=== PATIENT | male | born 1960 | race Caucasian/White ===

== ENCOUNTER 2017-04-09 21:58 | Inpatient (IN) ==
[2017-04-09] MEDS ORDERED: cefTRIAXone 1,000 MG in SODIUM CHLORIDE 0.9% 100 ML IV STA (23:11)
[2017-04-09] MEDS ORDERED: ACETAMINOPHEN 500 MG TABLET PO STA (23:11)
--- NOTE | 2017-04-09 23:20 | Emergency Department Note ---
IDelores Emily, am scribing for, and in the presence of, Florentino Merrill MD 23: 07. Desirae Iglesias Charles R, MD, personally performed the services described in this documentation, ascribed by Gloria Estrella in my presence, and it is both accurate and complete [id number] . Arrival - Arrival Chief Complaint: Fever Stated Complaint: Fever, chills, Body ache, SOB ED Nursing Triage Note: C/O FEVER, CHILLS, ACHES WITH ONSET YESTERDAY Mode of Arrival: Ambulatory Limitations: No Limitations Source: Patient Time Seen by Provider: 04/09/17 22:22 - History of Present Illness HPI Narrative: Pt is a 57 y/o male who came to ED with c/o fever that started yesterday. Pt has associated sxs of body aches, chills, generalized weakness, nausea, intermittent RAMON, and SOB, but denies coughing. Ablation surgery 4 days ago to take care of Afib and has been left feeling weak. Pt stopped Lapressor medication Friday. Pt has been around spouse with RAMON, body aches, flu like sxs recently. Pt is a smoker. PMHx of Afib, HTN, HLD, sleep apnea. Onset (ago): day(s) Consistency: constant Severity: mild, moderate Severity scale (1-10): 4 Quality: aching Allergies/Adverse Reactions: Allergies Allergy/AdvReac Type Severity Reaction Status Date / Time No Known Allergies Allergy Verified 02/24/17 06:13 Home Medications: Home Medications Medication Instructions Recorded Confirmed Type Ezetimibe [Zetia] 10 mg PO QAM 01/13/17 02/24/17 History Acetaminophen [Acetaminophen ER 1,300 mg PO QAM 01/29/17 02/24/17 History Tab] Multivit-Min/FA/Lycopen/Lutein 1 each PO QAM 01/29/17 02/24/17 History [Centrum Silver Tablet] Nabumetone [Relafen] 500 mg PO BID W/MEALS 01/29/17 02/24/17 History Ezetimibe [Zetia] 10 mg PO BEDTIME tablet 02/08/17 02/24/17 Rx Apixaban [Eliquis] 5 mg PO BID #60 02/25/17 Rx Aspirin EC Tab 81 mg PO DAILY #30 tablet 02/25/17 Rx Ibuprofen 400 mg PO Q6H PRN #30 tablet 02/25/17 Rx Metoprolol Succinate Xl [Toprol Xl] 50 mg PO DAILY #90 tablet 02/25/17 Rx Omeprazole Magnesium [Prilosec Otc] 20 mg PO QAM #60 02/25/17 02/24/17 Rx Review of System - Review of System 12 point system: reviewed and no additional remarkable complaints except as stated - Review of System Constitutional: Present: chills, fever, weakness (body aches) Head/Ears/Nose/Throat: Absent: nasal drainage, sore throat (dry mouth) Respiratory: Present: respiratory distress (SOB). Absent: cough, wheezing Cardiovascular: Absent: chest pain Gastrointestinal: Present: nausea. Absent: abdominal pain, vomiting Musculoskeletal: Absent: arm pain, back pain, leg pain, neck pain Skin: Absent: rash Neurological: Present: headache (in waves) Medical,Surgical,& Family Hx - Medical History Cardio: History of: Cardiac Dysrhythmia (A-fib), Hypertension No history of: CAD, [place] Neurology: No history of: Seizures HEENT: History of: Ear Problem ([place] bilateral hearing aides), Eye Problem ( contacts/reading glasses) Endocrine: History of: Dyslipidemia Respiratory: History of: Obstructive Sleep Apnea (Bipap) Musculoskeletal: History of: Degenerative Disk Disease - Surgical History Cardiac Surgeries: Patient Denies: Cardiac Catheterization HEENT Surgeries: Patient denies: Tonsilectomy & Adenoidectomy - Family History Family History: Reports;: Family Cancer (Mother: ovarian CA), Family Heart Disease (Father: ablation, bypass, pacemaker) - Social History Smoking Status: Current every day smoker Frequency of Alcohol Use: None Type of Drug Use: None Exam Vital Signs: Vital Signs Temperature 100.4 F H 04/09/17 23:46 Pulse Rate 96 H 04/09/17 23:46 Respiratory Rate 16 04/09/17 23:46 Blood Pressure 113/70 04/09/17 23:46 O2 Sat by Pulse Oximetry 97 04/09/17 22:08 - General General appearance: alert, in no apparent distress - Head Head exam: Present: atraumatic, normocephalic - Eye Eye exam: Present: PERRL, EOMI - ENT ENT exam: Present: mucous membranes moist. Absent: mucous membranes dry - Neck Neck exam: Present: full ROM. Absent: tenderness - Chest Chest inspection: Present: symmetric chest wall rise, tenderness (left chest wall tenderness) - Respiratory Respiratory exam: Present: normal lung sounds bilaterally. Absent: respiratory distress - Cardiovascular Cardiovascular exam: Present: tachycardia, normal heart sounds - Abdominal Exam Abdominal exam: Present: soft. Absent: distention, tenderness, guarding - Extremities Exam Extremities exam: Present: full ROM. Absent: tenderness, pedal edema - Neurological Exam Neurological exam: Present: alert, oriented X3, CN II-XII intact. Absent: motor sensory deficit - Psychiatric Psychiatric exam: Present: normal affect, normal mood - Skin Skin exam: Present: warm (feels warm to touch), dry, other (erythematous in face ) Course - Consultations Consultation #1: Dr. Giron will admit for Dr. Morris Time: 00:59 Results - Labs CBC & BMP: 04/09/17 23:07 04/09/17 23:07 Lab Results: I have reviewed the patients labs Disposition Clinical Impression: Fever, Pneumonia, Status post heart ablation Case discussed with: patient, patient's family Disposition: Still a Patient Condition: Stable Time of Disposition: 01:00
[2017-04-09] MEDS ORDERED: SODIUM CHLORIDE 0.9% 100 ML IV ONE (23:23)
[2017-04-09] MEDS ORDERED: cefTRIAXone 1,000 MG VIAL ONE (23:23)
[2017-04-09] MEDS ORDERED: ACETAMINOPHEN 500 MG TABLET ONE (23:23)
[2017-04-09 23:36] LABS: Basophils % 0.1 % (0.0-0.8); Eosinophils # 0.1 10*3/uL (0.0-0.87); Eosinophils % 1.3 % (0.00-10.9); Hematocrit 39.5 VOL% (42.0-52.0); Hemoglobin 13.3 GM/DL (14.0-18.0); Immature Granulocytes % 0.3 %; Immature Granulocytes Absolute 0.02 #; Lymphocytes # 1.2 10*3/uL (1.4-4.0); Lymphocytes % 16.4 % (21.2-54.2); Mean Corpuscular HGB Conc 33.7 GM/DL (32-36); Mean Corpuscular Hemoglobin 31 PG (27-34); Mean Corpuscular Volume 90.8 FL (87-102); Mean Platelet Volume 10.3 FL (9.6-12.0); Monocytes # 0.4 10*3/uL (0.11-0.8); Monocytes % 5.8 % (1.7-12.7); Neutrophils # 5.4 10*3/uL (1.4-7.4); Neutrophils % 76.1 % (38.7-73.9); Platelet Count 277 T/CUMM (130-400); Red Blood Count 4.35 MC/CUMM (3.8-5.5); Red Cell Distribution Width 12.7 % (9.3-17.3); White Blood Count 7.1 T/CUMM (4-12)
[2017-04-09 23:45] LABS: Apearance,Urine CLEAR (Clear); Bacteria,Urine Occasional /HPF (Few); Bilirubin,Urine Negative (Negative); Blood, Urine Negative (Negative); Glucose,Urine (UA) Negative (Negative); Ketones,Urine 5 mg/dL (Negative); Mucus,Urine Few /LPF (Occasional); Nitrite,Urine Negative (Negative); Protein,Urine Negative; RBC,Urine 4 /HPF (0-4); Urine Color Yellow (Yellow); Urine Specific Gravity 1.014 (1.001-1.035); Urine Urobilinogen < 2.0 EU/DL (0.2-1.0)
[2017-04-09 23:46] LABS: Albumin 3.9 G/DL (3.4-5.0); Bilirubin,Total 0.5 MG/DL (0.2-1.0); Calcium 8.6 MG/DL (8.5-10.1); Osmolality,Calculated 271.8 MOS/KG (273-304); Total Protein 7.2 G/DL (6.4-8.3)
[2017-04-10 01:09] LABS: Sedimentation Rate-Westergren 19 MM/HR (0-20)
[2017-04-10] MEDS ORDERED: ONDANSETRON 4 MG/2 ML VIAL IV PRN (01:48)
[2017-04-10 02:45] LABS: Albumin 3.7 G/DL (3.4-5.0); Bilirubin,Total 0.5 MG/DL (0.2-1.0); Calcium 8.7 MG/DL (8.5-10.1); Magnesium 1.9 MG/DL (1.8-2.4); Osmolality,Calculated 271.8 MOS/KG (273-304); Potassium 3.9 MMOL/L (3.5-5.1); Total Protein 6.8 G/DL (6.4-8.3)
[2017-04-10] MEDS: SODIUM CHLORIDE 0.9% 1,000 ML IV SCH ×2 (03:15→15:43)
--- NOTE | 2017-04-10 07:51 | Family Practice History&Phys ---
Assessment and Plan (1) Fever Status: Acute Assessment and plan: Patient is developed fever weakness of unknown etiology. Will do further studies to evaluate Current Visit: Yes (2) History of atrial fibrillation Status: Chronic Assessment and plan: Stable post ablation Current Visit: Yes (3) Dyslipidemia Status: Chronic Assessment and plan: Stable at present Current Visit: No (4) Hypertension Status: Chronic Assessment and plan: Stable to present Current Visit: No Qualifiers: Hypertension type: essential hypertension Qualified Code(s): I10 - Essential (primary) hypertension (5) Sleep apnea Status: Chronic Assessment and plan: Stable at present Current Visit: No History of Present Illness Chief complaint: Fever, weakness, chest wall pain History of present illness: Mr. Madison is a 57 year old male - History of Present Illness HPI Narrative: Pt is a 57 y/o male who came to ED with c/o fever that started yesterday. Pt has associated sxs of body aches, chills, generalized weakness, nausea, intermittent RAMON, and SOB, but denies coughing. Ablation surgery 1 month ago to take care of Afib and has been left feeling weak. Pt stopped Lapressor medication Friday. Pt has been around spouse with RAMON, body aches, flu like sxs recently. Pt is a smoker. PMHx of Afib, HTN, HLD, sleep apnea. Patient states that he is actually been weak and dyspneic almost since the ablation procedure. States she has not been able to his normal work activities because of dyspnea. He is having some sharp type pain in the left chest which appears to be chest wall in nature. Seen in emergency room view of history admitted for further evaluation therapy Home Medications Medication Instructions Recorded Confirmed Type Ezetimibe [Zetia] 10 mg PO QAM 01/13/17 04/10/17 History Acetaminophen [Acetaminophen ER 1,300 mg PO QAM 01/29/17 04/10/17 History Tab] Multivit-Min/FA/Lycopen/Lutein 1 each PO QAM 01/29/17 04/10/17 History [Centrum Silver Tablet] Nabumetone [Relafen] 500 mg PO BID W/MEALS 01/29/17 04/10/17 History Apixaban [Eliquis] 5 mg PO BID #60 02/25/17 04/10/17 Rx Ibuprofen 400 mg PO Q6H PRN #30 tablet 02/25/17 04/10/17 Rx Omeprazole Magnesium [Prilosec Otc] 20 mg PO QAM #60 02/25/17 04/10/17 Rx Allergies Allergy/AdvReac Type Severity Reaction Status Date / Time No Known Allergies Allergy Verified 02/24/17 06:13 Medical,Surgical,& Family Hx - Medical History Cardio: History of: Cardiac Dysrhythmia (A-fib), Hypertension No history of: CAD, [place] Psychological: No history of: Anxiety Disorders, ADHD, Behavior Problems, Bipolar Disorder, Depression, Previous Suicide Attempt, Psychiatric/Substance Abuse Tx, Schizophrenia, Violent Behavior, Psychiatric Problems Neurology: No history of: Seizures HEENT: History of: Ear Problem ([place] bilateral hearing aides), Eye Problem ( contacts/reading glasses), HEENT Problems No history of: Glaucoma, Oral Cancer Endocrine: History of: Dyslipidemia No history of: Adrenal Disease, Diabetes Mellitus (IDDM), Diabetes Mellitus ( NIDDM), Thyroid Disorder, Endocrine Cancer, Endocrine Problems Respiratory: History of: Obstructive Sleep Apnea (Bipap), Pneumonia Musculoskeletal: History of: Degenerative Disk Disease No history of: Amputation Hematology: No history of: Anemia, Bleeding Problems, Clotting Problems, Sickle Cell Disease, Hematologic Cancer, Blood Disorders - Surgical History Cardiac Surgeries: Patient Denies: Cardiac Catheterization Thoracic Surgeries: Patient denies;: Organ Transplant, Lobectomy Neurologic Surgeries: Patient denies: Neurologic Surgery HEENT Surgeries: Surgical HX of: Tonsilectomy & Adenoidectomy Patient denies: Eye Surgery, Thyroid Surgery Abdominal Surgeries: Patient denies: Abdominal Surgery Reproductive Surgeries: Patient denies;: Breast Surgery, Genitourinary Surgery, Vasectomy Orthopedic Surgeries: Patient denies;: Implanted Devices, Orthopedic Surgery, Spinal Surgery, Total Hip Replacement, Total Knee Replacement - Family History Family History: Reports;: Family Cancer (Mother: ovarian CA), Family Heart Disease (Father: ablation, bypass, pacemaker) Denies;: Family Anesthesia Reaction, Family Hematology, Family Hypertension, Family Psychiatric Problems, Family Stroke - Social History Smoking Status: Current every day smoker Frequency of Alcohol Use: None Type of Drug Use: None Marital Status: Lives With:: Spouse Functional capacity: independent ambulation Exam - Constitutional Vitals: Period Temp Pulse Resp BP Sys/Parker Pulse Ox Last 24 Hr 97.8 F-99.8 F 71-78 20-20 118-135/69-76 92-94 General appearance: mild distress - Head Head exam: Present: normal inspection - Eye Pupils: Present: AUNDREA - ENT ENT exam: Present: normal exam - Neck Neck exam: Present: normal inspection - Respiratory Respiratory exam: Present: clear to auscultation bilaterally, chest wall tenderness - Cardiovascular Cardiovascular exam: Present: regular rate and rhythm - GI/Abdominal GI/Abdominal exam: Present: normal bowel sounds, soft - Extremities Exam Extremities exam: Present: normal inspection - Back Exam Back exam: Present: normal inspection - Neurological Exam Neurological exam: Present: alert, oriented X3 - Psychiatric Psychiatric exam: Present: normal affect - Skin Skin exam: Present: normal color Results - Labs CBC & BMP: 04/09/17 23:07 04/10/17 02:05
--- NOTE | 2017-04-10 07:55 | Family Practice History&Phys ---
History of Present Illness Chief complaint: Fever and weakness History of present illness: Mr. Madison is a 57 year old male Home Medications Medication Instructions Recorded Confirmed Type Ezetimibe [Zetia] 10 mg PO QAM 01/13/17 04/10/17 History Acetaminophen [Acetaminophen ER 1,300 mg PO QAM 01/29/17 04/10/17 History Tab] Multivit-Min/FA/Lycopen/Lutein 1 each PO QAM 01/29/17 04/10/17 History [Centrum Silver Tablet] Nabumetone [Relafen] 500 mg PO BID W/MEALS 01/29/17 04/10/17 History Apixaban [Eliquis] 5 mg PO BID #60 02/25/17 04/10/17 Rx Ibuprofen 400 mg PO Q6H PRN #30 tablet 02/25/17 04/10/17 Rx Omeprazole Magnesium [Prilosec Otc] 20 mg PO QAM #60 02/25/17 04/10/17 Rx Allergies Allergy/AdvReac Type Severity Reaction Status Date / Time No Known Allergies Allergy Verified 02/24/17 06:13 Medical,Surgical,& Family Hx - Medical History Cardio: History of: Cardiac Dysrhythmia (A-fib), Hypertension No history of: CAD, [place] Psychological: No history of: Anxiety Disorders, ADHD, Behavior Problems, Bipolar Disorder, Depression, Previous Suicide Attempt, Psychiatric/Substance Abuse Tx, Schizophrenia, Violent Behavior, Psychiatric Problems Neurology: No history of: Seizures HEENT: History of: Ear Problem ([place] bilateral hearing aides), Eye Problem ( contacts/reading glasses), HEENT Problems No history of: Glaucoma, Oral Cancer Endocrine: History of: Dyslipidemia No history of: Adrenal Disease, Diabetes Mellitus (IDDM), Diabetes Mellitus ( NIDDM), Thyroid Disorder, Endocrine Cancer, Endocrine Problems Respiratory: History of: Obstructive Sleep Apnea (Bipap), Pneumonia Musculoskeletal: History of: Degenerative Disk Disease No history of: Amputation Hematology: No history of: Anemia, Bleeding Problems, Clotting Problems, Sickle Cell Disease, Hematologic Cancer, Blood Disorders - Surgical History Cardiac Surgeries: Patient Denies: Cardiac Catheterization Thoracic Surgeries: Patient denies;: Organ Transplant, Lobectomy Neurologic Surgeries: Patient denies: Neurologic Surgery HEENT Surgeries: Surgical HX of: Tonsilectomy & Adenoidectomy Patient denies: Eye Surgery, Thyroid Surgery Abdominal Surgeries: Patient denies: Abdominal Surgery Reproductive Surgeries: Patient denies;: Breast Surgery, Genitourinary Surgery, Vasectomy Orthopedic Surgeries: Patient denies;: Implanted Devices, Orthopedic Surgery, Spinal Surgery, Total Hip Replacement, Total Knee Replacement - Family History Family History: Reports;: Family Cancer (Mother: ovarian CA), Family Heart Disease (Father: ablation, bypass, pacemaker) Denies;: Family Anesthesia Reaction, Family Hematology, Family Hypertension, Family Psychiatric Problems, Family Stroke - Social History Smoking Status: Current every day smoker Frequency of Alcohol Use: None Type of Drug Use: None Exam - Constitutional Vitals: Period Temp Pulse Resp BP Sys/Parker Pulse Ox Last 24 Hr 97.8 F-99.8 F 71-78 20-20 118-135/69-76 92-94 Results - Labs CBC & BMP: 04/09/17 23:07 04/10/17 02:05
--- NOTE | 2017-04-10 08:24 | XRay Report ---
XR chest 2V Indication: SOB/fever Comparison: Chest x-ray dated February 11, 2017 Technique: Frontal and lateral views of the chest Findings: Cardiomediastinal silhouette is stable in configuration. No focal consolidation, pleural effusion, or pneumothorax. Bilateral peribronchial cuffing is noted which can be seen with reactive change of viral or environmental origin. Osseous and surrounding soft tissue structures appear grossly unchanged. IMPRESSION: As above. PROCEDURE INTERPRETED AT [facility] DEPARTMENT OF RADIOLOGY Final Report Signed by: Dr Alvaro Conrad
--- NOTE | 2017-04-10 08:50 | Event Note ---
I spoke with Dr. Bhatia this morning regarding patient's admission. Patient is status post RFA January 2017. Because of the weakness, fever the following is being ordered: CT Chest with contrast (R/O atrial-esophageal fistula), echo, ESR and CRP.
[2017-04-10] MEDS: DOCUSATE SODIUM 100 MG CAPSULE PO SCH ×3 (09:22→21:46)
[2017-04-10] MEDS: APIXABAN 5 MG TABLET PO SCH ×3 (09:22→21:43)
[2017-04-10] MEDS: MULTIVITAMIN (CENTRUM) TABLET PO SCH (09:22)
[2017-04-10] MEDS: EZETIMIBE 10 MG TABLET PO SCH (09:22)
[2017-04-10] MEDS: PANTOPRAZOLE 40 MG TABLET PO SCH (09:23)
--- NOTE | 2017-04-10 10:49 | CT Report ---
CT chest w con Indication: Rule out atrial esophageal fistula post RFA Comparison: None Technique: Multiple axial tomographic images of the chest were obtained after the administration of 80 cc Omnipaque 350 intravenous contrast. Findings: No evidence of aortic dissection. [id number] prominence of right hilar lymph node measuring up to 1.2 cm in short axis dimension. There is mild bilateral lymph node prominence which do not meet CT size criteria. Coronary artery calcifications present. Heart size appears within normal limits. Mild dependent change of the lungs present. Too small to characterize right renal cyst. Bilobular left renal cyst measuring up to 3.4 cm. Hypodense oval structure within proximal stomach measuring approximately 2 cm likely reflects an ingested pill. The esophagus and left atrium appear grossly unremarkable. Osseous and surrounding soft tissue structures demonstrate no acute abnormality. IMPRESSION: The left atrium and thoracic esophagus appear within normal limits without convincing CT evidence of fistula. There is mild nonspecific prominence of hilar lymph nodes. Detailed findings as above. The CT exam was performed using one or more of the following dose reduction techniques: Automated exposure control, adjustment of the mA and/or kV according to patient size, or use of iterative reconstruction technique. PROCEDURE INTERPRETED AT [facility] DEPARTMENT OF RADIOLOGY Final Report Signed by: Dr Alvaro Conrad
--- NOTE | 2017-04-10 16:05 | Cardiology Consult Note ---
Harris, Christi Parks RN, am scribing for, and in the presence of, Isak Taylor MD 16:01. Assessment and Plan - Time spent with patient Time spent with patient: Greater than 30 minutes (1) S/P ablation of atrial fibrillation Status: Acute Assessment and plan: INITIAL CONSULT APRIL 10, 2017: ASSESSMENT/PLAN: 1. 57-year-old with hypertension, dyslipidemia, VANESSA, paroxysmal fibrillation status post ablation January 2017 had some intermittent fatigue and chest discomfort since his ablation, and modest dyspnea on exertion for over 6 months which is unchanged, who presented with some degree of prostration nausea and fever which she developed less than 48 hours after his had similar symptoms. 2. CT shows no suggestion of atrial esophageal fistula 3. Suspect this is an illness he caught from his 4. Recurrent atypical chest pain, may be pericardial etiology? It occasionally is exertional but this is not consistent he has a rest as well. I agree with NSAIDs. 5. Normal ejection fraction October 2016, with reportedly unremarkable stress test last fall with Dr. Martinez office. 6. Supportive care Current Visit: Yes (2) Fever Status: Acute Current Visit: Yes (3) History of atrial fibrillation Status: Chronic Current Visit: Yes (4) Dyslipidemia Status: Chronic Current Visit: No (5) Hypertension Status: Chronic Current Visit: No Qualifiers: Hypertension type: essential hypertension Qualified Code(s): I10 - Essential (primary) hypertension (6) Sleep apnea Status: Chronic Current Visit: No (7) Statin intolerance Status: Chronic Current Visit: No (8) Tobacco abuse Status: Chronic Current Visit: No (9) Weakness Status: Acute Current Visit: Yes History of Present Illness - Data of Consult Patient: known to practice within the last 3 years Consult date: 04/10/17 Requesting Physician: Florentino Merrill - Consult Narrative Reason for consult: fever, weakness, flu like s/s, recent AF ablation w/ PVI History of present illness: PRIMARY [employer] DECORATOR: DR. KERI MARTINEZ PCP: DR. MORRIS TOMOGRAPHIC TECH: DR. PATRICA BHATIA CARDIOLOGY CONSULT NOTE: FEVER, WEAKNESS, STATUS POST A-FIB ABLATION JANUARY 2017 Mr. Madison is a 57 year old white male routinely followed by Dr. Martinez for cardiology. Risk factors include: hypertension, hyperlipidemia, tobaccosim. Past medical history significant for paroxysmal atrial fibrillation, VAENSSA with BiPap use, statin intolerance (currently takes Zetia). Mr. Madison was recently diagnosed with atrial fibrillation in October 2016, and this was discovered incidentally by Dr. Ben Christine during examination prior to nerve ablation. Upon diagnosis, patient had no previous knowledge of having atrial fibrillation. Since October, patient had multiple admissions for atrial fibrillation with RVR and has become symptomatic. He was referred to Dr. Bhatia for ablation, and on 02/24/17 underwent ablation of atrial fibrillation with pulmonary vein isolation. Post ablation, Multitak and Cardizem were discontinued. Patient followed up with Dr. Bhatia in clinic on 03/11 and felt generally well. During visit, metoprolol was continued 1 month and discontinue. Eliquis was continued. Patient presented to the emergency room on the night of 04/09 with complaints of fever, generalized weakness, shortness of breath, chills, and nausea with onset the day before. He did deny cough or sputum production. Patient noted to have temperature 100.4F. He did admit to being exposed to spouse who has also recently had flulike symptoms. [facility]. Since admission, he has complained of some left- sided chest pain, has admitted to dyspnea, and this has prevented him from returning to work. Dr. Bhatia was consulted for further evaluation, and as he is out of town at this time, cardiology will follow. Previous echocardiogram October 2016 with normal systolic/diastolic function and LV ejection fraction 60%, mild dilation of right cardiac chambers, normal pulmonary pressure, and mild left atrial dilation. We have spoken with Dr. Bhatia, and care has been coordinated. Patient will have CT chest with contrast, echo, CRP and ESR. Rule out atrial esophageal fistula. CC: Mitesh Morris, DO - Home Medications and Allergies Home Medications: Home Medications Medication Instructions Recorded Confirmed Type Ezetimibe [Zetia] 10 mg PO QAM 01/13/17 04/10/17 History Acetaminophen [Acetaminophen ER 1,300 mg PO QAM 01/29/17 04/10/17 History Tab] Multivit-Min/FA/Lycopen/Lutein 1 each PO QAM 01/29/17 04/10/17 History [Centrum Silver Tablet] Nabumetone [Relafen] 500 mg PO BID W/MEALS 01/29/17 04/10/17 History Apixaban [Eliquis] 5 mg PO BID #60 02/25/17 04/10/17 Rx Ibuprofen 400 mg PO Q6H PRN #30 tablet 02/25/17 04/10/17 Rx Omeprazole Magnesium [Prilosec Otc] 20 mg PO QAM #60 02/25/17 04/10/17 Rx Allergies/Adverse Reactions: Allergies Allergy/AdvReac Type Severity Reaction Status Date / Time No Known Allergies Allergy Verified 02/24/17 06:13 Medical,Surgical,& Family Hx - Medical History Cardio: History of: Cardiac Dysrhythmia (A-fib), Hypertension No history of: CHF, CAD, ID, Pacemaker, PVD, Valvular Heart Disease Psychological: No history of: Anxiety Disorders, ADHD, Behavior Problems, Bipolar Disorder, Depression, Previous Suicide Attempt, Psychiatric/Substance Abuse Tx, Schizophrenia, Violent Behavior, Psychiatric Problems Neurology: No history of: Seizures HEENT: History of: Ear Problem (MIAMI bilateral hearing aides), Eye Problem ( contacts/reading glasses), HEENT Problems No history of: Glaucoma, Oral Cancer Endocrine: History of: Dyslipidemia No history of: Adrenal Disease, Diabetes Mellitus (IDDM), Diabetes Mellitus ( NIDDM), Thyroid Disorder, Endocrine Cancer, Endocrine Problems Respiratory: History of: Obstructive Sleep Apnea (Bipap), Pneumonia No history of: Pulmonary Hypertension Gastrointestinal: History of: GERD Musculoskeletal: History of: Degenerative Disk Disease No history of: Amputation Hematology: No history of: Anemia, Bleeding Problems, Clotting Problems, Sickle Cell Disease, Hematologic Cancer, Blood Disorders - Surgical History Cardiac Surgeries: Patient Denies: Cardiac Catheterization Thoracic Surgeries: Patient denies;: Organ Transplant, Lobectomy Neurologic Surgeries: Patient denies: Neurologic Surgery HEENT Surgeries: Surgical HX of: Tonsilectomy & Adenoidectomy Patient denies: Eye Surgery, Thyroid Surgery Abdominal Surgeries: Patient denies: Abdominal Surgery Reproductive Surgeries: Patient denies;: Breast Surgery, Genitourinary Surgery, Vasectomy Orthopedic Surgeries: Patient denies;: Implanted Devices, Orthopedic Surgery, Spinal Surgery, Total Hip Replacement, Total Knee Replacement - Family History Family History: Reports;: Family Cancer (Mother: ovarian CA), Family Heart Disease (Father: ablation, bypass, pacemaker) Denies;: Family Anesthesia Reaction, Family Hematology, Family Hypertension, Family Psychiatric Problems, Family Stroke - Social History Smoking Status: Current every day smoker Frequency of Alcohol Use: None Type of Drug Use: None Physical Examination Vital Signs Temp Pulse Resp BP Pulse Ox 100.4 F H 96 H 20 113/70 97 04/09/17 22:08 04/09/17 22:08 04/09/17 22:08 04/09/17 22:08 04/09/17 22:08 Result/EKG - Labs CBC & BMP: 04/09/17 23:07 04/10/17 02:05 Lab Results: I have reviewed the past 24 hour labs Labs: Laboratory Results - last 24 hr 04/10/17 04/10/17 02:05 02:05 Sodium 137 Potassium 3.9 Chloride 106 Carbon Dioxide 23 Anion Gap 11.9 BUN 9 Creatinine 0.90 GFR Calculation 123 BUN/Creatinine Ratio 10.00 Glucose 97 Calculated Osmolality 271.8 L Calcium 8.7 Magnesium 1.9 Total Bilirubin 0.50 AST 13 ALT 22 Alkaline Phosphatase 81 B-Natriuretic Peptide 14 Total Protein 6.8 Albumin 3.7 Globulin 3.1 Albumin/Globulin Ratio 1.1 - Diagnostic Findings Procedure: Chest x-ray: image reviewed by me, report reviewed by me (04/09/17: No consolidation, pleural effusion, or pneumothorax. Bilateral peribronchial cuffing noted, and can be seen with viral change.) - EKG EKG results: interpreted by me, no acute changes EKG shows: sinus rhythm Brandon Iglesias Randall Scott, MD, personally performed the services described in this documentation, ascribed by Christi Parks RN in my presence, and it is both accurate and complete 605 .
[2017-04-10] MEDS: IBUPROFEN 400 MG TABLET PO PRN (16:51)
[2017-04-10] MEDS: NABUMETONE 500 MG TABLET PO SCH (17:09)
--- NOTE | 2017-04-10 17:52 | ECHO Report ---
Brooks Madison Exam Date: 04/10/2017 11:02 Referring Physician: Technologist: Nidhi Nick Age: 57 Ht (in): 73 Wt (lb): 228 Gender: M Exam Location: [facility] Echo Indications: a FIB, dyspnea, chest pain, fever, pneumonia BP: 122 / 59 HR: 66 Rhythm: Sinus Technical Quality: IMPRESSIONS 2+ left atrial enlargement 2+ concentric LVH Normal LV systolic function with ejection fraction estimated 55% without segmental wall motion abnormality 1+ tricuspid regurgitation with RVSP 17 mmHg plus RAP Monitor strip suggests sinus mechanism MEASUREMENTS (Male / Female) Normal Values 2D ECHO LV Diastolic Diameter PLAX 4.6 cm 4.2 - 5.9 / 3.9 - 5.3 cm LV Systolic Diameter PLAX 3.6 cm LV Fractional Shortening PLAX 21.2 % IVS Diastolic Thickness 1.7 cm 0.6 - 1.0 / 0.6 - 0.9 cm LVPW Diastolic Thickness 1.6 cm 0.6 - 1.0 / 0.6 - 0.9 cm RV Internal Dim ED PLAX 3.0 cm Aortic Root Diameter 2.9 cm LA Systolic Diameter LX 4.5 cm 3.0 - 4.0 / 2.7 - 3.8 cm DOPPLER TR Peak Velocity 205.0 cm/s TR Peak Gradient 16.8 mmHg FINDINGS Left Ventricle Severely increased septal wall thickness. Moderate concentric left ventricular hypertrophy with diastolic dysfunction. Left ventricular ejection fraction is estimated at Right Ventricle Normal right ventricular size. Right Atrium Normal right atrial size. Left Atrium Mildly increased left atrial diameter. Mitral Valve Mild mitral valve sclerosis. Mild mitral valve regurgitation. Aortic Valve Mild aortic valve sclerosis. Tricuspid Valve Morphologically normal tricuspid valve. Mild tricuspid valve regurgitation. Tricuspid regurgitation velocities suggest a PAP of 16.8 mmHg + RAP. Pulmonic Valve Morphologically normal pulmonic valve. Pericardium No pericardial effusion. Aorta Normal size aortic root and proximal ascending aorta. Isak Taylor (Electronically Signed) Final Date: 10 Apr 2017 17:51
[2017-04-10] MEDS: ACETAMINOPHEN 325 MG TABLET PO PRN (21:39)
[2017-04-10] MEDS: cefTRIAXone 1,000 MG in SODIUM CHLORIDE 0.9% 100 ML IV SCH (23:13)
[2017-04-10] MEDS: oxyCODONE/ACETAMINOPHEN 5-325 MG TABLET PO PRN (23:52)
[2017-04-11] MEDS: SODIUM CHLORIDE 0.9% 1,000 ML IV SCH ×2 (04:14→17:10)
[2017-04-11 06:16] LABS: Basophils % 0.1 % (0.0-0.8); Eosinophils # 0.2 10*3/uL (0.0-0.87); Eosinophils % 2.6 % (0.00-10.9); Hematocrit 36.2 VOL% (42.0-52.0); Immature Granulocytes % 0.3 %; Immature Granulocytes Absolute 0.02 #; Lymphocytes # 2.6 10*3/uL (1.4-4.0); Lymphocytes % 34.4 % (21.2-54.2); Mean Corpuscular HGB Conc 33.1 GM/DL (32-36); Mean Corpuscular Hemoglobin 31 PG (27-34); Mean Platelet Volume 10.4 FL (9.6-12.0); Monocytes # 0.8 10*3/uL (0.11-0.8); Monocytes % 10.4 % (1.7-12.7); Neutrophils # 3.9 10*3/uL (1.4-7.4); Neutrophils % 52.2 % (38.7-73.9); Platelet Count 240 T/CUMM (130-400); Red Blood Count 3.85 MC/CUMM (3.8-5.5); Red Cell Distribution Width 12.9 % (9.3-17.3); White Blood Count 7.4 T/CUMM (4-12)
[2017-04-11 06:46] LABS: Calcium 8.3 MG/DL (8.5-10.1); Magnesium 2.3 MG/DL (1.8-2.4); Osmolality,Calculated 276.4 MOS/KG (273-304)
[2017-04-11 08:57] LABS: Apearance,Urine CLEAR (Clear); Bilirubin,Urine Negative (Negative); Blood, Urine Negative (Negative); Glucose,Urine (UA) Negative (Negative); Ketones,Urine Negative (Negative); Mucus,Urine Occasional /LPF (Occasional); Nitrite,Urine Negative (Negative); Protein,Urine Negative; RBC,Urine 1 /HPF (0-4); Urine Color Yellow (Yellow); Urine Specific Gravity 1.014 (1.001-1.035); Urine Urobilinogen < 2.0 EU/DL (0.2-1.0); WBC,Urine <1 /HPF (0-6)
[2017-04-11] MEDS: NABUMETONE 500 MG TABLET PO SCH ×2 (09:00→16:44)
[2017-04-11] MEDS: APIXABAN 5 MG TABLET PO SCH ×2 (09:00→21:07)
[2017-04-11] MEDS: EZETIMIBE 10 MG TABLET PO SCH (09:00)
[2017-04-11] MEDS: MULTIVITAMIN (CENTRUM) TABLET PO SCH (09:00)
[2017-04-11] MEDS: PANTOPRAZOLE 40 MG TABLET PO SCH (09:01)
[2017-04-11] MEDS: DOCUSATE SODIUM 100 MG CAPSULE PO SCH ×2 (09:01→21:07)
[2017-04-11] MEDS: IBUPROFEN 400 MG TABLET PO PRN ×2 (09:03→16:44)
--- NOTE | 2017-04-11 10:26 | EKG Report ---
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
--- NOTE | 2017-04-11 11:50 | Family Practice Progress Note ---
Family Practice - PN: Subj Interval history: Patient was initially admitted with fever or weakness and chest pain. Patient has been weak since recent ablation treatment for atrial fibrillation. He thinks some of the weakness was related to Lopressor that he was started on following the ablation. He stopped the Lopressor 2 days ago. I had treated his earlier in the week with similar complaints of cough congestion fever headache etc. Patient's symptoms are very similar to her original symptoms. The patient's chest complaints appear to Be chest wall in nature. I can reproduce the pain by palpation anterior chest wall with pain over the posterior insertion of the same ribs. Chest x-ray, lab studies and cardiac echo were unremarkable. He also had a chest CT which is unremarkable. Cultures have been negative. Patient states she feels some better but still weak. I feel that most of his symptoms are viral in nature. We'll continue present therapy and have patient increase level of activity. Hopefully be ready for discharge in a.m.. His lung mathew are clear to auscultation and the remainder of exam is stable. Exam (Progress Note) - Constitutional Vitals: Period Temp Pulse Resp BP Sys/Parker Pulse Ox Last 24 Hr 98.2 F-99.5 F 54-75 18-20 94-121/51-71 92-97 Results - Labs CBC & BMP: 04/11/17 05:26 04/11/17 05:26 Assessment and Plan (1) Fever Status: Acute Assessment and plan: Patient is developed fever weakness of unknown etiology. Will do further studies to evaluate Current Visit: Yes (2) History of atrial fibrillation Status: Chronic Assessment and plan: Stable post ablation Current Visit: Yes (3) Dyslipidemia Status: Chronic Assessment and plan: Stable at present Current Visit: No (4) Hypertension Status: Chronic Assessment and plan: Stable to present Current Visit: No Qualifiers: Hypertension type: essential hypertension Qualified Code(s): I10 - Essential (primary) hypertension (5) Sleep apnea Status: Chronic Assessment and plan: Stable at present Current Visit: No
--- NOTE | 2017-04-11 11:53 | XRay Report ---
XR chest 2V Indication: Shortness of breath. Chest 2 views: Comparison 04/09/2017. Increasing patchy infiltrate left perihilar lung noted, as well as some increased interstitial prominence of both lung bases. Pulmonary apices remain clear. Heart size is normal. Impression: Worsening left perihilar and bibasilar pneumonia and/or atelectasis. Query aspiration. PROCEDURE INTERPRETED AT [facility] DEPARTMENT OF RADIOLOGY Final Report Signed by: Andrea Badillo M.D.
[2017-04-11] MEDS: ALBUTEROL/IPRATROPIUM 3 ML NEB RESP TX PRN (15:16)
[2017-04-11] MEDS: oxyCODONE/ACETAMINOPHEN 5-325 MG TABLET PO PRN (21:07)
[2017-04-11] MEDS: cefTRIAXone 1,000 MG in SODIUM CHLORIDE 0.9% 100 ML IV SCH (21:10)
[2017-04-12] MEDS: IBUPROFEN 400 MG TABLET PO PRN ×2 (01:25→08:31)
[2017-04-12 06:02] LABS: Basophils % 0.3 % (0.0-0.8); Eosinophils # 0.3 10*3/uL (0.0-0.87); Eosinophils % 5.7 % (0.00-10.9); Hematocrit 35.7 VOL% (42.0-52.0); Immature Granulocytes % 0.3 %; Immature Granulocytes Absolute 0.02 #; Lymphocytes # 2.4 10*3/uL (1.4-4.0); Lymphocytes % 42.5 % (21.2-54.2); Mean Corpuscular HGB Conc 33.6 GM/DL (32-36); Mean Corpuscular Hemoglobin 31 PG (27-34); Mean Corpuscular Volume 91.5 FL (87-102); Monocytes # 0.6 10*3/uL (0.11-0.8); Monocytes % 10.5 % (1.7-12.7); Neutrophils # 2.3 10*3/uL (1.4-7.4); Neutrophils % 40.7 % (38.7-73.9); Platelet Count 252 T/CUMM (130-400); Red Cell Distribution Width 12.7 % (9.3-17.3); White Blood Count 5.7 T/CUMM (4-12)
[2017-04-12 06:35] LABS: Calcium 8.5 MG/DL (8.5-10.1); Magnesium 2.1 MG/DL (1.8-2.4)
[2017-04-12] MEDS: MULTIVITAMIN (CENTRUM) TABLET PO SCH (08:31)
[2017-04-12] MEDS: PANTOPRAZOLE 40 MG TABLET PO SCH (08:32)
[2017-04-12] MEDS: EZETIMIBE 10 MG TABLET PO SCH (08:32)
[2017-04-12] MEDS: DOCUSATE SODIUM 100 MG CAPSULE PO SCH ×2 (08:32→20:49)
[2017-04-12] MEDS: APIXABAN 5 MG TABLET PO SCH ×2 (08:32→20:49)
[2017-04-12] MEDS: NABUMETONE 500 MG TABLET PO SCH ×2 (08:33→20:00)
--- NOTE | 2017-04-12 17:09 | Discharge Summary ---
Discharge Plan - Discharge Medications No Action Multivit-Min/FA/Lycopen/Lutein [Centrum Silver Tablet] 1 each PO QAM Nabumetone [Relafen] 500 mg PO BID W/MEALS Ibuprofen 400 mg PO Q6H PRN #30 tablet PRN Reason: Chest Pain Apixaban [Eliquis] 5 mg PO BID #60 Omeprazole Magnesium [Prilosec Otc] 20 mg PO QAM #60 Ezetimibe [Zetia] 10 mg PO QAM Acetaminophen [Acetaminophen ER Tab] 1,300 mg PO QAM - Follow Up or Referral - Forms/Instructions Exam - Constitutional Vitals: Period Temp Pulse Resp BP Sys/Parker Pulse Ox Last 24 Hr 97.3 F-98.7 F 60-63 16-20 100-129/55-78 93-98 Discharge Results Procedures and tests throughout hospitalization: Pending Orders 04/13/17 04:00 BMP w/ Mg [Basic Metabolic Panel w/Mg] IN AM CBC [Comp Blood Count Auto Diff] IN AM 04/14/17 04:00 BMP w/ Mg [Basic Metabolic Panel w/Mg] IN AM CBC [Comp Blood Count Auto Diff] IN AM Labs on day of discharge: Labs from last 24 hours 04/12/17 04/12/17 05:22 05:22 WBC 5.7 RBC 3.90 Hgb 12.0 L Hct 35.7 L MCV 91.5 MCH 31 MCHC 33.6 RDW 12.7 Plt Count 252 MPV 11.0 Neut % (Auto) 40.7 Lymph % (Auto) 42.5 Harmon % (Auto) 10.5 Eos % (Auto) 5.7 Baso % (Auto) 0.3 Neut # (Auto) 2.3 Lymph # (Auto) 2.4 Harmon # (Auto) 0.6 Eos # (Auto) 0.3 Baso # (Auto) 0.0 Immature Gran % 0.3 Nucleated RBC % 0.0 Immature Gran # 0.02 Nucleated RBCs # 0.00 Sodium 143 Potassium 4.0 Chloride 108 H Carbon Dioxide 25 Anion Gap 14.0 BUN 7 Creatinine 0.70 GFR Calculation 137 BUN/Creatinine Ratio 10.00 Glucose 102 Calculated Osmolality 282.0 Calcium 8.5 Magnesium 2.1 DS: Provider Date of admission: 04/10/17 01:02 Primary care physician: . No PCP Attending physician on admission: Mitesh Morris, Discharging clinician: Kacy Jean DO
--- NOTE | 2017-04-12 17:18 | Internal Med Progress Note ---
Assessment and Plan (1) Elevated C-reactive protein (CRP) Status: Acute Current Visit: Yes (2) Pneumonia Status: Acute Current Visit: Yes (3) S/P ablation of atrial fibrillation Status: Chronic Current Visit: Yes (4) Weakness Status: Chronic Current Visit: Yes (5) History of atrial fibrillation Status: Chronic Current Visit: Yes (6) Hypertension Status: Chronic Current Visit: Yes Qualifiers: Hypertension type: essential hypertension Qualified Code(s): I10 - Essential (primary) hypertension (7) Sleep apnea Status: Chronic Current Visit: Yes Qualifiers: Sleep apnea type: obstructive Qualified Code(s): G47.33 - Obstructive sleep apnea (adult) (pediatric) Internal Medicine - PN: Subj Interval history: This is a 57 year old male patient of Dr. Morris with history of OA, VANESSA with BiPAP, HTN, dyslipidemia, intolerance to statins, chronic atrial fibrillation and status post ablation per Dr. Bhatia, who presented to ER with worsening weakness and exertional shortness of breath since the ablation several weeks ago. He has been treated for pneumonia. Inflammatory markers are elevated. Have added Toradol and Solumedrol for anti-inflammatory effect. Exam (Progress Note) - Constitutional Vitals: Period Temp Pulse Resp BP Sys/Parker Pulse Ox Last 24 Hr 97.3 F-98.7 F 60-63 16-20 100-129/55-78 93-98 General appearance: no acute distress - Head Head exam: Present: normocephalic - Eye Eye exam: Present: EOMI - Respiratory Respiratory exam: Present: clear to auscultation bilaterally. Absent: rhonchi - Cardiovascular Cardiovascular exam: Present: regular rate and rhythm - GI/Abdominal GI/Abdominal exam: Present: soft. Absent: tenderness - Extremities Exam Extremities exam: Absent: edema - Neurological Exam Neurological exam: Present: alert, oriented X3 - Psychiatric Psychiatric exam: Present: normal mood - Skin Skin exam: Present: warm, dry Results - Labs CBC & BMP: 04/12/17 05:22 04/12/17 05:22 - Diagnostic Findings Procedure: Chest x-ray: report reviewed by me
[2017-04-12] MEDS ORDERED: KETOROLAC 15 MG/1 ML VIAL IV PRN (17:30)
[2017-04-12] MEDS: cefTRIAXone 1,000 MG in SODIUM CHLORIDE 0.9% 100 ML IV SCH (20:50)
[2017-04-12] MEDS: ACETAMINOPHEN 325 MG TABLET PO PRN (23:04)
[2017-04-13] MEDS: methylPREDNISolone SOD SUC 40 MG/1 ML VIAL IV SCH ×4 (01:59→17:22)
[2017-04-13 06:37] LABS: Basophils % 0.1 % (0.0-0.8); Hematocrit 37.5 VOL% (42.0-52.0); Hemoglobin 12.6 GM/DL (14.0-18.0); Immature Granulocytes % 0.4 %; Immature Granulocytes Absolute 0.04 #; Lymphocytes # 0.9 10*3/uL (1.4-4.0); Lymphocytes % 9.8 % (21.2-54.2); Mean Corpuscular HGB Conc 33.6 GM/DL (32-36); Mean Corpuscular Hemoglobin 31 PG (27-34); Mean Corpuscular Volume 91.5 FL (87-102); Mean Platelet Volume 10.5 FL (9.6-12.0); Monocytes # 0.1 10*3/uL (0.11-0.8); Monocytes % 1.1 % (1.7-12.7); Neutrophils # 8.5 10*3/uL (1.4-7.4); Neutrophils % 88.6 % (38.7-73.9); Platelet Count 312 T/CUMM (130-400); Red Cell Distribution Width 12.2 % (9.3-17.3); White Blood Count 9.6 T/CUMM (4-12)
[2017-04-13 07:11] LABS: Calcium 9.3 MG/DL (8.5-10.1); Osmolality,Calculated 277.5 MOS/KG (273-304); Potassium 4.5 MMOL/L (3.5-5.1)
[2017-04-13] MEDS: PANTOPRAZOLE 40 MG TABLET PO SCH (08:07)
[2017-04-13] MEDS: EZETIMIBE 10 MG TABLET PO SCH (08:07)
[2017-04-13] MEDS: DOCUSATE SODIUM 100 MG CAPSULE PO SCH ×2 (08:07→22:03)
[2017-04-13] MEDS: MULTIVITAMIN (CENTRUM) TABLET PO SCH (08:07)
[2017-04-13] MEDS: APIXABAN 5 MG TABLET PO SCH ×2 (08:07→22:02)
[2017-04-13] MEDS: ALBUTEROL/IPRATROPIUM 3 ML NEB RESP TX PRN ×2 (11:58→15:29)
--- NOTE | 2017-04-13 15:34 | Internal Med Progress Note ---
Assessment and Plan (1) Elevated C-reactive protein (CRP) Status: Acute Current Visit: Yes (2) Pneumonia Status: Acute Current Visit: Yes (3) S/P ablation of atrial fibrillation Status: Chronic Current Visit: Yes (4) Weakness Status: Chronic Current Visit: Yes (5) History of atrial fibrillation Status: Chronic Current Visit: Yes (6) Hypertension Status: Chronic Current Visit: Yes Qualifiers: Hypertension type: essential hypertension Qualified Code(s): I10 - Essential (primary) hypertension (7) Sleep apnea Status: Chronic Current Visit: Yes Qualifiers: Sleep apnea type: obstructive Qualified Code(s): G47.33 - Obstructive sleep apnea (adult) (pediatric) Internal Medicine - PN: Subj Interval history: This is a 57 year old male patient of Dr. Morris with history of OA, VANESSA with BiPAP, HTN, dyslipidemia, intolerance to statins, chronic atrial fibrillation and status post ablation per Dr. Bhatia, who presented to ER with worsening weakness and exertional shortness of breath since the ablation several weeks ago. He has been treated for pneumonia. Inflammatory markers are elevated. Have added Toradol and Solumedrol for anti-inflammatory effect. Friday, body aches improved overnight, and he is feeling better. Will continue current regimen another day, and he can discuss discharge planning with Dr. Morris tomorrow. Agree with Dr. Morris that inflammation likely coming from recent cardiac ablation site/chest soreness. Discussed with patient. Exam (Progress Note) - Constitutional Vitals: Period Temp Pulse Resp BP Sys/Parker Pulse Ox Last 24 Hr 98 F-98.3 F 58-77 15-20 107-134/60-82 92-100 General appearance: no acute distress - Respiratory Respiratory exam: Present: clear to auscultation bilaterally - Cardiovascular Cardiovascular exam: Present: regular rate and rhythm - GI/Abdominal GI/Abdominal exam: Present: soft. Absent: tenderness - Extremities Exam Extremities exam: Absent: edema - Neurological Exam Neurological exam: Present: alert, oriented X3 - Psychiatric Psychiatric exam: Present: normal mood - Skin Skin exam: Present: warm, dry Results - Labs CBC & BMP: 04/13/17 06:12 04/13/17 06:12
[2017-04-13] MEDS: cefTRIAXone 1,000 MG in SODIUM CHLORIDE 0.9% 100 ML IV SCH (22:02)
[2017-04-13] MEDS: ACETAMINOPHEN 325 MG TABLET PO PRN (22:05)
[2017-04-14] MEDS: methylPREDNISolone SOD SUC 40 MG/1 ML VIAL IV SCH ×2 (01:46→08:22)
[2017-04-14 05:40] LABS: Basophils % 0.1 % (0.0-0.8); Hematocrit 36.8 VOL% (42.0-52.0); Hemoglobin 12.4 GM/DL (14.0-18.0); Immature Granulocytes % 0.9 %; Immature Granulocytes Absolute 0.15 #; Lymphocytes # 1.3 10*3/uL (1.4-4.0); Lymphocytes % 8.3 % (21.2-54.2); Mean Corpuscular HGB Conc 33.7 GM/DL (32-36); Mean Corpuscular Hemoglobin 31 PG (27-34); Mean Corpuscular Volume 92.7 FL (87-102); Mean Platelet Volume 10.4 FL (9.6-12.0); Monocytes # 0.6 10*3/uL (0.11-0.8); Monocytes % 3.5 % (1.7-12.7); Neutrophils % 87.2 % (38.7-73.9); Platelet Count 343 T/CUMM (130-400); Red Blood Count 3.97 MC/CUMM (3.8-5.5); Red Cell Distribution Width 12.6 % (9.3-17.3); White Blood Count 16.1 T/CUMM (4-12)
[2017-04-14 06:25] LABS: Calcium 9.5 MG/DL (8.5-10.1); Magnesium 2.2 MG/DL (1.8-2.4); Osmolality,Calculated 282.3 MOS/KG (273-304); Potassium 4.5 MMOL/L (3.5-5.1)
--- NOTE | 2017-04-14 07:03 | Cardiology Progress Note ---
Cardiology - PN: Subj Interval history: Cardiology note 57-year-old man status post A. fib ablation January 2017. Admitted with weakness and probable pneumonia. Patient is doing much better. No temperature. Good appetite. O2 sat 95% on 2 L Blood pressure 125/70 Decreased breath sounds but clear Regular rhythm no murmur or gallop Impression Recent pneumonia with weakness and shortness of breath Status post A. fib ablation January 2017 Obstructive sleep apnea Recent echo showed ejection fraction of 60% with mildly dilated atrium and normal PA pressure CT the chest showed nonspecific hilar nodes and no evidence for LA to esophageal fistula Home soon per Dr. Morris Exam (Progress Note) - Constitutional Vitals: Period Temp Pulse Resp BP Sys/Parker Pulse Ox Last 24 Hr 98.2 F-99.1 F 60-93 15-21 119-154/62-74 93-100 Result/EKG - Labs CBC & BMP: 04/14/17 05:10 04/14/17 05:10 Labs: Laboratory Results - last 24 hr 04/13/17 04/14/17 04/14/17 06:12 05:10 05:10 WBC 16.1 H D RBC 3.97 Hgb 12.4 L Hct 36.8 L MCV 92.7 MCH 31 MCHC 33.7 RDW 12.6 Plt Count 343 MPV 10.4 Neut % (Auto) 87.2 H Lymph % (Auto) 8.3 L [place] % (Auto) 3.5 Eos % (Auto) 0.0 Baso % (Auto) 0.1 Neut # (Auto) 14.0 H Lymph # (Auto) 1.3 L [place] # (Auto) 0.6 Eos # (Auto) 0.0 Baso # (Auto) 0.0 Immature Gran % 0.9 Nucleated RBC % 0.0 Immature Gran # 0.15 Nucleated RBCs # 0.00 Sodium 139 141 Potassium 4.5 4.5 Chloride 105 106 Carbon Dioxide 25 27 Anion Gap 13.5 12.5 BUN 11 13 Creatinine 1.00 0.90 GFR Calculation 109 124 BUN/Creatinine Ratio 11.00 14.00 Glucose 135 H 136 H Calculated Osmolality 277.5 282.3 Calcium 9.3 9.5 Magnesium 2.0 2.2
--- NOTE | 2017-04-14 08:12 | Discharge Summary ---
Hospital Course - Hospital Course Hospital Course: Pt is a 57 y/o male who came to ED with c/o fever that started yesterday. Pt has associated sxs of body aches, chills, generalized weakness, nausea, intermittent RAMON, and SOB, but denies coughing. Ablation surgery 1 month ago to take care of Afib and has been left feeling weak. Pt stopped Lapressor medication Friday. Pt has been around spouse with RAMON, body aches, flu like sxs recently. Pt is a smoker. PMHx of Afib, HTN, HLD, sleep apnea. Patient states that he is actually been weak and dyspneic almost since the ablation procedure. States she has not been able to his normal work activities because of dyspnea. He is having some sharp type pain in the left chest which appears to be chest wall in nature. Seen in emergency room view of history admitted for further evaluation therapy. Hospital course-patient admitted hospital lab and x-ray studies obtained. Initial chest x-ray was unremarkable. CT scan was nonspecific. Cardiac echo revealed a ejection fracture of 60% with a mildly dilated atrium. He remained in normal sinus rhythm. Repeat chest x-ray revealed a possible left perihilar and basilar pneumonia also patient had no cough and lung mathew are clear to auscultation. Patient has remained weak but is improved at present. His main complaint is pain chest wall pain. This is improved at present. Patient is overall much improved at time of discharge. He has cough congestion fever or other complaints. Still has some slight chest wall pain with certain activity that otherwise is asymptomatic. He denies any cough or shortness of breath. His lung mathew are clear to auscultation. Slight tenderness over the costochondral junction mid thoracic region bilaterally. Will discharge patient to home care and continue present medications. We will plan to recheck in the office in 1 week or sooner as needed. We will follow-up chest x-ray at that time also patient clinically has clear lung mathew and no cough. Patient call or come to the emergency room condition worsens or new problems develop. Diagnosis - Discharge Diagnosis (1) Fever Status: Acute (2) Left perihilar and basilar pneumonia Status: Acute (3) Anterior chest wall pain Status: Acute (4) History of atrial fibrillation Status: Chronic (5) Dyslipidemia Status: Chronic (6) Hypertension Status: Chronic (7) Sleep apnea Status: Chronic Discharge Plan - Discharge Data Disposition: Disch To Home/Self Care Condition at Discharge: Stable Discharge Diet: advance to your usual diet Activity: resume usual activities as tolerated Hygiene: no restrictions Weight Bearing at Discharge: full weight bearing Driving: no restrictions Contact your physician if you experience:: fever over 101, Shortness of breath - Discharge Medications New Azithromycin Tab [Zithromax Tab] 250 mg PO DAILY #10 tablet Diclofenac 1% Gel [Voltaren 1% Gel] 1 applic TOP QID #1 applic methylPREDNISolone TAB [Medrol] 8 mg PO .DOSEPAK ENTER TAPER #1 tablet Continue Multivit-Min/FA/Lycopen/Lutein [Centrum Silver Tablet] 1 each PO QAM Nabumetone [Relafen] 500 mg PO BID W/MEALS Ibuprofen 400 mg PO Q6H PRN #30 tablet PRN Reason: Chest Pain Apixaban [Eliquis] 5 mg PO BID #60 Omeprazole Magnesium [Prilosec Otc] 20 mg PO QAM #60 Ezetimibe [Zetia] 10 mg PO QAM Acetaminophen [Acetaminophen ER Tab] 1,300 mg PO QAM - Follow Up or Referral - Forms/Instructions Exam - Constitutional Vitals: Period Temp Pulse Resp BP Sys/Parker Pulse Ox Last 24 Hr 98.2 F-99.1 F 60-93 15-21 125-154/63-74 93-100 General appearance: mild distress - Head Head exam: Present: normal inspection - Eye Pupils: Present: AUNDREA - ENT ENT exam: Present: normal exam - Neck Neck exam: Present: normal inspection - Cardiovascular Cardiovascular exam: Present: regular rate and rhythm - GI/Abdominal GI/Abdominal exam: Present: normal bowel sounds, soft - Extremities Exam Extremities exam: Present: normal inspection - Back Exam Back exam: Present: normal inspection - Neurological Exam Neurological exam: Present: alert, oriented X3 - Psychiatric Psychiatric exam: Present: normal affect - Skin Skin exam: Present: normal color Discharge Results Labs on day of discharge: Labs from last 24 hours 04/14/17 04/14/17 05:10 05:10 WBC 16.1 H D RBC 3.97 Hgb 12.4 L Hct 36.8 L MCV 92.7 MCH 31 MCHC 33.7 RDW 12.6 Plt Count 343 MPV 10.4 Neut % (Auto) 87.2 H Lymph % (Auto) 8.3 L [place] % (Auto) 3.5 Eos % (Auto) 0.0 Baso % (Auto) 0.1 Neut # (Auto) 14.0 H Lymph # (Auto) 1.3 L [place] # (Auto) 0.6 Eos # (Auto) 0.0 Baso # (Auto) 0.0 Immature Gran % 0.9 Nucleated RBC % 0.0 Immature Gran # 0.15 Nucleated RBCs # 0.00 Sodium 141 Potassium 4.5 Chloride 106 Carbon Dioxide 27 Anion Gap 12.5 BUN 13 Creatinine 0.90 GFR Calculation 124 BUN/Creatinine Ratio 14.00 Glucose 136 H Calculated Osmolality 282.3 Calcium 9.5 Magnesium 2.2 DS: Provider Date of admission: 04/10/17 01:02 Primary care physician: . No PCP Attending physician on admission: Mitesh Morris DO Discharging clinician: Mitesh Morris DO
[2017-04-14] MEDS: MULTIVITAMIN (CENTRUM) TABLET PO SCH (08:22)
[2017-04-14] MEDS: DOCUSATE SODIUM 100 MG CAPSULE PO SCH (08:22)
[2017-04-14] MEDS: EZETIMIBE 10 MG TABLET PO SCH (08:22)
[2017-04-14] MEDS: PANTOPRAZOLE 40 MG TABLET PO SCH (08:23)
[2017-04-14] MEDS: APIXABAN 5 MG TABLET PO SCH (08:23)
[2017-04-14] MEDS ORDERED: methylPREDNISolone 4 MG TABLET PO SCH (08:30)
[2017-04-14 09:00] VITALS: BP 121/70
[2017-04-14] MEDS ORDERED: DICLOFENAC 1% GEL 100 GM TUBE TOP SCH (09:00)
[2017-04-14] MEDS ORDERED: AZITHROMYCIN 250 MG TABLET PO SCH (09:00)
== END 2017-04-14 10:08 | disposition home or self-care (01) | DRG 195 ==
LOC: N.ED 21:58 → N.EDINP 04-10 01:02 → N.2E 04-10 01:47
PROVIDERS: ADMIT Family Medicine; ATTEND Family Medicine

== ENCOUNTER 2017-04-23 14:39 | Observation (INO) ==
[2017-04-23] MEDS ORDERED: ACETAMINOPHEN 325 MG TABLET PO PRN (16:28)
[2017-04-23] MEDS ORDERED: MORPHINE 2 MG/1 ML SYRINGE IV PRN (16:28)
[2017-04-23] MEDS ORDERED: MAGNESIUM SULF RIDER 4 GM in PREMIX 1 EACH IV PRN (16:28)
[2017-04-23] MEDS ORDERED: ONDANSETRON 4 MG/2 ML VIAL IV PRN (16:28)
[2017-04-23] MEDS ORDERED: BISACODYL 5 MG TABLET PO PRN (16:28)
[2017-04-23] MEDS ORDERED: MAGNESIUM SULF RIDER 2 GM in PREMIX 1 EACH IV PRN ×2 (16:28→16:47)
[2017-04-23] MEDS ORDERED: DOCUSATE SODIUM 100 MG CAPSULE PO PRN (16:28)
[2017-04-23] MEDS ORDERED: POTASSIUM CHLORIDE RIDER 10 MEQ in PREMIX 1 EACH IV PRN (16:47)
[2017-04-23] MEDS ORDERED: diphenhydrAMINE CAP 25 MG CAPSULE PO ONE (16:47)
[2017-04-23] MEDS ORDERED: DIAZEPAM 5 MG TABLET PO ONE (16:47)
--- NOTE | 2017-04-23 17:00 | Event Note ---
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 MARTINEZ Was directly admitted from cardiology clinic today by Dr. Shipley for evaluation of chest pain and worsening shortness of breath. He spoke with Dr. Allie Martinez and patient will undergo right and left cardiac catheterization during this hospitalization. His last dose of Eliquis was this morning at 0900. PFTs have been ordered. CT chest last evening revealed no significant abnormality. Dr. Bhatia personally reviewed reviewed the CT and there was no pulmonary vein fistula noted. ESR and CRP will be checked this evening as he may have post-pericardiotomy syndrome and may need additional workup and treatment. Patient is currently planned for n.p.o. after midnight tonight for right and left heart catheterization to be performed Dr. Allie Martinez in the morning at 0900.
[2017-04-23 17:13] LABS: Basophils % 0.1 % (0.0-0.8); Eosinophils # 0.1 10*3/uL (0.0-0.87); Hematocrit 35.9 VOL% (42.0-52.0); Hemoglobin 12.1 GM/DL (14.0-18.0); Immature Granulocytes % 0.3 %; Immature Granulocytes Absolute 0.02 #; Lymphocytes # 2.6 10*3/uL (1.4-4.0); Lymphocytes % 36.5 % (21.2-54.2); Mean Corpuscular HGB Conc 33.7 GM/DL (32-36); Mean Corpuscular Hemoglobin 31 PG (27-34); Mean Platelet Volume 10.1 FL (9.6-12.0); Monocytes # 0.6 10*3/uL (0.11-0.8); Monocytes % 8.2 % (1.7-12.7); Neutrophils # 3.7 10*3/uL (1.4-7.4); Neutrophils % 52.9 % (38.7-73.9); Platelet Count 305 T/CUMM (130-400); Red Blood Count 3.86 MC/CUMM (3.8-5.5); Red Cell Distribution Width 13.1 % (9.3-17.3)
[2017-04-23] MEDS: DICLOFENAC 1% GEL 100 GM TUBE TOP SCH ×2 (17:16→21:08)
--- NOTE | 2017-04-23 17:16 | Electrophysiology Consultation ---
History of Present Illness - Data of Consult Patient: new to practice Consult date: 04/23/17 Requesting Physician: Alayna Miles - Consult Narrative Reason for consult: SOB History of present illness: Mr. Madison is a 57 year old male with history of obesity, highly symptomatic, drug refractory paroxysmal atrial fibrillation, for which she underwent pulmonary vein isolation 2 months ago. There is no symptomatic recurrence of the arrhythmia since. He felt good for a week after the ablation, then developed shortness of breath. Mild, nonproductive cough. Transiently, he has some fever. This is gotten progressively worse. He was hospitalized 2 weeks ago, for shortness of breath, occasional chest pain CT scan did not show PE, significant pericardial effusion, or atrial esophageal fistula. There were some enlarged mediastinal lymph nodes. He was treated for pneumonia and discharged home. His symptoms are not getting better, he did not have fever but not the shortness of breath to the point, when he finds it hard to speak in full sentences. There is no orthopnea lower extremity swelling palpitations. He also had some chest pain. One of his prior CTs, coronary calcification was suspected. On his prior admission, elevated ESR was found. I personally reviewed the CT scan with the radiologist today. There is no atrial esophageal fistula and there is no pulmonary vein stenosis. There is trace pericardial effusion. There is no pulmonary embolus. No significant pulmonary infiltrates or effusion. CC: Allie Martinez, - Home Medications and Allergies Home Medications: Home Medications Medication Instructions Recorded Confirmed Type Ezetimibe [Zetia] 10 mg PO QAM 01/13/17 04/23/17 History Acetaminophen [Acetaminophen ER 1,300 mg PO QAM 01/29/17 04/23/17 History Tab] Multivit-Min/FA/Lycopen/Lutein 1 each PO QAM 01/29/17 04/23/17 History [Centrum Silver Tablet] Nabumetone [Relafen] 500 mg PO BID W/MEALS 01/29/17 04/23/17 History Apixaban [Eliquis] 5 mg PO BID #60 02/25/17 04/23/17 Rx Ibuprofen 400 mg PO Q6H PRN #30 tablet 02/25/17 04/23/17 Rx Omeprazole Magnesium [Prilosec Otc] 20 mg PO QAM #60 02/25/17 04/23/17 Rx Azithromycin Tab [Zithromax Tab] 250 mg PO DAILY #10 tablet 04/14/17 04/23/17 Rx Diclofenac 1% Gel [Voltaren 1% Gel] 1 applic TOP QID #1 applic 04/14/17 Rx Allergies/Adverse Reactions: Allergies Allergy/AdvReac Type Severity Reaction Status Date / Time No Known Allergies Allergy Verified 02/24/17 06:13 Medical,Surgical,& Family Hx - Medical History Cardio: History of: Cardiac Dysrhythmia (A-fib), Hypertension No history of: CHF, CAD, CO, Pacemaker, PVD, Valvular Heart Disease Psychological: No history of: Anxiety Disorders, ADHD, Behavior Problems, Bipolar Disorder, Depression, Previous Suicide Attempt, Psychiatric/Substance Abuse Tx, Schizophrenia, Violent Behavior, Psychiatric Problems Neurology: No history of: Seizures HEENT: History of: Ear Problem ([employer] bilateral hearing aides), Eye Problem ( contacts/reading glasses), HEENT Problems No history of: Glaucoma, Oral Cancer Endocrine: History of: Dyslipidemia No history of: Adrenal Disease, Diabetes Mellitus (IDDM), Diabetes Mellitus ( NIDDM), Thyroid Disorder, Endocrine Cancer, Endocrine Problems Respiratory: History of: Obstructive Sleep Apnea (Bipap), Pneumonia No history of: Pulmonary Hypertension Gastrointestinal: History of: GERD Musculoskeletal: History of: Degenerative Disk Disease No history of: Amputation Hematology: No history of: Anemia, Bleeding Problems, Clotting Problems, Sickle Cell Disease, Hematologic Cancer, Blood Disorders - Surgical History Cardiac Surgeries: Sugical HX of: Cardiac Surgery (ablation) Patient Denies: Cardiac Catheterization Thoracic Surgeries: Patient denies;: Organ Transplant, Lobectomy Neurologic Surgeries: Patient denies: Neurologic Surgery HEENT Surgeries: Surgical HX of: Tonsilectomy & Adenoidectomy Patient denies: Eye Surgery, Thyroid Surgery Abdominal Surgeries: Patient denies: Abdominal Surgery, Appendectomy, Cholecystectomy Reproductive Surgeries: Patient denies;: Breast Surgery, Genitourinary Surgery, Vasectomy Orthopedic Surgeries: Patient denies;: Implanted Devices, Orthopedic Surgery, Spinal Surgery, Total Hip Replacement, Total Knee Replacement - Family History Family History: Reports;: Family Cancer (Mother: ovarian CA), Family Heart Disease (Father: ablation, bypass, pacemaker) Denies;: Family Anesthesia Reaction, Family Hypertension, Family Psychiatric Problems, Family Stroke - Social History Smoking Status: Current every day smoker Frequency of Alcohol Use: None Type of Drug Use: None point system: reviewed and no additional remarkable complaints except as stated Exam - Constitutional Vitals: Period Temp Pulse Resp BP Sys/Parker Pulse Ox Last 24 Hr 97.7 F 69 20 118/69 95 General appearance: normal weight, no acute distress - Head Head exam: Present: normal inspection, normocephalic - Eye Eye exam: Absent: conjunctival injection Pupils: Absent: dilated - ENT ENT exam: Present: normal external ear exam - Neck Neck exam: Present: normal inspection - Respiratory Respiratory exam: Present: clear to auscultation bilaterally - Cardiovascular Cardiovascular exam: Present: regular rate and rhythm - GI/Abdominal GI/Abdominal exam: Present: normal bowel sounds - Extremities Exam Extremities exam: Present: normal inspection, normal capillary refill. Absent: edema - Back Exam Back exam: Present: normal inspection - Neurological Exam Neurological exam: Present: alert, oriented X3 - Psychiatric Psychiatric exam: Present: normal affect, normal mood - Skin Skin exam: Present: normal color, warm. Absent: cyanosis Results - Labs CBC & BMP: 04/23/17 16:49 Lab Results: I have reviewed the past 24 hour labs Assessment and Plan (1) S/P ablation of atrial fibrillation Status: Chronic Assessment and plan: 57-year-old male, status post ablation for atrial fibrillation, with persistent shortness of breath, that started after the ablation. Hypertension hyperlipidemia, past smoker, obstructive sleep apnea. Findings suggestive of postcardiac injury syndrome. -Recheck inflammatory markers. -Okay to hold the Eliquis for the planned cardiac catheterization tomorrow. -Unless other etiology established, I recommend to start colchicine and high- dose ibuprofen for the postcardiac injury syndrome. -Resume Eliquis after the cardiac catheterization. He will be a candidate for ILR guided anticoagulation 3 months after the ablation. -He quit smoking -Cont intensive risk factor modification to prevent further atrial remodeling. BP control, CPAP for VANESSA. Current Visit: No (2) Hypertension Status: Chronic Current Visit: No Qualifiers: Hypertension type: essential hypertension Qualified Code(s): I10 - Essential (primary) hypertension (3) Atrial fibrillation with rapid ventricular response Status: Resolved Current Visit: No (4) Sleep apnea Status: Chronic Current Visit: No Qualifiers: Sleep apnea type: obstructive Qualified Code(s): G47.33 - Obstructive sleep apnea (adult) (pediatric) (5) Hypertension Status: Chronic Current Visit: No Quality Measures - Stroke Symptom Onset Unknown: No
[2017-04-23] MEDS: SODIUM CHLORIDE 0.45% 1,000 ML IV SCH (17:18)
[2017-04-23] MEDS: NABUMETONE 500 MG TABLET PO SCH (17:18)
--- NOTE | 2017-04-23 17:23 | XRay Report ---
XR chest 1V portable Indication: Shortness of breath Comparison: Chest x-ray 04/22/2017 Technique: Portable AP chest was performed. Findings: The heart size appears within normal limits. Pulmonary vasculature demonstrates no specific abnormality. Hilar structures demonstrate fairly symmetric appearance. The lungs appear clear. Bones and soft tissues demonstrate no evidence of acute pathology. Impression: 1. No evidence of acute pathology. 04/23/2017 5:19 PM PROCEDURE INTERPRETED AT [facility] DEPARTMENT OF RADIOLOGY Final Report Signed by: Dr. Kj Moore
[2017-04-23 17:39] LABS: Troponin I Only < 0.015 NG/ML (0.00-0.045)
[2017-04-23 17:45] LABS: Albumin 3.3 G/DL (3.4-5.0); Bilirubin,Total 0.4 MG/DL (0.2-1.0); Calcium 8.4 MG/DL (8.5-10.1); Osmolality,Calculated 275.5 MOS/KG (273-304); Potassium 4.2 MMOL/L (3.5-5.1); Thyroid Stimulating Hormone 1.14 uIU/ml (0.358-3.74); Total Protein 6.2 G/DL (6.4-8.3)
--- NOTE | 2017-04-23 21:33 | History and Physical Update ---
Sedation H&P Update - History and Physical H&P was reviewed, the patient examined and there: are no changes in the patients condition since last H&P was completed. - Dictation Physical: refer to scanned H&P - Physical Exam Mental Status: alert and oriented Heart: regular rate and rhythm Lung: clear to auscultation Abdomen: within normal limits Vitals: within normal limits - Sedation Plan for Sedation: moderate Patient Consent: Procedure disscussed with patient and patinet has consented., Risks and benefits were discussed with patient,including infection,, bleeding, injury to surrounding structures, seizure, temporary nerve, Patient understands and accepts potential risks/benefits and agrees to, proceed. ASA Class: IV Airway Assessment: Class I: Soft palate, uvula, fauces, pillars visible
[2017-04-24 01:46] LABS: Basophils % 0.4 % (0.0-0.8); Eosinophils # 0.2 10*3/uL (0.0-0.87); Eosinophils % 2.4 % (0.00-10.9); Hematocrit 36.5 VOL% (42.0-52.0); Hemoglobin 12.4 GM/DL (14.0-18.0); Immature Granulocytes % 0.4 %; Immature Granulocytes Absolute 0.03 #; Lymphocytes # 3.3 10*3/uL (1.4-4.0); Lymphocytes % 42.5 % (21.2-54.2); Mean Corpuscular Hemoglobin 31 PG (27-34); Mean Corpuscular Volume 92.2 FL (87-102); Mean Platelet Volume 9.5 FL (9.6-12.0); Monocytes # 0.6 10*3/uL (0.11-0.8); Monocytes % 7.5 % (1.7-12.7); Neutrophils # 3.7 10*3/uL (1.4-7.4); Neutrophils % 46.8 % (38.7-73.9); Platelet Count 277 T/CUMM (130-400); Red Blood Count 3.96 MC/CUMM (3.8-5.5); Red Cell Distribution Width 12.8 % (9.3-17.3); White Blood Count 7.8 T/CUMM (4-12)
[2017-04-24] MEDS ORDERED: DIAZEPAM 5 MG TABLET PO ONE (06:00)
[2017-04-24] MEDS ORDERED: diphenhydrAMINE CAP 25 MG CAPSULE PO ONE (06:00)
[2017-04-24 06:34] LABS: Alanine Aminotransferase 37 U/L (16-61); Albumin 3.1 G/DL (3.4-5.0); Alkaline Phosphatase 68 U/L (45-117); Aspartate Amino Transferase 12 U/L (0-37); Bilirubin,Total < 0.39 MG/DL (0.2-1.0); Blood Urea Nitrogen 12 MG/DL (7-18); Calcium 8.3 MG/DL (8.5-10.1); Cholesterol 211 MG/DL (50-200); Glucose 104 MG/DL (74-106); HDL Cholesterol 51 MG/DL (40-60); Osmolality,Calculated 276.5 MOS/KG (273-304); Risk Ratio 4.14; Sodium 139 MMOL/L (136-145); Total Protein 5.9 G/DL (6.4-8.3); Triglycerides 379 MG/DL (2-150); Troponin I Only < 0.015 NG/ML (0.00-0.045); VLDL CHOLESTEROL 75.8 MG/DL
[2017-04-24] MEDS ORDERED: LIDOCAINE 1% 20 ML VIAL ONE (07:23)
[2017-04-24] MEDS ORDERED: SODIUM BICARBONATE 2.4 MEQ/5 ML VIAL ONE (07:23)
[2017-04-24] MEDS ORDERED: HEPARIN/NACL 0.9% 2 UNITS/ML 1,000 ML IV ONE (07:23)
--- NOTE | 2017-04-24 07:24 | EKG Report ---
Stationary ECG Study [facility] Test Date: 04/24/2017 1:49:14 AM Pat Name: MOUNIKA DIAZ Department: Room: 245 Gender: M Director Online Marketing: LEDY : 1960 Requested by: Alayna Lester Order Number: [id number] Reading MD: PATRICA HIGHTOWER Intervals [place] Rate: 57 P: 55 MN: 175 QRS: 76 QRSD: 103 T: 77 QT: 405 QTc: 399 Interpretive Statements SINUS RHYTHM Electronically Signed On 04-25-17 22:37:01 CDT by PATRICA HIGHTOWER [email or web address]
--- NOTE | 2017-04-24 07:31 | EKG Report ---
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
[2017-04-24] MEDS ORDERED: MIDAZOLAM 2 MG/2 ML VIAL ONE ×2 (08:39→11:17)
[2017-04-24] MEDS ORDERED: fentaNYL 100 MCG/2 ML VIAL ONE ×2 (08:41→11:18)
[2017-04-24] MEDS ORDERED: HEPARIN/NACL 0.9% 2 UNITS/ML 500 ML IV ONE ×2 (08:43→11:17)
[2017-04-24] MEDS ORDERED: NON-FORMULARY MEDICATION (Omeprazole Magnesium [Prilosec Otc] 20 MG) PO SCH (09:00)
[2017-04-24] MEDS ORDERED: BIVALIRUDIN 250 MG VIAL IV ONE (11:58)
[2017-04-24] MEDS ORDERED: ADENOSINE 6 MG/2 ML VIAL ONE (11:58)
--- NOTE | 2017-04-24 12:23 | Electrophysiology Progress Not ---
Assessment and Plan (1) S/P ablation of atrial fibrillation Status: Chronic Assessment and plan: 57-year-old male, status post ablation for atrial fibrillation, with persistent shortness of breath, that started after the ablation. Hypertension hyperlipidemia, past smoker, obstructive sleep apnea. Findings suggestive of postcardiac injury syndrome. -If cardiac catheterization is not suggestive of severe CAD, I recommend to start colchicine and high-dose ibuprofen for the postcardiac injury syndrome. -Resume Eliquis after the cardiac catheterization. He will be a candidate for ILR guided anticoagulation 3 months after the ablation. -Cont intensive risk factor modification to prevent further atrial remodeling. BP control, CPAP for VANESSA. Current Visit: No (2) Hypertension Status: Chronic Current Visit: No Qualifiers: Hypertension type: essential hypertension Qualified Code(s): I10 - Essential (primary) hypertension (3) Atrial fibrillation with rapid ventricular response Status: Resolved Current Visit: No (4) Sleep apnea Status: Chronic Current Visit: No Qualifiers: Sleep apnea type: obstructive Qualified Code(s): G47.33 - Obstructive sleep apnea (adult) (pediatric) (5) Hypertension Status: Chronic Current Visit: No Electrophysiology Subjective Interval history: He is feeling fine. For cardiac catheterization today. Sinus rhythm and sinus bradycardia. Exam - Constitutional Vitals: Period Temp Pulse Resp BP Sys/Parker Pulse Ox Last 24 Hr 97.2 F-97.9 F 55-78 18-20 104-125/56-71 91-96 General appearance: normal weight, over weight - Head Head exam: Present: normal inspection, normocephalic - Eye Eye exam: Absent: conjunctival injection Pupils: Absent: dilated - ENT ENT exam: Present: normal external ear exam - Neck Neck exam: Present: normal inspection - Respiratory Respiratory exam: Present: clear to auscultation bilaterally - Cardiovascular Cardiovascular exam: Present: regular rate and rhythm - GI/Abdominal GI/Abdominal exam: Present: normal bowel sounds - Extremities Exam Extremities exam: Present: normal inspection, normal capillary refill. Absent: edema - Back Exam Back exam: Present: normal inspection - Neurological Exam Neurological exam: Present: alert, oriented X3 - Psychiatric Psychiatric exam: Present: normal affect, normal mood - Skin Skin exam: Present: normal color, warm. Absent: cyanosis Results - Labs CBC & BMP: 04/24/17 01:41 04/24/17 01:41 Lab Results: I have reviewed the past 24 hour labs Quality Measures - Stroke Symptom Onset Unknown: No
[2017-04-24] MEDS ORDERED: CLOPIDOGREL 300 MG TABLET ONE (12:24)
--- NOTE | 2017-04-24 13:03 | Cardiology Operative Report ---
Date of Procedure:: 04/24/17 Pre-op diagnosis: Chest pain, shortness of breath Post-op diagnosis: same Procedure: 1. Selective left and right coronary angiography. 2. Left heart catheterization with left ventriculogram. 3. Right iliac angiography to rule out vascular complications. 4. Percutaneous intervention of the proximal first obtuse marginal artery with placement of a rebel 4 x 16 mm bare-metal stent. 5. Fractional flow reserve measurement of first obtuse marginal artery. 6. Right heart catheterization Impression: 1. Severe single-vessel coronary artery disease with 50-70% angiographic stenosis of the first obtuse marginal artery, FFR 0.77. 2. Right dominant coronary arteries. 3. Ejection fraction 60 %. 4. Angiographically normal right iliac artery without evidence of vascular complications. 5. Successful PCI of the first obtuse marginal artery as described above. 6. Normal right heart pressures. Plan: 1. DAPT > 1-2 months. 2. Risk factor modification. 3. Pulmonary evaluation for episodes of shortness of breath and hypoxia. Equipment: Diagnostic 6 [place] JL4, JR4, pigtail catheters, Franklin-Shamika catheter Guiding 6 [place] EBU 3.5 catheter, PitchEngine prime wire, trek 3 x 12 mm balloon, rebel 4 x 16 mm bare-metal stent, Hemodynamics: Aortic pressure 101/98 mmHg, left ventricular pressure 120/3 mmHg, LVEDP 9 mmHg Right atrium pressure 2 mmHg, right ventricle 23/0, pulmonary artery 22/6, pulmonary capillary wedge pressure for millimeters mercury. Thermodilution cardiac output 4.3 L/min, cardiac index 1.9 [place] cardiac output 7.1, cardiac index 3.1 Sedation: Versed 2 mg, fentanyl 75 mcg Procedure: After informed consent was obtained the patient was prepped and draped in sterile fashion. The right groin was infiltrated with 1% lidocaine and the right femoral artery and vein were accessed via modified Seldinger technique using a micropuncture needle and a 6 [place] femoral venous and arterial sheaths placed. The Franklin-Shamika catheter was advanced to the venous sheath into the pulmonary artery where thermodilution measurements were acquired. Pressure measurements were obtained on catheter pullback. Attention was then turned towards left heart catheterization. All catheter exchanges were performed over a guidewire under fluoroscopic guidance. Diagnostic 6 [place] JL4 and JR4 catheters were advanced to the left and right coronary arteries respectively and multiple cineangiograms were performed in varying degrees of obliquity and angulation. Thereafter a pigtail catheter was advanced into the left ventricle where hemodynamics were obtained followed by left ventriculogram. The patient was then anticoagulated with Angiomax, in preparation for fractional flow reserve measurement. A guiding 6 [place] EBU 3.5 catheter was advanced to the left main artery. After adequate anticoagulation was confirmed with an ACT measurement, the pressure wire was advanced through the circumflex artery into the first obtuse marginal artery. The patient was administered 60 mcg of intracoronary adenosine and fractional flow reserve measurements were obtained. One severity of the stenosis was confirmed, percutaneous intevention of the obtuse marginal artery was then performed. A trek 3 x 12 mm balloon was advanced to the site of stenosis and angioplasty was performed at 8 segun. Thereafter a rebel 4 x 16 mm bare-metal stent was advanced to the site of stenosis and successfully deployed at 11 segun. Satisfactory angiographic result was obtained with appropriate stepup proximally distally, no evidence of vascular complications. Preoperatively there was 50-70% angiographic stenosis with ZOE-3 flow. Postoperatively there was 0% residual stenosis with ZOE-3 flow. At conclusion of the procedure right iliac angiography was performed to rule out vascular complications. Findings: 1. The left main artery is angiographically normal. 2. The left anterior descending artery extends to the apex. The mid to distal segment is small and tapered. 3. There is not an intermediate ramus branch. 4. The circumflex artery gives rise to one large branching marginal artery, then continues along the AV groove without significant contribution to the left ventricle. There is a shelf like a discrete lesion with a small aneurysmal segment in the proximal portion of the marginal artery with 50-70% angiographic stenosis. FFR is 0.77. 5. The right coronary artery has mild luminal irregularities without significant stenosis. It is dominant. 6. Ejection fraction is 60 % with normal anterior, inferior and apical wall motion. 7. No significant mitral regurgitation. 8. No significant aortic stenosis. 9. The right iliac artery is angiographically normal without evidence of vascular complications. Contrast use: Omnipaque 166 cc Fluoro time: 6.8 minutes Complications: none Specimens removed: none Devices implanted: stent as described above Anesthesia: moderate conscious sedation Surgeon / Physician: Allie Martinez Electronic Service Technician: none (Kimberly Lomas) Estimated blood loss: minimal Specimens: none sent Condition: stable
[2017-04-24] MEDS: SODIUM CHLORIDE 0.45% 1,000 ML IV SCH ×2 (13:42→20:57)
[2017-04-24] MEDS: DICLOFENAC 1% GEL 100 GM TUBE TOP SCH ×3 (13:42→16:14)
[2017-04-24] MEDS: NABUMETONE 500 MG TABLET PO SCH ×3 (13:43→16:19)
[2017-04-24] MEDS: EZETIMIBE 10 MG TABLET PO SCH (13:43)
[2017-04-24] MEDS: PANTOPRAZOLE 40 MG TABLET PO SCH (13:43)
--- NOTE | 2017-04-24 14:09 | EKG Report ---
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
[2017-04-24 14:49] LABS: Troponin I Only < 0.015 NG/ML (0.00-0.045)
[2017-04-24 18:19] LABS: ABG Base Excess -0.2 MMOL/L (-2.5-2.5); ABG HCO3 24.2 MMOL/L (20-26); ABG Oxygen Saturation 95.5 % (95-100); ABG PCO2 33.3 MM HG (35-48); ABG PH 7.448 (7.35-7.45); ABG PO2 73.9 MM HG (80-95); Allen Test Positive
--- NOTE | 2017-04-24 19:13 | Pulmonology Consult Note ---
History of Present Illness Chief complaint: Hypoxemia. COPD. S OB. SHEPHERD. History of present illness: Mr. Madison is a 57 year old white male whom I been asked to see in pulmonary consultation because of shortness of breath, dyspnea on exertion, hypoxemia. This patient has had symptoms of cardiac angina. He has severe dyspnea on exertion and chest pain induced by exertion which she says takes 1 hour to go away. His ability to work is been severely limited. 2 weeks ago he decided to stop smoking. He said he started smoking at age 7. Patient has had cardiac catheterization today and he ended up with a stent. He said he had cardiac angina when the stent was placed but since then he feels like he is breathing easier. He plans to get up and walk and see if this is real. His and daughter say that he is breathing better. The patient says never cough. I have not heard a wheeze and need to his anyone else. Patient denies solid dysphasia. He has gastroesophageal reflux which she says is aggravated by Relafen but is under good control with Protonix. The remainder review of systems is negative. This patient was seen along with Markie Rodriguez nurse practitioner, his , 2 daughters and several small children. Allergies. None Home medicines. See below Hospital medicines. See below Past history. Obstructive sleep apnea treated with BiPAP and followed by Dr. Janina Naik. COPD. Tobacco abuse. Degenerative joint disease. Hyperlipidemia. Atrial fib that required ablation therapy. Recent hospitalization with pneumonia after cardiac ablation. Suspect this was an aspiration pneumonia. Family history. His mother had ovarian cancer. His father had heart disease and required ablation, bypass and cardiac pacemaker. Social history. Patient started smoking while he was in the third grade. He quit smoking 2 weeks ago because he came to the emergency room with pneumonia.. The pneumonia developed after he had a cardiac ablation patient says he smoked approximately half pack of cigarettes per day. He works in the [employer] near [place]. 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 Chest x-ray. 04/23/2017. Heart size is normal. Pulmonary arteries are top normal. No hilar adenopathy. Mediastinum is normal. Lung mathew reveal some mild residual interstitial scarring versus infiltrate in the right lower lung. 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 No lateral film is available. ABGs. Room air. PH is 7.448. PCO2 is 33.3. PO2 is 73.9 bicarb is 24.2 Lab. Creatinine is 0.9. BUNs 12. Electrolytes are normal. Liver function tests are normal. Protein and albumin are low at 5.93.1 respectively. Globulin is 2.8. White count 7800 with 47 segs 42 lymphs 7 monos. H&H 12.4/ 36.5 with normal indices and normal red blood cell distribution with. Platelets are 277,000 with a mean platelet volume of 9.5. Thyroid function tests are normal. Cholesterol is 211. HDL is 51. LDL is 105. Triglycerides of 379. Labs been reviewed. Medicines been reviewed. Physical exam. Vital signs. See below Psychiatric. Oriented 3 Neurological. Cranial nerves are intact. Long track motor functions intact. Sensory exam was not done. Gait was not tested. Face. Symmetrical. No abnormalities of the lips or tongue. Neck. Symmetrical. No meningismus and no masses. Lymphatics. No submandibular cervical supraclavicular or epitrochlear adenopathy. Chest. Symmetrical. Mild prolongation of expiration. No wheezes. Heart. No gallop Abdomen. Nontender. No organs were palpated. Bowel sounds are present and rectal. Deferred Extremities no clubbing no edema no evidence of deep venous thrombophlebitis. The remainder the physical exam was negative. Impression. 1. Hypoxemia. Most likely related to emphysema 2. COPD. Severity has not been measured. No wheeze. No cough. No sputum production 3. Arteriosclerotic heart disease. Stent placed today 4. Severe dyspnea on exertion with associated chest pain. Probably related to heart disease and complicated by emphysema and COPD. 5. Gastroesophageal reflux disease. 6. Recent ablation therapy 7. Recent hospitalization with pneumonia following ablation therapy. Suspect there is a component of aspiration. 8. Obstructive sleep apnea. Under the care of Dr. Naik. Uses BiPAP. 9. Degenerative joint disease requiring nonsteroidal anti-inflammatories 10. See past history Plan. 1. I agree with your orders. 2. I agree with pulmonary function test pre-and postbronchodilator spirometry. Understanding these will be done tomorrow. 3. Have talked to the patient about the fact that he should avoid cigarettes. 4. Repeat E PA and lateral chest. 5. See orders Home Medications Medication Instructions Recorded Confirmed Type Ezetimibe [Zetia] 10 mg PO QAM 01/13/17 04/23/17 History Acetaminophen [Acetaminophen ER 1,300 mg PO QAM 01/29/17 04/23/17 History Tab] Multivit-Min/FA/Lycopen/Lutein 1 each PO QAM 01/29/17 04/23/17 History [Centrum Silver Tablet] Nabumetone [Relafen] 500 mg PO BID W/MEALS 01/29/17 04/23/17 History Apixaban [Eliquis] 5 mg PO BID #60 02/25/17 04/23/17 Rx Ibuprofen 400 mg PO Q6H PRN #30 tablet 02/25/17 04/23/17 Rx Omeprazole Magnesium [Prilosec Otc] 20 mg PO QAM #60 02/25/17 04/23/17 Rx Azithromycin Tab [Zithromax Tab] 250 mg PO DAILY #10 tablet 04/14/17 04/23/17 Rx Diclofenac 1% Gel [Voltaren 1% Gel] 1 applic TOP QID #1 applic 04/14/17 Rx Allergies Allergy/AdvReac Type Severity Reaction Status Date / Time No Known Allergies Allergy Verified 02/24/17 06:13 Exam (Pulmonay) H&P - Constitutional Vitals: Period Temp Pulse Resp BP Sys/Parker Pulse Ox Last 24 Hr 97 F-97.9 F 55-78 18-18 104-136/56-72 91-98 Medical,Surgical,& Family Hx - Medical History Cardio: History of: Cardiac Dysrhythmia (A-fib), Hypertension No history of: CHF, CAD, IA, Pacemaker, PVD, Valvular Heart Disease Psychological: No history of: Anxiety Disorders, ADHD, Behavior Problems, Bipolar Disorder, Depression, Previous Suicide Attempt, Psychiatric/Substance Abuse Tx, Schizophrenia, Violent Behavior, Psychiatric Problems Neurology: No history of: Seizures HEENT: History of: Ear Problem (AMBLER bilateral hearing aides), Eye Problem ( contacts/reading glasses), HEENT Problems No history of: Glaucoma, Oral Cancer Endocrine: History of: Dyslipidemia No history of: Adrenal Disease, Diabetes Mellitus (IDDM), Diabetes Mellitus ( NIDDM), Thyroid Disorder, Endocrine Cancer, Endocrine Problems Respiratory: History of: Obstructive Sleep Apnea (Bipap), Pneumonia No history of: Pulmonary Hypertension Gastrointestinal: History of: GERD Musculoskeletal: History of: Degenerative Disk Disease No history of: Amputation Hematology: No history of: Anemia, Bleeding Problems, Clotting Problems, Sickle Cell Disease, Hematologic Cancer, Blood Disorders - Surgical History Cardiac Surgeries: Sugical HX of: Cardiac Surgery (ablation) Patient Denies: Cardiac Catheterization Thoracic Surgeries: Patient denies;: Organ Transplant, Lobectomy Neurologic Surgeries: Patient denies: Neurologic Surgery HEENT Surgeries: Surgical HX of: Tonsilectomy & Adenoidectomy Patient denies: Eye Surgery, Thyroid Surgery Abdominal Surgeries: Patient denies: Abdominal Surgery, Appendectomy, Cholecystectomy Reproductive Surgeries: Patient denies;: Breast Surgery, Genitourinary Surgery, Vasectomy Orthopedic Surgeries: Patient denies;: Implanted Devices, Orthopedic Surgery, Spinal Surgery, Total Hip Replacement, Total Knee Replacement - Family History Family History: Reports;: Family Cancer (Mother: ovarian CA), Family Heart Disease (Father: ablation, bypass, pacemaker) Denies;: Family Anesthesia Reaction, Family Hypertension, Family Psychiatric Problems, Family Stroke - Social History Smoking Status: Current every day smoker Frequency of Alcohol Use: None Type of Drug Use: None Results - Labs CBC & BMP: 04/24/17 01:41 04/24/17 01:41 Quality Measures - Stroke Symptom Onset Unknown: No Specialty Discharge - Follow Up or Referrals
[2017-04-24] MEDS: ATORVASTATIN 40 MG TABLET PO SCH (20:57)
[2017-04-25] MEDS: DICLOFENAC 1% GEL 100 GM TUBE TOP SCH ×5 (00:53→20:59)
[2017-04-25] MEDS: ENOXAPARIN 40 MG/0.4 ML SYRINGE SUBCUT SCH (06:10)
[2017-04-25 06:23] LABS: Basophils % 0.4 % (0.0-0.8); Eosinophils # 0.2 10*3/uL (0.0-0.87); Eosinophils % 2.4 % (0.00-10.9); Hematocrit 38.2 VOL% (42.0-52.0); Hemoglobin 12.9 GM/DL (14.0-18.0); Immature Granulocytes % 0.4 %; Immature Granulocytes Absolute 0.03 #; Lymphocytes # 2.9 10*3/uL (1.4-4.0); Lymphocytes % 35.3 % (21.2-54.2); Mean Corpuscular HGB Conc 33.8 GM/DL (32-36); Mean Corpuscular Hemoglobin 31 PG (27-34); Mean Corpuscular Volume 91.6 FL (87-102); Mean Platelet Volume 9.8 FL (9.6-12.0); Monocytes # 0.6 10*3/uL (0.11-0.8); Monocytes % 7.7 % (1.7-12.7); Neutrophils # 4.5 10*3/uL (1.4-7.4); Neutrophils % 53.8 % (38.7-73.9); Platelet Count 296 T/CUMM (130-400); Red Blood Count 4.17 MC/CUMM (3.8-5.5); Red Cell Distribution Width 12.9 % (9.3-17.3); White Blood Count 8.3 T/CUMM (4-12)
[2017-04-25 07:03] LABS: Calcium 9.1 MG/DL (8.5-10.1); Osmolality,Calculated 277.5 MOS/KG (273-304); Potassium 3.9 MMOL/L (3.5-5.1)
--- NOTE | 2017-04-25 07:51 | EKG Report ---
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
--- NOTE | 2017-04-25 07:53 | XRay Report ---
Exam: Chest 2 views Date: April 25, 2017 at 7:03 AM Comparison: Chest one view portable April 23, 2017 Reason: Shortness of breath, hypoxia Findings: The cardiac silhouette is normal in size. There may be venous congestion. However, no focal consolidation, pneumothorax or pleural effusion is identified. No acute osseous process is seen. Impression: Possible venous congestion. PROCEDURE INTERPRETED AT [facility] DEPARTMENT OF RADIOLOGY Final Report Signed by: Dr. Dora Marte
[2017-04-25] MEDS: PANTOPRAZOLE 40 MG TABLET PO SCH (09:22)
[2017-04-25] MEDS: NABUMETONE 500 MG TABLET PO SCH ×2 (09:22→17:12)
[2017-04-25] MEDS: ASPIRIN 325 MG TABLET PO SCH (09:22)
[2017-04-25] MEDS: CLOPIDOGREL 75 MG TABLET PO SCH (09:22)
[2017-04-25] MEDS: EZETIMIBE 10 MG TABLET PO SCH (09:22)
[2017-04-25] MEDS: SODIUM CHLORIDE 0.45% 1,000 ML IV SCH (10:05)
--- NOTE | 2017-04-25 10:40 | Pulmonology Progress Note ---
Pulmonary - PN: Subj Interval history: Is a 57-year-old white male whom I saw in pulmonary consultation on 04/24/2017. My impressions were. 1. Hypoxemia. Most likely related to emphysema 2. COPD. Severity has not been measured. No wheeze. No cough. No sputum production 3. Arteriosclerotic heart disease. Stent placed today 4. Severe dyspnea on exertion with associated chest pain. Probably related to heart disease and complicated by emphysema and COPD. 5. Gastroesophageal reflux disease. 6. Recent ablation therapy 7. Recent hospitalization with pneumonia following ablation therapy. Suspect there is a component of aspiration. 8. Obstructive sleep apnea. Under the care of Dr. Naik. Uses BiPAP. 9. Degenerative joint disease requiring nonsteroidal anti-inflammatories 10. See past history 04/25/2017. This patient was seen along with his daughter today. He still has some shortness of breath but it is a lot better. Chest x-ray shows heart is top normal in size. There are scattered benign calcifications of both hilar areas. Pulmonary arteries appear to be top normal. Mediastinum is normal. Lung mathew are clear with no masses infiltrates or pulmonary edema. I see no bony abnormalities. Pulmonary function test. 04/25/2017. 1. No obstructive disease. 2. Small positive response to inhaled bronchodilators. 3. No restrictive disease 4. Mild diffusion defect. 5. Mild decrease in maximum voluntary ventilation. Patient's maximum voluntary ventilation is 120 L/min which is about 20 times above his baseline. This is 77% of predicted. All of these tests are discussed with the patient. We have talked to Dr. Janina Naik about his PO2 of 73.9. His says he stops breathing at night. O2 saturation will be harmful to his heart disease. We will have to get a overnight pulse oximetry while on BiPAP in order to justify this for his insurance. The patient asked me if he could have a prescription for Chantix. I discussed this with him potential adverse effects and I wrote a prescription for him and gave it to his daughter to keep I had a very allie discussion with the patient about the need to stop smoking. This was done yesterday and today and each time family members have been present. Physical exam. Vital signs see below Psychiatric oriented 3 Neurologic. Cranial nerves long tract motor function and gait are normal. Chest. Mild prolongation of expiration Heart. No gallop Abdomen. Nondistended nontender positive bowel sounds Extremities. No edema Neck. Symmetrical. No meningismus. Thyroid was not palpated Lymphatics. No submandibular cervical supraclavicular or epitrochlear adenopathy. Face. Symmetrical. Lips and tongue are normal. The remainder the physical exam is noncontributory. Recommendations. 1. Stop smoking. 2. Chantix at patient's request. 3. O2 monitoring overnight while on BiPAP. Patient needs 2 L/min nasal oxygen at night. 4. Patient's lungs are not the cause of his shortness of breath. I have discussed this with him and and his family 5. I will sign off. Please reconsult as needed. Exam (Progress Note) - Constitutional Vitals: Period Temp Pulse Resp BP Sys/Parker Pulse Ox Last 24 Hr 97 F-98.5 F 63-75 16-18 113-136/62-75 93-98 Results - Labs CBC & BMP: 04/25/17 05:57 04/25/17 05:57 Specialty Discharge - Follow Up or Referrals
--- NOTE | 2017-04-25 14:06 | History and Physical Update ---
Sedation H&P Update - History and Physical H&P was reviewed, the patient examined and there: are no changes in the patients condition since last H&P was completed. - Dictation Physical: refer to H&P completed by admitting physician - Physical Exam Mental Status: alert and oriented Heart: regular rate and rhythm Lung: clear to auscultation Abdomen: within normal limits Vitals: within normal limits - Sedation Plan for Sedation: other (none) Patient Consent: Procedure disscussed with patient and patinet has consented., Risks and benefits were discussed with patient,including infection,, bleeding, injury to surrounding structures, seizure, temporary nerve, Patient understands and accepts potential risks/benefits and agrees to ASA Class: III Airway Assessment: Class III: Soft palate, base of uvula visible
[2017-04-25] MEDS ORDERED: LIDOCAINE 1% 20 ML VIAL ONE (14:19)
[2017-04-25] MEDS ORDERED: LIDOCAINE 1%/EPI INJ 20 ML VIAL ONE (14:27)
--- NOTE | 2017-04-25 14:48 | Electrophysiology Report ---
Date of Procedure:: 04/25/17 Pre-op diagnosis: AF Post-op diagnosis: same Procedure: PROCEDURAL SUMMARY ILR implant. Successful procedure, no complications. DIAGNOSES AF s/p PVI CAD s/p CX PCI A timeout was performed. The patient was continuously monitored by electrocardiography, pulse oximetry and NIBP. Antibiotic prophylaxis Iv. Ancef was used prior to the procedure. PROCEDURE The left parasternal area was meticulously prepared with ChloroPrep surgical scrub. Sterile draping was applied and Ioban was used to cover the operation site. After infiltration with 1% lidocaine+epinephrine, an incision was made in the left parasternal area with the blade of the ILR kit. The ILR was injected into the subcutaneous tissue using the implant tool. The sensed signal was 0.21 mV. Good hemostasis was noted. The wound was closed using 4-0 Monocryl and a layer of SteriStrips. A sterile dressing was then applied. Implanted device: Medtronic LinQ Reveal SN: [id number]. Anesthesia: local Surgeon / Physician: Finn Bhatia Motor Generator Set Operator: other (Nuno) Estimated blood loss: minimal Specimens: none sent Condition: stable Disposition: floor
--- NOTE | 2017-04-25 14:51 | Cardiology Progress Note ---
Assessment and Plan (1) S/P ablation of atrial fibrillation Status: Chronic Assessment and plan: 57-year-old male, status post ablation for atrial fibrillation, with persistent shortness of breath, that started after the ablation. Hypertension hyperlipidemia, past smoker, obstructive sleep apnea. Findings suggestive of postcardiac injury syndrome. 04/25: CX PCI 04/26: ILR implant -Continue aspirin, Plavix for recent PCI. -Continue monitoring the ILR for silent A. fib. Hold off anticoagulation at this time. -Appreciate pulmonary input -Plan to discharge home tomorrow, once pulmonary workup is complete. -Cont intensive risk factor modification to prevent further atrial remodeling. BP control, CPAP for VANESSA. Current Visit: No (2) Hypertension Status: Chronic Current Visit: No Qualifiers: Hypertension type: essential hypertension Qualified Code(s): I10 - Essential (primary) hypertension (3) Atrial fibrillation with rapid ventricular response Status: Resolved Current Visit: No (4) Sleep apnea Status: Chronic Current Visit: No Qualifiers: Sleep apnea type: obstructive Qualified Code(s): G47.33 - Obstructive sleep apnea (adult) (pediatric) (5) Hypertension Status: Chronic Current Visit: No Cardiology - PN: Subj Interval history: Uneventful ILR implant today. No bleeding issues. His mild shortness of breath is unchanged. Exam (Progress Note) - Constitutional Vitals: Period Temp Pulse Resp BP Sys/Parker Pulse Ox Last 24 Hr 97 F-98.8 F 63-78 16-18 113-136/62-78 93-98 General appearance: normal weight, no acute distress - Head Head exam: Present: normal inspection - Eye Eye exam: Absent: conjunctival injection Pupils: Absent: dilated - ENT ENT exam: Present: normal external ear exam - Neck Neck exam: Present: normal inspection - Respiratory Respiratory exam: Present: clear to auscultation bilaterally - Cardiovascular Cardiovascular exam: Present: regular rate and rhythm - GI/Abdominal GI/Abdominal exam: Present: normal bowel sounds - Extremities Exam Extremities exam: Present: normal inspection, normal capillary refill - Back Exam Back exam: Present: normal inspection - Neurological Exam Neurological exam: Present: alert, oriented X3, normal gait - Psychiatric Psychiatric exam: Present: normal affect, normal mood - Skin Skin exam: Present: normal color, warm. Absent: cyanosis Result/EKG - Labs CBC & BMP: 04/25/17 05:57 04/25/17 05:57 Lab Results: I have reviewed the past 24 hour labs Labs: Laboratory Results - last 24 hr 04/24/17 04/24/17 04/25/17 13:45 18:10 05:57 WBC 8.3 RBC 4.17 Hgb 12.9 L Hct 38.2 L MCV 91.6 MCH 31 MCHC 33.8 RDW 12.9 Plt Count 296 MPV 9.8 Neut % (Auto) 53.8 Lymph % (Auto) 35.3 Mora % (Auto) 7.7 Eos % (Auto) 2.4 Baso % (Auto) 0.4 Neut # (Auto) 4.5 Lymph # (Auto) 2.9 Mora # (Auto) 0.6 Eos # (Auto) 0.2 Baso # (Auto) 0.0 Immature Gran % 0.4 Nucleated RBC % 0.0 Immature Gran # 0.03 Nucleated RBCs # 0.00 ABG pH 7.448 ABG pCO2 33.3 L ABG pO2 73.9 L ABG HCO3 24.2 ABG Total CO2 20.0 L ABG O2 Saturation 95.5 ABG Base Excess -0.2 FiO2 21.00 Sodium Potassium Chloride Carbon Dioxide Anion Gap BUN Creatinine GFR Calculation BUN/Creatinine Ratio Glucose Calculated Osmolality Calcium Total Creatine Kinase 109 CK-MB (CK-2) < 1.0 Troponin I < 0.015 04/25/17 05:57 WBC RBC Hgb Hct MCV MCH MCHC RDW Plt Count MPV Neut % (Auto) Lymph % (Auto) Mora % (Auto) Eos % (Auto) Baso % (Auto) Neut # (Auto) Lymph # (Auto) Mora # (Auto) Eos # (Auto) Baso # (Auto) Immature Gran % Nucleated RBC % Immature Gran # Nucleated RBCs # ABG pH ABG pCO2 ABG pO2 ABG HCO3 ABG Total CO2 ABG O2 Saturation ABG Base Excess FiO2 Sodium 139 Potassium 3.9 Chloride 103 Carbon Dioxide 25 Anion Gap 14.9 BUN 14 Creatinine 0.80 GFR Calculation 130 BUN/Creatinine Ratio 17.00 Glucose 107 H Calculated Osmolality 277.5 Calcium 9.1 Total Creatine Kinase CK-MB (CK-2) Troponin I - EKG EKG results: interpreted by me Quality Measures - Stroke Symptom Onset Unknown: No Specialty Discharge - Follow Up or Referrals
--- NOTE | 2017-04-25 20:47 | Event Note ---
I spent greater than 30 minutes with the patient's family today answering questions. The cath site is without evidence of complications. Symptomatically he is improved.
[2017-04-25] MEDS: ATORVASTATIN 40 MG TABLET PO SCH (20:59)
[2017-04-26] MEDS: SODIUM CHLORIDE 0.45% 1,000 ML IV SCH ×2 (03:58→12:31)
[2017-04-26 05:55] LABS: Basophils % 0.4 % (0.0-0.8); Eosinophils # 0.2 10*3/uL (0.0-0.87); Eosinophils % 2.4 % (0.00-10.9); Hematocrit 37.5 VOL% (42.0-52.0); Hemoglobin 12.6 GM/DL (14.0-18.0); Immature Granulocytes % 0.4 %; Immature Granulocytes Absolute 0.03 #; Lymphocytes % 38.2 % (21.2-54.2); Mean Corpuscular HGB Conc 33.6 GM/DL (32-36); Mean Corpuscular Hemoglobin 31 PG (27-34); Mean Corpuscular Volume 91.9 FL (87-102); Mean Platelet Volume 9.9 FL (9.6-12.0); Monocytes # 0.6 10*3/uL (0.11-0.8); Monocytes % 8.1 % (1.7-12.7); Neutrophils # 3.9 10*3/uL (1.4-7.4); Neutrophils % 50.5 % (38.7-73.9); Platelet Count 262 T/CUMM (130-400); Red Blood Count 4.08 MC/CUMM (3.8-5.5); Red Cell Distribution Width 12.8 % (9.3-17.3); White Blood Count 7.8 T/CUMM (4-12)
[2017-04-26 06:19] LABS: Calcium 9.3 MG/DL (8.5-10.1); Magnesium 2.1 MG/DL (1.8-2.4); Osmolality,Calculated 280.4 MOS/KG (273-304); Potassium 3.9 MMOL/L (3.5-5.1)
[2017-04-26] MEDS: ENOXAPARIN 40 MG/0.4 ML SYRINGE SUBCUT SCH (06:27)
[2017-04-26] MEDS: ASPIRIN 325 MG TABLET PO SCH (08:37)
[2017-04-26] MEDS: PANTOPRAZOLE 40 MG TABLET PO SCH (08:37)
[2017-04-26] MEDS: NABUMETONE 500 MG TABLET PO SCH (08:37)
[2017-04-26] MEDS: CLOPIDOGREL 75 MG TABLET PO SCH (08:37)
[2017-04-26] MEDS: EZETIMIBE 10 MG TABLET PO SCH (08:37)
[2017-04-26] MEDS: DICLOFENAC 1% GEL 100 GM TUBE TOP SCH ×2 (08:39→13:21)
[2017-04-26 12:35] VITALS: BP 121/73
--- NOTE | 2017-04-26 13:31 | Discharge Summary ---
Hospital Course - Hospital Course Hospital Course: Mr. Madison is a 57 year old male with history of obesity, highly symptomatic, drug refractory paroxysmal atrial fibrillation, for which she underwent pulmonary vein isolation 2 months ago. There is no symptomatic recurrence of the arrhythmia since. He felt good for a week after the ablation, then developed shortness of breath. Mild, nonproductive cough. Transiently, he has some fever. This is gotten progressively worse. He was hospitalized 2 weeks ago, for shortness of breath, occasional chest pain CT scan did not show PE, significant pericardial effusion, or atrial esophageal fistula. There were some enlarged mediastinal lymph nodes. He was treated for pneumonia and discharged home. His symptoms were not getting better, he did not have fever but not the shortness of breath to the point, when he finds it hard to speak in full sentences. There is no orthopnea lower extremity swelling palpitations. He also had some chest pain. One of his prior CTs, coronary calcification was suspected. On his prior admission, elevated ESR was found. On this admission, a CT angiogram was performed, which showed no pulmonary emboli, no atrial esophageal fistula and no evidence of pulmonary vein stenosis. There was trace pericardial effusion and still, some mildly enlarged mediastinal lymph nodes. The ESR was still elevated. -He underwent cardiac catheterization by Dr. Martinez, circumflex lesion was found and successful PCI was performed. -Pulmonary consult was also obtained, no significant lung pathology was identified. -Cont to use CPAP for VANESSA -As he was started on aspirin and Plavix for his PCI, the anticoagulation was stopped. An ILR was implanted for silent AF monitoring - no clinical recurrence of the AF since the ablation -Follow-up with Dr. 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 -We also discussed smoking cessation, he will try Chantix. Diagnosis - Discharge Diagnosis (1) S/P ablation of atrial fibrillation Status: Chronic (2) Hypertension Status: Chronic (3) Sleep apnea Status: Chronic (4) Hypertension Status: Chronic Specialty Discharge - Follow Up or Referrals Discharge Plan - Discharge Data Disposition: Disch To Home/Self Care Condition at Discharge: Stable Discharge Diet: advance to your usual diet Activity: resume usual activities as tolerated, no lifting (No heavy lifting for 5 days) Hygiene: keep area(s) dry Weight Bearing at Discharge: full weight bearing Driving: not for (3 days) Contact your physician if you experience:: fever over 101, Difficulty voiding, Redness or swelling, Nausea/Vomiting, Shortness of breath, Bleeding, pain uncontrolled by pain medications Wound / Dressing Care Instructions: Keep the loop recorder implant site dry and the dressing in place for 1 week. - Discharge Medications New RX: Aspirin Tab 325 mg PO DAILY #90 tablet RX: Clopidogrel [Plavix] 75 mg PO DAILY #90 tablet Varenicline Tartrate [Chantix Starter Month Pack] 1 each PO DAILY #1 tab.ds.pk Continue RX: Multivit-Min/FA/Lycopen/Lutein [Centrum Silver Tablet] 1 each PO QAM RX: Nabumetone [Relafen] 500 mg PO BID W/MEALS RX: Omeprazole Magnesium [Prilosec Otc] 20 mg PO QAM #60 RX: Diclofenac 1% Gel [Voltaren 1% Gel] 1 applic TOP QID #1 applic RX: Ezetimibe [Zetia] 10 mg PO QAM RX: Acetaminophen [Acetaminophen ER Tab] 1,300 mg PO QAM Discontinued RX: Ibuprofen 400 mg PO Q6H PRN #30 tablet PRN Reason: Chest Pain RX: Apixaban [Eliquis] 5 mg PO BID #60 RX: Azithromycin Tab [Zithromax Tab] 250 mg PO DAILY #10 tablet - Follow Up or Referral Follow Up: Allie Martinez MD [Physician] - 1 Week - Forms/Instructions Instructions: Left Heart Catheterization (DC), How to Stop Smoking (GEN), Heart Healthy Diet (GEN), Coronary Intravascular Stent Placement (DC), Cigarette Smoking and Your Health, Machine Cementer And Folder (GEN) Exam - Constitutional Vitals: Period Temp Pulse Resp BP Sys/Parker Pulse Ox Last 24 Hr 97.8 F-98.6 F 63-82 16-20 108-132/70-79 90-99 General appearance: normal weight, no acute distress - Head Head exam: Present: normal inspection, normocephalic - Eye Eye exam: Absent: conjunctival injection Pupils: Absent: dilated - ENT ENT exam: Present: normal external ear exam - Neck Neck exam: Present: normal inspection - Respiratory Respiratory exam: Present: clear to auscultation bilaterally - Cardiovascular Cardiovascular exam: Present: regular rate and rhythm - GI/Abdominal GI/Abdominal exam: Present: normal bowel sounds - Extremities Exam Extremities exam: Present: normal inspection, normal capillary refill. Absent: edema - Back Exam Back exam: Present: normal inspection - Neurological Exam Neurological exam: Present: alert, oriented X3 - Psychiatric Psychiatric exam: Present: normal affect, normal mood. Absent: anxious - Skin Skin exam: Present: normal color, warm, other (Dressing over the ILR implant site. There is no groin hematoma.). Absent: cyanosis Discharge Results Procedures and tests throughout hospitalization: Pending Orders 04/24/17 06:51 CL heart Routine 04/25/17 13:46 CL heart Routine 04/27/17 04:00 BMP w/ Mg [Basic Metabolic Panel w/Mg] IN AM CBC [Comp Blood Count Auto Diff] IN AM 04/28/17 04:00 BMP w/ Mg [Basic Metabolic Panel w/Mg] IN AM CBC [Comp Blood Count Auto Diff] IN AM Labs on day of discharge: Labs from last 24 hours 04/26/17 04/26/17 05:08 05:08 WBC 7.8 RBC 4.08 Hgb 12.6 L Hct 37.5 L MCV 91.9 MCH 31 MCHC 33.6 RDW 12.8 Plt Count 262 MPV 9.9 Neut % (Auto) 50.5 Lymph % (Auto) 38.2 [place] % (Auto) 8.1 Eos % (Auto) 2.4 Baso % (Auto) 0.4 Neut # (Auto) 3.9 Lymph # (Auto) 3.0 [place] # (Auto) 0.6 Eos # (Auto) 0.2 Baso # (Auto) 0.0 Immature Gran % 0.4 Nucleated RBC % 0.0 Immature Gran # 0.03 Nucleated RBCs # 0.00 Sodium 140 Potassium 3.9 Chloride 104 Carbon Dioxide 24 Anion Gap 15.9 H BUN 14 Creatinine 0.80 GFR Calculation 130 BUN/Creatinine Ratio 17.00 Glucose 111 H Calculated Osmolality 280.4 Calcium 9.3 Magnesium 2.1 - Imaging and Cardiology Cardiology Procedure: image reviewed by me, report reviewed by me DS: Provider Date of admission: 04/23/17 15:33 Primary care physician: Mitesh Morris DO Attending physician on admission: Allie Martinez, Consults: 04/23/17 16:16 Consult to Pastoral Services [CONS] Routine Comment: Pastoral Screen: Declines Visit Pastoral Screen Source of Request: Patient 04/24/17 13:32 Consult to Cardiac Rehabilitation [CONS] Routine Reason for Cardiac Rehabilitation: Risk Factor Modification Consult to Physician [CONS] Routine Comment: Progressive SOB, hypoxia over months Consulting Provider: Albaro Glass Consult to Specialist Group: Pulmonology Person Notified: HAYLEY Date Notified: 04/24/17 Time Notified: 14:05 Discharging clinician: Finn Bhatia MD Expected date of discharge: 04/26/17
== END 2017-04-26 16:00 | disposition home or self-care (01) ==
LOC: INTOOBSV 15:33 → N.2E 15:33 → N.TELEN 04-24 13:32
PROVIDERS: ADMIT Internal Medicine Cardiovascular Disease; ATTEND Internal Medicine Cardiovascular Disease

== ENCOUNTER 2017-08-11 05:39 | Inpatient (IN) ==
[2017-08-11] MEDS ORDERED: ceFAZolin 1,000 MG VIAL ONE (05:57)
[2017-08-11] MEDS ORDERED: VANCOMYCIN 1,000 MG VIAL ONE (05:57)
[2017-08-11] MEDS ORDERED: SODIUM CHLORIDE 0.9% 100 ML IV ONE (05:58)
[2017-08-11] MEDS ORDERED: VANCOMYCIN INJ 1,000 MG in SODIUM CHLORIDE 0.9% 250 ML IV ONE (06:00)
--- NOTE | 2017-08-11 06:56 | History and Physical Update ---
History and Physical Update - History and Physical H&P was reviewed, the patient examined and there: are no changes in the patients condition since last H&P was completed.
[2017-08-11] MEDS ORDERED: LORazepam 1 MG TABLET ONE (07:00)
[2017-08-11] MEDS ORDERED: FAMOTIDINE 20 MG TABLET ONE (07:00)
[2017-08-11] MEDS ORDERED: FAMOTIDINE 20 MG TABLET PO ONE (07:13)
[2017-08-11] MEDS ORDERED: LORazepam 1 MG TABLET PO ONE (07:13)
[2017-08-11] MEDS: LACTATED RINGERS 1,000 ML IV SCH ×3 (07:27→22:46)
[2017-08-11] MEDS ORDERED: MORPHINE 10 MG/1 ML VIAL ONE (07:33)
[2017-08-11 07:40] LABS: PT Patient Result 10.2 SECS; Partial Thromboplastin Time 27.4 SECS (0-40)
[2017-08-11] MEDS ORDERED: MORPHINE 2 MG/1 ML SYRINGE IV STA (07:40)
[2017-08-11] MEDS ORDERED: SEVOFLURANE 1 UNIT/15 MINUTE INH ONE ×2 (09:00→11:48)
[2017-08-11] MEDS ORDERED: LIDOCAINE 2% 5 ML VIAL ONE (09:00)
[2017-08-11] MEDS ORDERED: ROCURONIUM 100 MG/10 ML VIAL IV ONE (09:00)
[2017-08-11] MEDS ORDERED: PROPOFOL 200 MG/20 ML VIAL IV ONE (09:00)
[2017-08-11] MEDS ORDERED: ONDANSETRON 4 MG/2 ML VIAL ONE (09:00)
[2017-08-11] MEDS ORDERED: ROPIVACAINE 0.5% 30 ML VIAL ONE ×2 (09:33→11:05)
[2017-08-11] MEDS ORDERED: TRANEXAMIC ACID 1,000 MG/10 ML VIAL IV ONE (09:37)
[2017-08-11] MEDS ORDERED: HYDROmorphone 2 MG/1 ML VIAL IV PRN (09:42)
[2017-08-11] MEDS ORDERED: diphenhydrAMINE CAP 25 MG CAPSULE PO PRN (09:42)
[2017-08-11] MEDS ORDERED: ONDANSETRON 4 MG/2 ML VIAL IV PRN (09:42)
[2017-08-11] MEDS ORDERED: MAGNESIUM HYDROXIDE SUSP 30 ML UDCUP PO PRN (09:42)
[2017-08-11] MEDS ORDERED: LACTULOSE 20 GM/30 ML UDCUP PO PRN (09:42)
[2017-08-11] MEDS ORDERED: NALOXONE 0.4 MG/ML VIAL IV PRN (09:42)
[2017-08-11] MEDS ORDERED: BISACODYL 10 MG SUPP RECTAL PRN (09:42)
[2017-08-11] MEDS ORDERED: PROMETHAZINE 25 MG/1 ML VIAL IM PRN (09:42)
[2017-08-11] MEDS ORDERED: TEMAZEPAM 7.5 MG CAPSULE PO PRN (09:42)
[2017-08-11] MEDS: HYDROmorphone 2 MG/1 ML VIAL IV PRN ×3 (11:39→12:42)
[2017-08-11] MEDS ORDERED: HYDROmorphone PCA 30 MG/30 ML SYRINGE IV ONE (11:45)
[2017-08-11] MEDS ORDERED: HYDROmorphone 2 MG/1 ML VIAL ONE (11:45)
[2017-08-11] MEDS: HYDROmorphone PCA 30 MG/30 ML SYRINGE IV SCH (11:48)
[2017-08-11] MEDS ORDERED: LACTATED RINGERS 1,000 ML IV ONE (11:49)
[2017-08-11] MEDS ORDERED: MIDAZOLAM 2 MG/2 ML VIAL ONE (11:49)
[2017-08-11] MEDS ORDERED: fentaNYL 100 MCG/2 ML VIAL ONE (11:49)
[2017-08-11] MEDS ORDERED: ACETAMINOPHEN 1,000 MG/100 ML VIAL IV ONE (11:53)
--- NOTE | 2017-08-11 12:23 | Anesthesia Procedures ---
Anesthesia Procedures - Nerve Blocks Main Anesthetic: general anesthesia Location: PACU Position: supine Patient Consent: Patinet consented for above nerve block. (Rt Saphenous block redone to suplement partial blockade,), Risks and benefits were discussed with patient,including infection,, bleeding,injury to surrounding structures, seizure , temporary nerve, Patient understands and accepts potential risks/benefits and agrees to ASA Monitors on: pulse oximetry, EKG, BP cuff, oxygen via Local Anesthetic: Sterile technique with 2% Chlorhexidine / Betadine, Local (1.5 % Lidocaine) used to numb skin Ultrasound Used to: Recognize Landmarks Nerve Stimulator used: No Inject slowly in 5cc increments with:: Negative aspitation of heme Patient vitals signs stable throughout procedure.: Patient tolertaed the procedure well with no apparent complications.
[2017-08-11] MEDS ORDERED: ACETAMINOPHEN INJ 1,000 MG in PREMIX 1 EACH IV ONE (12:41)
--- NOTE | 2017-08-11 12:43 | Orthopedic Progress Note ---
Orthopedics - Subjective Interval history: Postop check in recovery. Good pulse up in a.m. Exam - Constitutional Vitals: Period Temp Pulse Resp BP Sys/Parker Pulse Ox Last 24 Hr 97.1 F-98.6 F 65-75 14-20 116-156/77-98 94-98
[2017-08-11] MEDS: MULTIVITAMIN (CENTRUM) TABLET PO SCH (15:08)
--- NOTE | 2017-08-11 15:15 | XRay Report ---
History: Joint replacement right knee Date: 08/11/2017 Study: Right knee 2 views Comparison exam: No previous similar The patient is immediately postop right knee replacement. The knee prosthesis appears well conjugated. Surgical drains and skin wolf are associated with the soft tissues of the knee anteriorly. There is no fracture or radiographic evidence of complication otherwise. Impression: Satisfactory postop appearance of the right knee prosthesis PROCEDURE INTERPRETED AT [facility] DEPARTMENT OF RADIOLOGY Final Report Signed by: Dr. Yandy German
[2017-08-11] MEDS: DICLOFENAC 1% GEL 100 GM TUBE TOP SCH ×3 (16:05→21:22)
[2017-08-11] MEDS: ceFAZolin 2,000 MG in PREMIX 1 EACH IV SCH ×2 (16:05→20:53)
--- NOTE | 2017-08-11 16:35 | Family Practice History&Phys ---
Assessment and Plan (1) Status post total knee replacement, right Status: Acute Assessment and plan: Elective surgery, secondary to severe osteoarthritis, currently stable, on PSYCHIATRIC NP pump, IV and oral pain meds, continue Ortho recommendations on Abx , 2. Sleep apnea, on CPAP, application technician to adjust settings, continue O2 nasal cannula, concern of decreasing pulse ox when goes to sleep. 3. Dyslipidemia, on Zetia 4. History of A. fib, stable 5.HTN stable, continue current plan Current Visit: Yes (2) Sleep apnea Status: Chronic Current Visit: Yes Qualifiers: Sleep apnea type: obstructive Qualified Code(s): G47.33 - Obstructive sleep apnea (adult) (pediatric) (3) Dyslipidemia Status: Chronic Current Visit: Yes (4) History of atrial fibrillation Status: Chronic Current Visit: Yes (5) Hypertension Status: Chronic Current Visit: Yes Qualifiers: Hypertension type: essential hypertension Qualified Code(s): I10 - Essential (primary) hypertension History of Present Illness Chief complaint: admitted for elective rt TKR, secondary to severe osteoarthritis History of present illness: Mr. Madison is a 57 year old male PCP :, pt is admitted for elective rt knee total replacement this AM, had severe osteoarthritis, History obtained from the spouse. h/o hypertension, dyslipidemia, atrial fibrillation status post ablation, CAD s/ p Stents, sleep apnea, Patient is presently postop, is drowsy, Hemodynamically, vitals are stable currently. No complaints of fever, nausea, vomiting, chest pain, shortness of breath given. This afternoon he had liquid diet, which she tolerated well. Currently on PSYCHIATRIC NP pump, pain is fairly controlled. Family has got CPAP machine from home for his sleep apnea. Home Medications Medication Instructions Recorded Confirmed Type Ezetimibe [Zetia] 10 mg PO QAM 01/13/17 08/11/17 History Acetaminophen [Acetaminophen ER 1,300 mg PO QAM PRN 01/29/17 08/11/17 History Tab] Multivit-Min/FA/Lycopen/Lutein 1 each PO QAM 01/29/17 08/11/17 History [Centrum Silver Tablet] Nabumetone [Relafen] 500 mg PO BID W/MEALS 01/29/17 08/11/17 History Diclofenac 1% Gel [Voltaren 1% Gel] 1 applic TOP QID #1 applic 04/14/17 Rx Clopidogrel [Plavix] 75 mg PO DAILY #90 tablet 04/26/17 08/11/17 Rx Aspirin [Ecotrin] 81 mg PO DAILY 07/23/17 08/11/17 History Pantoprazole Tab [Protonix Tab] 40 mg PO DAILY 07/23/17 08/11/17 History Allergies Allergy/AdvReac Type Severity Reaction Status Date / Time Aseomma-Fmc-Uae Reductase AdvReac Intermediate Muscle Pain Verified 08/11/17 14: 22 Inhibitor - Constitutional Constitutional: Present: as per HPI - EENT Eyes: Present: as per HPI Nose, mouth and throat: Present: as per HPI - Cardiovascular Cardiovascular: Present: as per HPI - Respiratory Respiratory: Present: as per HPI - Gastrointestinal Gastrointestinal: Present: as per HPI - Genitourinary Genitourinary: Present: as per HPI - Musculoskeletal Musculoskeletal: Present: as per HPI - Neurological Neurological: Present: as per HPI - Psychiatric Psychiatric: Present: as per HPI - Endocrine Endocrine: Present: as per HPI - Hematologic/Lymphatic Hematologic/Lymphatic: Present: as per HPI Medical,Surgical,& Family Hx - Medical History Cardio: History of: Cardiac Dysrhythmia (A-fib), Hypertension No history of: CHF, CAD, [place], Pacemaker, PVD, Valvular Heart Disease Psychological: No history of: Anxiety Disorders, ADHD, Behavior Problems, Bipolar Disorder, Depression, Previous Suicide Attempt, Psychiatric/Substance Abuse Tx, Schizophrenia, Violent Behavior, Psychiatric Problems Neurology: No history of: Seizures HEENT: History of: Ear Problem ([place] bilateral hearing aides), Eye Problem ( contacts/reading glasses), HEENT Problems No history of: Glaucoma, Oral Cancer Endocrine: History of: Dyslipidemia No history of: Adrenal Disease, Diabetes Mellitus (IDDM), Diabetes Mellitus ( NIDDM), Thyroid Disorder, Endocrine Cancer, Endocrine Problems Respiratory: History of: Obstructive Sleep Apnea (Bipap), Pneumonia No history of: Pulmonary Hypertension Gastrointestinal: History of: GERD Musculoskeletal: History of: Degenerative Disk Disease No history of: Amputation Hematology: No history of: Anemia, Bleeding Problems, Clotting Problems, Sickle Cell Disease, Hematologic Cancer, Blood Disorders Other: No history of: Anesthesia Reactions - Surgical History Cardiac Surgeries: Sugical HX of: Cardiac Catheterization (i heart stent and heart monitor in chest, heart ablation 2016), Cardiac Surgery (ablation) Thoracic Surgeries: Patient denies;: Organ Transplant, Lobectomy Neurologic Surgeries: Patient denies: Neurologic Surgery HEENT Surgeries: Surgical HX of: Tonsilectomy & Adenoidectomy Patient denies: Eye Surgery, Thyroid Surgery Abdominal Surgeries: Patient denies: Abdominal Surgery, Appendectomy, Cholecystectomy Reproductive Surgeries: Patient denies;: Breast Surgery, Genitourinary Surgery, Vasectomy Orthopedic Surgeries: Surgical HX of;: Total Knee Replacement (RIGHT 08/17) Patient denies;: Implanted Devices, Orthopedic Surgery, Spinal Surgery, Total Hip Replacement - Family History Family History: Reports;: Family Cancer (Mother: ovarian CA), Family Heart Disease (Father: ablation, bypass, pacemaker) Denies;: Family Anesthesia Reaction, Family Hypertension, Family Psychiatric Problems, Family Stroke - Social History Smoking Status: Former smoker Frequency of Alcohol Use: Occasionally Type of Drug Use: None Exam - Constitutional Vitals: Period Temp Pulse Resp BP Sys/Parker Pulse Ox Last 24 Hr 97.1 F-98.6 F 61-81 14-20 116-156/77-103 94-99 Exam: Examination: GENERAL: Patient is postop, drowsy, but arousable, obese male pt, has O2 nasal cannula, HEENT: normal, NECK: Neck is supple. No JVD. No carotid bruit. No thyromegaly. CVS: Regular rate and rhythm at the time of exam, S1 and S2 are normal. RESPIRATORY: Clear to ausculation bilaterally , No wheezes, rales or rhonchi. ABDOMEN: Soft and nontender. Bowel sounds are present. No hepatosplenomegaly. EXT: Right lower extremity, has dressing, splint in place, with surgical drain, is able to move toes. HOME HEALTH SPEECH THERAPIST: Cranial nerves 2-12 grossly intact. Results - Labs Lab Results: I have reviewed the past 24 hour labs - Diagnostic Findings Procedure: X-ray: report reviewed by me, image reviewed by me Quality Measures - VTE Deep Vein Thrombosis/Pulmonary Embolism Present on Admission: No
[2017-08-11] MEDS: NABUMETONE 500 MG TABLET PO SCH (17:27)
--- NOTE | 2017-08-11 18:50 | Operative Note ---
DATE OF SURGERY: 08/11/2017 PREOPERATIVE DIAGNOSIS: OSTEOARTHRITIS, RIGHT KNEE. POSTOPERATIVE DIAGNOSIS: OSTEOARTHRITIS, RIGHT KNEE. OPERATIVE PROCEDURE: RIGHT TOTAL KNEE ([place]). SURGEON: Brooks Collazo Jr., MD. ANESTHESIA: Spinal. INDICATIONS: A 57-year-old white male with severe osteoarthritis to his right knee, presents today f or elective arthroplasty. He has maximized conservative treatment through the years including previo us injections and medications. They are no longer beneficial. He is here today for elective right t otal knee. OPERATIVE PROCEDURE: The patient was taken to the operating room and under spinal anesthetic, positi oned in the supine position. The right lower extremity was positioned, prepped and draped in the usu al sterile manner. He received vancomycin and Ancef preoperatively. The limb was elevated, exsangui nated, and the tourniquet inflated to 300 mmHg. A midline incision was made over the anterior aspect of the right knee. Sharp dissection was carried down through skin and subcutaneous tissue. A media n parapatellar arthrotomy performed with the knee revealing large osteophytes and tricompartmental ch anges, which were severe bone to bone. Intramedullary alignment guides were used to make the appropr iate cuts about the distal femur and proximal tibia. The femur was sized to a 6, the tibia to a 7. A 7 mm spacer was selected. The PCL retained. The patella resurfaced with a 38 button. After remov al of the trial components, the knee irrigated and then all three components were cemented into place . After the cement hardened, the wound was then closed over two 1/8th-inch Hemovac drains in a stand yoni fashion using #1 Vicryl for the arthrotomy, 2-0 Vicryl for the subcutaneous layer, and wolf fo r skin. The tourniquet was deflated during wound closure at 50 minutes. Sterile dressings were appl ied. He was taken to recovery room in stable condition.
[2017-08-11] MEDS: DOCUSATE SODIUM 100 MG CAPSULE PO SCH (20:52)
[2017-08-11] MEDS: FONDAPARINUX 2.5 MG/0.5 ML SYRINGE SUBCUT SCH (20:52)
[2017-08-12 06:31] LABS: Basophils % 0.2 % (0.0-0.8); Eosinophils # 0.1 10*3/uL (0.0-0.87); Eosinophils % 1.1 % (0.00-10.9); Hematocrit 30.4 VOL% (42.0-52.0); Hemoglobin 10.4 GM/DL (14.0-18.0); Immature Granulocytes % 0.3 %; Immature Granulocytes Absolute 0.03 #; Lymphocytes # 2.4 10*3/uL (1.4-4.0); Lymphocytes % 22.6 % (21.2-54.2); Mean Corpuscular HGB Conc 34.2 GM/DL (32-36); Mean Corpuscular Hemoglobin 31 PG (27-34); Mean Corpuscular Volume 91.3 FL (87-102); Mean Platelet Volume 10.2 FL (9.6-12.0); Monocytes # 1.2 10*3/uL (0.11-0.8); Monocytes % 11.6 % (1.7-12.7); Neutrophils # 6.7 10*3/uL (1.4-7.4); Neutrophils % 64.2 % (38.7-73.9); Platelet Count 267 T/CUMM (130-400); Red Blood Count 3.33 MC/CUMM (3.8-5.5); Red Cell Distribution Width 12.4 % (9.3-17.3); White Blood Count 10.5 T/CUMM (4-12)
[2017-08-12 07:03] LABS: Calcium 8.1 MG/DL (8.5-10.1); Potassium 3.8 MMOL/L (3.5-5.1)
--- NOTE | 2017-08-12 08:31 | Orthopedic Progress Note ---
Orthopedics - Subjective Interval history: Comfortable. Drain removed. Neurovascular intact H&H stable start PT Exam - Constitutional Vitals: Period Temp Pulse Resp BP Sys/Parker Pulse Ox Last 24 Hr 97.1 F-100.3 F 61-85 14-20 111-156/60-103 91-99 Results - Labs CBC & BMP: 08/12/17 06:01 08/12/17 06:01 Quality Measures - VTE Deep Vein Thrombosis/Pulmonary Embolism Present on Admission: No
[2017-08-12] MEDS ORDERED: PANTOPRAZOLE 40 MG TABLET PO SCH (09:00)
--- NOTE | 2017-08-12 09:20 | Family Practice Progress Note ---
Family Practice - PN: Subj Interval history: PCP :, pt is s/p rt knee total replacement , post op day1, Physical therapist at bedside, h/o hypertension not on BP meds currently, dyslipidemia, atrial fibrillation status post ablation, CAD s/p Stents, sleep apnea, had fever yesterday , no nausea, vomiting, chestpain or SOB, c/o pain at rt knee, post op site, Exam (Progress Note) - Constitutional Vitals: Period Temp Pulse Resp BP Sys/Parker Pulse Ox Last 24 Hr 97.1 F-100.3 F 61-85 14-20 111-156/60-103 91-99 Exam: Examination: GENERAL: Patient is awake, sitting at bed side,starting to do PT HEENT: normal, NECK: Neck is supple. No JVD. No carotid bruit. No thyromegaly. CVS: Regular rate and rhythm at the time of exam, S1 and S2 are normal. RESPIRATORY: Clear to ausculation bilaterally , No wheezes, rales or rhonchi. ABDOMEN: Soft and nontender. Bowel sounds are present. No hepatosplenomegaly. EXT: Right lower extremity, has dressing, TREE EXPERT:Alert, oriented,Cranial nerves 2-12 grossly intact. Results - Labs CBC & BMP: 08/12/17 06:01 08/12/17 06:01 Lab Results: I have reviewed the past 24 hour labs Assessment and Plan (1) Status post total knee replacement, right Status: Acute Assessment and plan: POST OP day1 today,on PUBLIC HEALTH PHYSICIAN pump, IV and oral pain meds, continue Ortho recommendations H/H stable ,on PT/OT 2. Sleep apnea, on CPAP, bacteriology technician to adjust settings, continue O2 nasal cannula, concern of decreasing pulse ox when goes to sleep. 3. Dyslipidemia, on Zetia 4. History of A. fib, stable 5.HTN stable, continue current plan Current Visit: Yes (2) Sleep apnea Status: Chronic Current Visit: Yes Qualifiers: Sleep apnea type: obstructive Qualified Code(s): G47.33 - Obstructive sleep apnea (adult) (pediatric) (3) Dyslipidemia Status: Chronic Current Visit: Yes (4) History of atrial fibrillation Status: Chronic Current Visit: Yes (5) Hypertension Status: Chronic Current Visit: Yes Qualifiers: Hypertension type: essential hypertension Qualified Code(s): I10 - Essential (primary) hypertension Quality Measures - VTE Deep Vein Thrombosis/Pulmonary Embolism Present on Admission: No
[2017-08-12] MEDS: NABUMETONE 500 MG TABLET PO SCH ×2 (09:41→17:48)
[2017-08-12] MEDS: ASPIRIN EC 81 MG TABLET PO SCH (09:42)
[2017-08-12] MEDS: MULTIVITAMIN (CENTRUM) TABLET PO SCH (09:43)
[2017-08-12] MEDS: DOCUSATE SODIUM 100 MG CAPSULE PO SCH ×2 (09:43→20:48)
[2017-08-12] MEDS: CLOPIDOGREL 75 MG TABLET PO SCH (09:44)
[2017-08-12] MEDS: EZETIMIBE 10 MG TABLET PO SCH (09:45)
--- NOTE | 2017-08-12 11:22 | Pathology Report from [facility] ---
[facility] ACCESSION # : [id number] PATIENT NAME : Mounika Madison ORDERING DR : MOUNIKA ENCISO JR, MD CLINICAL HX: RT knee osteoarthritis POST-OP DX: Same SPECIMEN INFO: RT knee bone & tissue GROSS DESCRIPTION: Received in formalin labeled MOUNIKA MADISON is an aggregate of bone, soft tissue and cartilage measuring 22.0 x 7.0 cm. The articular surfaces are focally degenerative with areas of subchondral eburnation seen. Employment Advisor tissue is submitted in one cassette. DIAGNOSIS FOR MOUNIKA MADISON: RIGHT KNEE BONE & TISSUE, TOTAL REPLACEMENT: Osteoarthritis. COLLECTED DATE: 08/11/2017 [facility] REPORT DATE: 08/12/2017 ELECTRONICALLY SIGNED BY: Jaylin Ponce M.D. 08/12/2017 - 10:11:18 [facility]ENTERJin
[2017-08-12] MEDS: DICLOFENAC 1% GEL 100 GM TUBE TOP SCH ×4 (11:26→21:55)
[2017-08-12] MEDS: HYDROmorphone PCA 30 MG/30 ML SYRINGE IV SCH (11:26)
[2017-08-12] MEDS: LACTATED RINGERS 1,000 ML IV SCH (13:21)
--- NOTE | 2017-08-12 13:41 | XRay Report ---
History: Shortness of breath Date: 08/12/2017 Study: Chest x-ray AP portable Comparison exam: April 25, 2017 The cardiac silhouette is upper normal in size. The mediastinal contours are stable. The pulmonary vasculature is not engorged. There is some strandy and hazy opacity in the left lung base which has developed since the previous study. This could represent atelectasis with or without pneumonia. The lungs and pleural spaces are otherwise clear. Implantable electronic monitoring device overlies the lower chest. Osseous structures are unremarkable. Impression: Left basilar atelectasis/infiltrate has developed since the previous study. Pneumonia cannot be excluded. Implantable electronic monitoring device overlies the lower left chest anteriorly. Otherwise unchanged PROCEDURE INTERPRETED AT [facility] DEPARTMENT OF RADIOLOGY Final Report Signed by: Dr. Yandy German
[2017-08-12 16:34] LABS: Apearance,Urine CLEAR (Clear); Bilirubin,Urine Negative (Negative); Blood, Urine Negative (Negative); Glucose,Urine (UA) Negative (Negative); Ketones,Urine Negative (Negative); Nitrite,Urine Negative (Negative); Protein,Urine Negative; RBC,Urine <1 /HPF (0-4); Urine Color Straw (Yellow); Urine Specific Gravity 1.003 (1.001-1.035); Urine Urobilinogen < 2.0 EU/DL (0.2-1.0)
[2017-08-12] MEDS ORDERED: PANTOPRAZOLE 20 MG TABLET PO ONE (17:46)
[2017-08-12] MEDS: PANTOPRAZOLE 20 MG TABLET PO SCH (20:47)
[2017-08-12] MEDS: FONDAPARINUX 2.5 MG/0.5 ML SYRINGE SUBCUT SCH (20:48)
[2017-08-13 05:24] LABS: Basophils % 0.2 % (0.0-0.8); Eosinophils # 0.2 10*3/uL (0.0-0.87); Eosinophils % 1.8 % (0.00-10.9); Hematocrit 30.3 VOL% (42.0-52.0); Hemoglobin 10.4 GM/DL (14.0-18.0); Immature Granulocytes % 0.4 %; Immature Granulocytes Absolute 0.04 #; Lymphocytes # 1.9 10*3/uL (1.4-4.0); Lymphocytes % 18.9 % (21.2-54.2); Mean Corpuscular HGB Conc 34.3 GM/DL (32-36); Mean Corpuscular Hemoglobin 31 PG (27-34); Mean Corpuscular Volume 91.3 FL (87-102); Mean Platelet Volume 10.1 FL (9.6-12.0); Monocytes # 1.4 10*3/uL (0.11-0.8); Monocytes % 13.9 % (1.7-12.7); Neutrophils # 6.4 10*3/uL (1.4-7.4); Neutrophils % 64.8 % (38.7-73.9); Platelet Count 251 T/CUMM (130-400); Red Blood Count 3.32 MC/CUMM (3.8-5.5); Red Cell Distribution Width 12.2 % (9.3-17.3); White Blood Count 9.9 T/CUMM (4-12)
[2017-08-13 07:43] LABS: Calcium 8.7 MG/DL (8.5-10.1); Osmolality,Calculated 267.1 MOS/KG (273-304); Potassium 4.1 MMOL/L (3.5-5.1)
[2017-08-13] MEDS: MULTIVITAMIN (CENTRUM) TABLET PO SCH (08:58)
[2017-08-13] MEDS: ASPIRIN EC 81 MG TABLET PO SCH (08:58)
[2017-08-13] MEDS: PANTOPRAZOLE 20 MG TABLET PO SCH ×2 (08:58→20:29)
[2017-08-13] MEDS: NABUMETONE 500 MG TABLET PO SCH ×2 (08:59→16:39)
[2017-08-13] MEDS: EZETIMIBE 10 MG TABLET PO SCH (08:59)
[2017-08-13] MEDS: CLOPIDOGREL 75 MG TABLET PO SCH (08:59)
[2017-08-13] MEDS: DOCUSATE SODIUM 100 MG CAPSULE PO SCH ×2 (08:59→20:29)
--- NOTE | 2017-08-13 09:12 | Family Practice Progress Note ---
Family Practice - PN: Subj Interval history: PCP :, pt is s/p rt knee total replacement , post op day2, Physical therapist at bedside, h/o hypertension not on BP meds currently, dyslipidemia, atrial fibrillation status post ablation, CAD s/p Stents, sleep apnea, had fever yesterday, no chills, no sweating, no cough , no nausea, vomiting, today denies chestpain or SOB, c/o pain at rt knee, post op site, Exam (Progress Note) - Constitutional Vitals: Period Temp Pulse Resp BP Sys/Parker Pulse Ox Last 24 Hr 98.3 F-100.8 F 74-87 18-20 123-143/70-80 95-96 Exam: Examination: GENERAL: Patient is awake, in no acute distress, obese male patient, status postop right total knee replacement HEENT: normal, NECK: Neck is supple. No JVD. No carotid bruit. No thyromegaly. CVS: Regular rate and rhythm at the time of exam, S1 and S2 are normal. RESPIRATORY: Clear to ausculation bilaterally , No wheezes, rales or rhonchi. ABDOMEN: Soft and nontender. Bowel sounds are present. No hepatosplenomegaly. EXT: Right lower extremity, edema and leg, with dressing over the knee AVIATION PROJECT ENGINEER:Alert, oriented,Cranial nerves 2-12 grossly intact. Results - Labs CBC & BMP: 08/13/17 03:43 08/13/17 03:43 Lab Results: I have reviewed the past 24 hour labs - Diagnostic Findings Procedure: Chest x-ray: report reviewed by me, image reviewed by me (was a portable x-ray) Assessment and Plan (1) Status post total knee replacement, right Status: Acute Assessment and plan: POST OP day2 today, on IV and oral pain meds when necessary, continue Ortho recommendations H/H stable ,on PT/OT, will repeat chest x-ray to rule out pneumonia. 2. Sleep apnea, on CPAP, we'll get sleep study consult, continue O2 nasal cannula, 3. Dyslipidemia, on Zetia 4. History of A. fib, stable 5.HTN stable, continue current plan Swing bed placement when ready for discharge Current Visit: Yes (2) Sleep apnea Status: Chronic Current Visit: Yes Qualifiers: Sleep apnea type: obstructive Qualified Code(s): G47.33 - Obstructive sleep apnea (adult) (pediatric) (3) Dyslipidemia Status: Chronic Current Visit: Yes (4) History of atrial fibrillation Status: Chronic Current Visit: Yes (5) Hypertension Status: Chronic Current Visit: Yes Qualifiers: Hypertension type: essential hypertension Qualified Code(s): I10 - Essential (primary) hypertension Quality Measures - VTE Deep Vein Thrombosis/Pulmonary Embolism Present on Admission: No
[2017-08-13] MEDS: ACETAMINOPHEN 325 MG TABLET PO PRN (10:54)
[2017-08-13] MEDS: DICLOFENAC 1% GEL 100 GM TUBE TOP SCH ×4 (11:18→20:30)
--- NOTE | 2017-08-13 11:29 | Orthopedic Progress Note ---
Orthopedics - Subjective Interval history: Comfortable wound okay H&H stable has some low-grade temps I believe most likely normal postoperative, atelectasis. I will continue with mobile mobility and PT weightbearing as tolerated also has incentive spirometry. Possible to swing bed as early as tomorrow Exam - Constitutional Vitals: Period Temp Pulse Resp BP Sys/Parker Pulse Ox Last 24 Hr 98.3 F-100.8 F 80-87 18-20 123-143/70-80 95-96 Results - Labs CBC & BMP: 08/13/17 03:43 08/13/17 03:43 Quality Measures - VTE Deep Vein Thrombosis/Pulmonary Embolism Present on Admission: No
--- NOTE | 2017-08-13 14:37 | XRay Report ---
2 view chest 08/13/2017 126 PM Indication: Shortness of breath Comparison: Previous day at 1303 hours Findings: Cardiomediastinal contours are normal. Improved aeration of the left lung base. No acute osseous abnormalities. Visualized upper abdomen demonstrates no acute pathology. Impression: Improving aeration of the left lung base PROCEDURE INTERPRETED AT [facility] DEPARTMENT OF RADIOLOGY Final Report Signed by: Kj Waldrop
--- NOTE | 2017-08-13 16:11 | Sleep Medicine Consult ---
Assessment and Plan (1) Sleep apnea Status: Chronic Assessment and plan: Mr. Madison has his BiPAP device at his bedside and reports continued therapy. I was able to obtain a download from his device for the past month which does show a 19/30 day use and only at 36.7% nightly usage over 4 hours. On the nights his device was used, he averaged 4 hours and 29 minutes. While on an auto BiPAP setting, his AHI is 11.9 which is slightly elevated. He he does have reported oxygen desaturations during sleep despite use of BiPAP so a repeat overnight pulse oximetry while on BIPAP has been ordered. He is currently using nasal cannula O2 as well as supplemental oxygen in line with BiPAP therapy. He states he will be discharged home tomorrow and would like the test to be done prior to that time. I will schedule a follow-up visit in sleep clinic for routine follow-up of his sleep apnea. I reiterated the importance of daily treatment of his underlying sleep apnea especially given his history of heart disease and atrial fibrillation. Of note, he underwent overnight pulse oximetry while on BiPAP therapy on May 29, 2017. He had a baseline SPO2 of 91.5% with only 1.1 minutes with oxygen levels below 88%. This particular report does not meet the qualifications for supplemental nocturnal oxygen. Current Visit: Yes Qualifiers: Sleep apnea type: obstructive Qualified Code(s): G47.33 - Obstructive sleep apnea (adult) (pediatric) History of Present Illness Chief complaint: VANESSA History of present illness: Mr. Madison is a 57 year old male with a known history of mild obstructive sleep apnea. He was initially diagnosed in August 2015 with mild obstructive sleep apnea with a diagnostic AHI of 7.3, more significant REM component with an AHI of 20.3 and profound oxygen desaturations as low as 58%. He was prescribed CPAP for treatment with his last titration study in December of this year He was seen for routine follow-up in clinic in in January of this year and at that time, was not tolerating CPAP therapy well and was prescribed an auto BiPAP device. He was last seen in sleep clinic in January of this year and at that time, was tolerating BiPAP therapy much better than CPAP. Since that time, he has been hospitalized several times with reported "low oxygen" during sleep despite BiPAP therapy. He has undergone several overnight pulse oximetry test but so far, has not met qualifications for supplemental nocturnal oxygen therapy. He underwent right total knee replacement earlier this week and will be discharged home tomorrow. He has his BiPAP device at his bedside and states that he has continued therapy. He is comfortable with the pressure setting as well as his mask fit and does note improvement in his overall sleep quality with treatment. His main concern today is persistent oxygen desaturations despite treatment. He has a significant medical history including coronary artery disease requiring stent placement, hyperlipidemia and atrial fibrillation. He is seen routinely by his steel post installer but denies any further episodes of atrial fibrillation following ablation. Home Medications Medication Instructions Recorded Confirmed Type Ezetimibe [Zetia] 10 mg PO QAM 01/13/17 08/11/17 History Acetaminophen [Acetaminophen ER 1,300 mg PO QAM PRN 01/29/17 08/11/17 History Tab] Multivit-Min/FA/Lycopen/Lutein 1 each PO QAM 01/29/17 08/11/17 History [Centrum Silver Tablet] Nabumetone [Relafen] 500 mg PO BID W/MEALS 01/29/17 08/11/17 History Diclofenac 1% Gel [Voltaren 1% Gel] 1 applic TOP QID #1 applic 04/14/17 Rx Clopidogrel [Plavix] 75 mg PO DAILY #90 tablet 04/26/17 08/11/17 Rx Aspirin [Ecotrin] 81 mg PO DAILY 07/23/17 08/11/17 History Pantoprazole Tab [Protonix Tab] 40 mg PO DAILY 07/23/17 08/11/17 History Allergies Allergy/AdvReac Type Severity Reaction Status Date / Time [id number]-Atd Reductase AdvReac Intermediate Muscle Pain Verified 08/11/17 14: 22 Inhibitor - Constitutional Constitutional: Absent: daytime sleepiness, fatigue, headache(s), stops breathing during sleep - Cardiovascular Cardiovascular: Absent: chest pain at rest, chest pain with activity, dyspnea, dyspnea on exertion, edema, palpitations - Respiratory Respiratory: Present: snoring (without BIPAP). Absent: wheezing - Gastrointestinal Gastrointestinal: Absent: abdominal pain, heartburn - Genitourinary Genitourinary: Absent: nocturia - Neurological Neurological: Absent: confusion, dizziness - Psychiatric Psychiatric: Absent: anxiety, depression Exam (Pulmonay) H&P - Constitutional Vitals: Period Temp Pulse Resp BP Sys/Parker Pulse Ox Last 24 Hr 98.3 F-100.8 F 80-87 18-20 123-143/70-76 95-96 General appearance: normal weight, no acute distress - Head Head exam: Present: normocephalic, atraumatic - Eye Pupils: Present: AUNDREA - ENT ENT exam: Present: other (Mallampati class IV) - Expanded ENT Exam ENT Exam Mouth exam: Present: dry mucosa Throat exam: Absent: post pharyngeal erythema - Neck Neck exam: Absent: lymphadenopathy, tenderness, thyromegaly - Respiratory Respiratory exam: Present: rales, rhonchi, wheezes. Absent: clear to auscultation bilaterally - Cardiovascular Cardiovascular exam: Present: regular rate and rhythm. Absent: systolic murmur - Extremities Exam Extremities exam: Present: normal inspection, normal capillary refill, other ( Ice pack to Right Knee). Absent: calf tenderness, edema - Neurological Exam Neurological exam: Present: alert, oriented X3 - Psychiatric Psychiatric exam: Present: agitated - Skin Skin exam: Present: warm Medical,Surgical,& Family Hx - Medical History Cardio: History of: Cardiac Dysrhythmia (A-fib), Hypertension No history of: CHF, CAD, RI, Pacemaker, PVD, Valvular Heart Disease Psychological: No history of: Anxiety Disorders, ADHD, Behavior Problems, Bipolar Disorder, Depression, Previous Suicide Attempt, Psychiatric/Substance Abuse Tx, Schizophrenia, Violent Behavior, Psychiatric Problems Neurology: No history of: Seizures HEENT: History of: Ear Problem ([place] bilateral hearing aides), Eye Problem ( contacts/reading glasses), HEENT Problems No history of: Glaucoma, Oral Cancer Endocrine: History of: Dyslipidemia No history of: Adrenal Disease, Diabetes Mellitus (IDDM), Diabetes Mellitus ( NIDDM), Thyroid Disorder, Endocrine Cancer, Endocrine Problems Respiratory: History of: Obstructive Sleep Apnea (Bipap), Pneumonia No history of: Pulmonary Hypertension Gastrointestinal: History of: GERD Musculoskeletal: History of: Degenerative Disk Disease No history of: Amputation Hematology: No history of: Anemia, Bleeding Problems, Clotting Problems, Sickle Cell Disease, Hematologic Cancer, Blood Disorders Other: No history of: Anesthesia Reactions - Surgical History Cardiac Surgeries: Sugical HX of: Cardiac Catheterization (i heart stent and heart monitor in chest, heart ablation 2016), Cardiac Surgery (ablation) Thoracic Surgeries: Patient denies;: Organ Transplant, Lobectomy Neurologic Surgeries: Patient denies: Neurologic Surgery HEENT Surgeries: Surgical HX of: Tonsilectomy & Adenoidectomy Patient denies: Eye Surgery, Thyroid Surgery Abdominal Surgeries: Patient denies: Abdominal Surgery, Appendectomy, Cholecystectomy Reproductive Surgeries: Patient denies;: Breast Surgery, Genitourinary Surgery, Vasectomy Orthopedic Surgeries: Surgical HX of;: Total Knee Replacement (RIGHT 08/17) Patient denies;: Implanted Devices, Orthopedic Surgery, Spinal Surgery, Total Hip Replacement - Family History Family History: Reports;: Family Cancer (Mother: ovarian CA), Family Heart Disease (Father: ablation, bypass, pacemaker) Denies;: Family Anesthesia Reaction, Family Hypertension, Family Psychiatric Problems, Family Stroke - Social History Smoking Status: Former smoker Frequency of Alcohol Use: Occasionally Type of Drug Use: None Results - Labs CBC & BMP: 08/13/17 03:43 08/13/17 03:43 Quality Measures - VTE Deep Vein Thrombosis/Pulmonary Embolism Present on Admission: No
[2017-08-13] MEDS ORDERED: PANTOPRAZOLE 20 MG TABLET PO ONE (16:42)
[2017-08-13] MEDS: FONDAPARINUX 2.5 MG/0.5 ML SYRINGE SUBCUT SCH (20:29)
[2017-08-14 07:45] LABS: Basophils % 0.1 % (0.0-0.8); Eosinophils # 0.2 10*3/uL (0.0-0.87); Eosinophils % 1.4 % (0.00-10.9); Hematocrit 28.4 VOL% (42.0-52.0); Hemoglobin 9.6 GM/DL (14.0-18.0); Immature Granulocytes % 0.4 %; Immature Granulocytes Absolute 0.04 #; Lymphocytes # 2.1 10*3/uL (1.4-4.0); Lymphocytes % 19.5 % (21.2-54.2); Mean Corpuscular HGB Conc 33.8 GM/DL (32-36); Mean Corpuscular Hemoglobin 31 PG (27-34); Mean Corpuscular Volume 90.2 FL (87-102); Mean Platelet Volume 9.9 FL (9.6-12.0); Monocytes # 1.1 10*3/uL (0.11-0.8); Monocytes % 10.3 % (1.7-12.7); Neutrophils # 7.2 10*3/uL (1.4-7.4); Neutrophils % 68.3 % (38.7-73.9); Platelet Count 256 T/CUMM (130-400); Red Blood Count 3.15 MC/CUMM (3.8-5.5); Red Cell Distribution Width 12.2 % (9.3-17.3); White Blood Count 10.5 T/CUMM (4-12)
[2017-08-14] MEDS: ACETAMINOPHEN 325 MG TABLET PO PRN (08:00)
[2017-08-14 08:19] LABS: Calcium 8.7 MG/DL (8.5-10.1); Osmolality,Calculated 266.2 MOS/KG (273-304); Potassium 3.7 MMOL/L (3.5-5.1)
[2017-08-14] MEDS: EZETIMIBE 10 MG TABLET PO SCH (08:31)
[2017-08-14] MEDS: NABUMETONE 500 MG TABLET PO SCH (08:31)
[2017-08-14] MEDS: PANTOPRAZOLE 20 MG TABLET PO SCH (08:32)
[2017-08-14] MEDS: DOCUSATE SODIUM 100 MG CAPSULE PO SCH (08:33)
[2017-08-14] MEDS: CLOPIDOGREL 75 MG TABLET PO SCH (08:33)
[2017-08-14] MEDS: MULTIVITAMIN (CENTRUM) TABLET PO SCH (08:33)
[2017-08-14] MEDS: ASPIRIN EC 81 MG TABLET PO SCH (08:33)
--- NOTE | 2017-08-14 08:42 | Orthopedic Progress Note ---
Orthopedics - Subjective Interval history: Progressing fairly well with total knee rehab once accepted to swing bed will be able to discharge. Instructed Exam - Constitutional Vitals: Period Temp Pulse Resp BP Sys/Parker Pulse Ox Last 24 Hr 97.8 F-98.9 F 87-98 18-20 92-153/61-86 93-98 Results - Labs CBC & BMP: 08/14/17 07:28 08/14/17 07:28 Quality Measures - VTE Deep Vein Thrombosis/Pulmonary Embolism Present on Admission: No
--- NOTE | 2017-08-14 08:44 | Discharge Summary ---
Hospital Course - Hospital Course Hospital Course: Admitted for elective right total knee discharge to swing bed Diagnosis - Discharge Diagnosis (1) Osteoarthritis of right knee Status: Acute Discharge Plan - Discharge Data Disposition: Swing Bed, Hos Based, [facility] Condition at Discharge: Stable Discharge Diet: advance to your usual diet Activity: ambulate only with your walker, as per physical therapy, increase activity as tolerated Hygiene: may shower, keep area(s) dry Weight Bearing at Discharge: weight bear as tolerated Driving: not until seen by doctor - Discharge Medications New Fondaparinux [Arixtra] 2.5 mg SUBCUT Q24H 4 Days HYDROcodone/ACETAMIN 7.5-325 [Laurel 7.5-325] 2 tablet PO Q4H PRN #30 tablet PRN Reason: Moderate Pain unrelieved by 1 Continue Multivit-Min/FA/Lycopen/Lutein [Centrum Silver Tablet] 1 each PO QAM Nabumetone [Relafen] 500 mg PO BID W/MEALS Diclofenac 1% Gel [Voltaren 1% Gel] 1 applic TOP QID #1 applic Clopidogrel [Plavix] 75 mg PO DAILY #90 tablet Aspirin [Ecotrin] 81 mg PO DAILY Ezetimibe [Zetia] 10 mg PO QAM Acetaminophen [Acetaminophen ER Tab] 1,300 mg PO QAM PRN PRN Reason: Pain Pantoprazole Tab [Protonix Tab] 40 mg PO DAILY - Follow Up or Referral - Forms/Instructions Additional Discharge Instructions: Discharge a local swing bed continue with home medications Arixtra 4 more days Laurel for pain weightbearing as tolerated total knee protocol with CPM unit wolf to be removed and wound Steri- Stripped August 25. Follow-up 4 weeks Exam - Constitutional Vitals: Period Temp Pulse Resp BP Sys/Parker Pulse Ox Last 24 Hr 97.8 F-98.9 F 87-98 18-20 92-153/61-86 93-98 Discharge Results Procedures and tests throughout hospitalization: Pending Orders 08/13/17 07:36 Blood Culture Routine Labs on day of discharge: Labs from last 24 hours 08/14/17 08/14/17 07:28 07:28 WBC 10.5 RBC 3.15 L Hgb 9.6 L Hct 28.4 L MCV 90.2 MCH 31 MCHC 33.8 RDW 12.2 Plt Count 256 MPV 9.9 Neut % (Auto) 68.3 Lymph % (Auto) 19.5 L Reynolds % (Auto) 10.3 Eos % (Auto) 1.4 Baso % (Auto) 0.1 Neut # (Auto) 7.2 Lymph # (Auto) 2.1 Reynolds # (Auto) 1.1 H Eos # (Auto) 0.2 Baso # (Auto) 0.0 Immature Gran % 0.4 Nucleated RBC % 0.0 Immature Gran # 0.04 Nucleated RBCs # 0.00 Immature Plt Fraction 0.0 Sodium 134 L Potassium 3.7 Chloride 99 Carbon Dioxide 26 Anion Gap 12.7 BUN 8 Creatinine 0.80 GFR Calculation 134 BUN/Creatinine Ratio 10.00 Glucose 123 H Calculated Osmolality 266.2 L Calcium 8.7 Preliminary micro results at discharge 08/13/17 07:36 Blood Culture - Preliminary Blood No growth at 1 day 08/13/17 07:36 Blood Culture - Preliminary Blood No growth at 1 day DS: Provider Date of admission: 08/11/17 09:42 Primary care physician: Mitesh Morris DO Attending physician on admission: Brooks Collazo Jr., MD Consults: 08/11/17 09:42 Consult to Case Mgmt/Social Srvs [CONS] Routine Reason for Case Mgmt/Social Srvs: Rehab Home Health Swingbed/SNF/Assisted Equipment Consult Comment: Bedside Commode, CPM, Walker Consult to Occupational Therapy [CONS] Routine Reason for Occupational Therapy: Evaluate and Treat Consult Comment: ADL's Consult to Physical Therapy [CONS] Routine Reason for Physical Therapy: Evaluate and Treat Gait Training 08/11/17 09:44 Consult to Physician [CONS] Routine Comment: Consulting Provider: Rahul Gonzalez Consulting Provider Notified: Yes When should Consulting Provider be notified: Now Person Notified: asiya lópez Date Notified: 08/11/17 Time Notified: 13:29 08/13/17 09:36 Consult to Sleep Center [CONS] Routine Reason for Sleep Center: Sleep Center Physician Consult Comment: sleep study for CPAP Discharging clinician: Brooks Collazo Jr., MD
--- NOTE | 2017-08-14 09:13 | Family Practice Progress Note ---
Family Practice - PN: Subj Interval history: PCP :, pt is s/p rt knee total replacement , post op day 3, h/o hypertension not on BP meds currently, dyslipidemia, atrial fibrillation status post ablation, CAD s/p Stents, sleep apnea on CPAP Mentions is having pain in the right lower extremity, has been given norcos this a.m., but still hurting, No fever and past 24 hours no chills, no sweating, no cough , no nausea, vomiting, today denies chestpain or SOB, Patient is awaiting placement with swing bed, possible discharge today Exam (Progress Note) - Constitutional Vitals: Period Temp Pulse Resp BP Sys/Parker Pulse Ox Last 24 Hr 97.8 F-98.9 F 87-98 18-20 92-153/61-86 93-98 Exam: Examination: GENERAL: Patient is awake, in no acute distress, obese male patient, status postop right total knee replacement HEENT: normal, NECK: Neck is supple. No JVD. No carotid bruit. No thyromegaly. CVS: Regular rate and rhythm at the time of exam, S1 and S2 are normal. RESPIRATORY: Clear to ausculation bilaterally , No wheezes, rales or rhonchi. ABDOMEN: Soft and nontender. Bowel sounds are present. No hepatosplenomegaly. EXT: Right lower extremity, edema and leg, with dressing over the knee QUALITY CONTROL DIRECTOR:Alert, oriented,Cranial nerves 2-12 grossly intact. Results - Labs CBC & BMP: 08/14/17 07:28 08/14/17 07:28 Lab Results: I have reviewed the past 24 hour labs Labs: Blood culture, no growth so far - Diagnostic Findings Procedure: Chest x-ray: report reviewed by me, image reviewed by me Assessment and Plan (1) Status post total knee replacement, right Status: Acute Assessment and plan: POST OP day 3 today, oral pain meds when necessary, no IV access currently, advised IM Dilaudid 1 now ,continue Ortho recommendations H/H stable ,. 2. Sleep apnea, on CPAP, study consult done yesterday, 3. Dyslipidemia, on Zetia 4. History of A. fib, stable 5.HTN stable, continue current plan Awaiting Swing bed placement Current Visit: Yes (2) Sleep apnea Status: Chronic Current Visit: Yes Qualifiers: Sleep apnea type: obstructive Qualified Code(s): G47.33 - Obstructive sleep apnea (adult) (pediatric) (3) Dyslipidemia Status: Chronic Current Visit: Yes (4) History of atrial fibrillation Status: Chronic Current Visit: Yes (5) Hypertension Status: Chronic Current Visit: Yes Qualifiers: Hypertension type: essential hypertension Qualified Code(s): I10 - Essential (primary) hypertension Quality Measures - VTE Deep Vein Thrombosis/Pulmonary Embolism Present on Admission: No Specialty Discharge - Follow Up or Referrals Follow up with: Brooks Collazo Jr., MD [Physician] - 09/15/17 9:30 am
[2017-08-14] MEDS ORDERED: HYDROmorphone 2 MG/1 ML VIAL IM ONE (09:50)
[2017-08-14] MEDS: DICLOFENAC 1% GEL 100 GM TUBE TOP SCH ×2 (10:26→13:26)
[2017-08-14 16:23] VITALS: BP 134/79
== END 2017-08-14 16:45 | disposition swing bed (61) | DRG 470 ==
LOC: N.SDSINP 05:39 → N.3E 11:02
PROVIDERS: ADMIT Orthopaedic Surgery; ATTEND Orthopaedic Surgery

== ENCOUNTER 2019-09-24 20:14 | Observation (INO) ==
[2019-09-24] MEDS ORDERED: KETOROLAC 30 MG/1 ML VIAL IV STA (21:10)
[2019-09-24 21:16] LABS: Basophils # 0.1 10*3/uL (0.0-0.2); Basophils % 0.5 % (0.0-0.8); Eosinophils # 0.4 10*3/uL (0.0-0.87); Eosinophils % 3.6 % (0.00-10.9); Hematocrit 41.8 VOL% (42.0-52.0); Hemoglobin 13.9 GM/DL (14.0-18.0); Immature Granulocytes % 0.3 %; Immature Granulocytes Absolute 0.03 #; Lymphocytes # 3.9 10*3/uL (1.4-4.0); Lymphocytes % 37.1 % (21.2-54.2); Mean Corpuscular HGB Conc 33.3 GM/DL (32-36); Mean Corpuscular Volume 90.5 FL (87-102); Neutrophils % 48.5 % (38.7-73.9); Platelet Count 333 T/CUMM (130-400); Red Blood Count 4.62 MC/CUMM (3.8-5.5); Red Cell Distribution Width 12.9 % (9.3-17.3); White Blood Count 10.6 T/CUMM (4-12)
[2019-09-24 21:30] LABS: Alanine Aminotransferase 45 U/L (16-61); Albumin 4.2 G/DL (3.4-5.0); Alkaline Phosphatase 101 U/L (45-117); Aspartate Amino Transferase 21 U/L (0-37); Bilirubin,Total < 0.39 MG/DL (0.2-1.0); Blood Urea Nitrogen 12 MG/DL (7-18); Calcium 9.6 MG/DL (8.5-10.1); Estimated Glom Filtration Rate 112 ML/MIN; Glucose 92 MG/DL (74-106); Total Protein 7.9 G/DL (6.4-8.3)
[2019-09-25] MEDS ORDERED: NITROGLYCERIN SL 0.4 MG TABLET SL PRN (00:54)
[2019-09-25] MEDS ORDERED: CYCLOBENZAPRINE 10 MG TABLET PO PRN (02:56)
[2019-09-25] MEDS ORDERED: ENOXAPARIN 40 MG/0.4 ML SYRINGE SUBCUT ONE (08:00)
[2019-09-25] MEDS ORDERED: ACETAMINOPHEN 325 MG TABLET PO PRN (09:00)
[2019-09-25] MEDS ORDERED: CLOPIDOGREL 75 MG TABLET PO SCH (09:00)
[2019-09-25] MEDS ORDERED: SERTRALINE 100 MG TABLET PO SCH (09:00)
[2019-09-25] MEDS ORDERED: EZETIMIBE 10 MG TABLET PO SCH (09:00)
[2019-09-25] MEDS ORDERED: DONEPEZIL 10 MG TABLET PO SCH (09:00)
[2019-09-25] MEDS ORDERED: DICLOFENAC SODIUM 50 MG TABLET PO SCH (09:00)
[2019-09-25] MEDS ORDERED: MULTIVITAMIN (CENTRUM) TABLET PO SCH (09:00)
[2019-09-25] MEDS ORDERED: MONTELUKAST 10 MG TABLET PO SCH (09:00)
[2019-09-25] MEDS ORDERED: IBUPROFEN 400 MG TABLET PO PRN (09:00)
[2019-09-25] MEDS ORDERED: DICLOFENAC SODIUM 75 MG TABLET PO SCH (09:00)
[2019-09-25] MEDS ORDERED: GABAPENTIN 300 MG CAPSULE PO SCH (09:00)
[2019-09-25] MEDS ORDERED: MEMANTINE 10 MG TABLET PO SCH (09:00)
[2019-09-25] MEDS ORDERED: ASPIRIN EC 81 MG TABLET PO SCH (09:00)
[2019-09-25] MEDS ORDERED: PANTOPRAZOLE 40 MG TABLET PO SCH (09:00)
[2019-09-25] MEDS ORDERED: MORPHINE 4 MG/1 ML VIAL IV PRN (11:25)
[2019-09-25] MEDS ORDERED: ACETAMINOPHEN 325 MG TABLET PO ONE (11:55)
[2019-09-25] MEDS ORDERED: GABAPENTIN 600 MG TABLET PO ONE (11:59)
[2019-09-25] MEDS ORDERED: INFLUENZA VIRUS VACCINE 0.5 ML SYRINGE IM ONE (13:20)
[2019-09-25 15:50] VITALS: BP 133/73
[2019-09-25] MEDS ORDERED: GABAPENTIN 600 MG TABLET PO SCH (21:00)
[2019-09-25] MEDS ORDERED: ACETAMINOPHEN 325 MG TABLET PO SCH (21:00)
== END 2019-09-25 15:51 | disposition home or self-care (01) ==
LOC: N.ED 20:14 → N.EDINP 20:14 → N.2W 23:17
PROVIDERS: ADMIT Family Medicine; ATTEND Family Medicine

== ENCOUNTER 2020-02-02 05:39 | Inpatient (IN) ==
[2020-02-02] MEDS ORDERED: VANCOMYCIN 1,000 MG VIAL ONE (05:57)
[2020-02-02] MEDS ORDERED: ceFAZolin 1,000 MG VIAL ONE (05:57)
[2020-02-02] MEDS ORDERED: DEXMEDETOMIDINE 200 MCG/2 ML VIAL ONE (06:15)
[2020-02-02] MEDS ORDERED: MIDAZOLAM 2 MG/2 ML VIAL ONE (06:15)
[2020-02-02] MEDS ORDERED: BUPIVACAINE MPF 0.5% /EPI 30 ML VIAL ONE (06:15)
[2020-02-02] MEDS ORDERED: LIDOCAINE 1% 5 ML VIAL ONE (06:15)
[2020-02-02] MEDS ORDERED: DEXAMETHASONE 4 MG/1 ML VIAL ONE (06:16)
[2020-02-02] MEDS ORDERED: FAMOTIDINE 20 MG TABLET PO ONE (06:18)
[2020-02-02] MEDS ORDERED: ACETAMINOPHEN 500 MG TABLET PO ONE (06:18)
[2020-02-02] MEDS ORDERED: GABAPENTIN 400 MG CAPSULE PO ONE (06:18)
[2020-02-02] MEDS ORDERED: VANCOMYCIN INJ 1,000 MG in SODIUM CHLORIDE 0.9% 250 ML IV ONE (06:30)
[2020-02-02] MEDS ORDERED: LACTATED RINGERS 1,000 ML IV SCH (06:30)
[2020-02-02] MEDS ORDERED: PROMETHAZINE 25 MG/1 ML VIAL IM PRN (07:11)
[2020-02-02] MEDS ORDERED: BISACODYL 10 MG SUPP RECTAL PRN (07:11)
[2020-02-02] MEDS ORDERED: MAGNESIUM HYDROXIDE SUSP 30 ML UDCUP PO PRN (07:11)
[2020-02-02] MEDS ORDERED: diphenhydrAMINE CAP 25 MG CAPSULE PO PRN (07:11)
[2020-02-02] MEDS ORDERED: MORPHINE 4 MG/1 ML VIAL IV PRN (07:11)
[2020-02-02] MEDS ORDERED: LACTULOSE 20 GM/30 ML UDCUP PO PRN (07:11)
[2020-02-02] MEDS ORDERED: TEMAZEPAM 7.5 MG CAPSULE PO PRN (07:11)
[2020-02-02] MEDS ORDERED: ONDANSETRON 4 MG/2 ML VIAL IV PRN (07:11)
[2020-02-02] MEDS ORDERED: NITROGLYCERIN SL 0.4 MG TABLET SL PRN (07:13)
[2020-02-02] MEDS ORDERED: ceFAZolin 1,000 MG in SYRINGE 1 EACH IV ONE (07:30)
[2020-02-02] MEDS ORDERED: BUPIVACAINE SPINAL 0.75% 2 ML AMP SPINAL ONE (09:21)
[2020-02-02] MEDS ORDERED: LIDOCAINE 2% 5 ML VIAL ONE (09:21)
[2020-02-02] MEDS ORDERED: GLYCOPYRROLATE 0.4 MG/2 ML VIAL ONE (09:21)
[2020-02-02] MEDS ORDERED: propofoL 200 MG/20 ML VIAL IV ONE (09:21)
[2020-02-02] MEDS ORDERED: PHENYLEPHRINE 1 MG/10 ML SYRINGE IV ONE (09:22)
[2020-02-02] MEDS ORDERED: LACTATED RINGERS 1,000 ML IV ONE (09:22)
[2020-02-02] MEDS: IBUPROFEN 400 MG TABLET PO SCH ×2 (10:38→21:50)
[2020-02-02] MEDS: MONTELUKAST 10 MG TABLET PO SCH (10:38)
[2020-02-02] MEDS: DOCUSATE SODIUM 100 MG CAPSULE PO SCH ×2 (10:38→21:51)
[2020-02-02] MEDS: MULTIVITAMIN (CENTRUM) TABLET PO SCH (10:39)
[2020-02-02] MEDS: DICLOFENAC SODIUM 75 MG TABLET PO SCH ×2 (10:39→21:55)
[2020-02-02] MEDS: CYCLOBENZAPRINE 10 MG TABLET PO SCH ×2 (10:39→21:50)
[2020-02-02] MEDS: ASPIRIN EC 81 MG TABLET PO SCH (10:39)
[2020-02-02] MEDS: MEMANTINE 10 MG TABLET PO SCH ×2 (10:41→21:51)
[2020-02-02] MEDS: DONEPEZIL 10 MG TABLET PO SCH ×2 (10:41→21:51)
[2020-02-02] MEDS: GABAPENTIN 100 MG CAPSULE PO SCH ×2 (10:46→21:50)
[2020-02-02] MEDS: ceFAZolin 2,000 MG in PREMIX 1 EACH IV SCH ×2 (15:30→22:03)
[2020-02-02] MEDS: NON-FORMULARY MEDICATION (Dextromethorphan-Quinidine [Nuedexta] 1 CAPSULE) PO SCH (21:49)
[2020-02-02] MEDS: SERTRALINE 100 MG TABLET PO SCH (21:50)
[2020-02-02] MEDS: ACETAMINOPHEN 500 MG TABLET PO SCH (21:50)
[2020-02-02] MEDS: SIMVASTATIN 10 MG TABLET PO SCH (21:51)
[2020-02-02] MEDS: PANTOPRAZOLE 40 MG TABLET PO SCH (21:51)
[2020-02-03 06:13] LABS: Basophils % 0.2 % (0.0-0.8); Eosinophils % 0.3 % (0.00-10.9); Hematocrit 34.9 VOL% (42.0-52.0); Hemoglobin 11.5 GM/DL (14.0-18.0); Immature Granulocytes % 0.4 %; Immature Granulocytes Absolute 0.05 #; Lymphocytes % 17.4 % (21.2-54.2); Mean Corpuscular Volume 90.2 FL (87-102); Mean Platelet Volume 9.8 FL (9.6-12.0); Monocytes % 8.5 % (1.7-12.7); Neutrophils % 73.2 % (38.7-73.9); Platelet Count 279 T/CUMM (130-400); Red Blood Count 3.87 MC/CUMM (3.8-5.5); Red Cell Distribution Width 13.2 % (9.3-17.3); White Blood Count 11.5 T/CUMM (4-12)
[2020-02-03 06:39] LABS: Calcium 8.7 MG/DL (8.5-10.1); Osmolality,Calculated 275.7 MOS/KG (273-304)
[2020-02-03] MEDS: DONEPEZIL 10 MG TABLET PO SCH ×2 (09:35→21:35)
[2020-02-03] MEDS: ASPIRIN EC 81 MG TABLET PO SCH (09:35)
[2020-02-03] MEDS: MONTELUKAST 10 MG TABLET PO SCH (09:35)
[2020-02-03] MEDS: DOCUSATE SODIUM 100 MG CAPSULE PO SCH ×2 (09:35→21:31)
[2020-02-03] MEDS: CYCLOBENZAPRINE 10 MG TABLET PO SCH ×2 (09:35→21:34)
[2020-02-03] MEDS: DICLOFENAC SODIUM 75 MG TABLET PO SCH ×2 (09:35→21:38)
[2020-02-03] MEDS: GABAPENTIN 100 MG CAPSULE PO SCH ×2 (09:35→21:33)
[2020-02-03] MEDS: MULTIVITAMIN (CENTRUM) TABLET PO SCH (09:35)
[2020-02-03] MEDS: TICAGRELOR 90 MG TABLET PO SCH ×2 (09:35→21:34)
[2020-02-03] MEDS: MEMANTINE 10 MG TABLET PO SCH ×2 (09:37→21:34)
[2020-02-03] MEDS: IBUPROFEN 400 MG TABLET PO SCH ×2 (09:37→21:33)
[2020-02-03] MEDS: NON-FORMULARY MEDICATION (Dextromethorphan-Quinidine [Nuedexta] 1 CAPSULE) PO SCH ×3 (09:38→21:31)
[2020-02-03] MEDS: ACETAMINOPHEN 500 MG TABLET PO SCH ×2 (09:41→21:31)
[2020-02-03] MEDS: PANTOPRAZOLE 40 MG TABLET PO SCH (21:32)
[2020-02-03] MEDS: SIMVASTATIN 10 MG TABLET PO SCH (21:34)
[2020-02-03] MEDS: SERTRALINE 100 MG TABLET PO SCH (21:35)
[2020-02-04 06:14] LABS: Basophils % 0.5 % (0.0-0.8); Eosinophils # 0.4 10*3/uL (0.0-0.87); Hematocrit 34.2 VOL% (42.0-52.0); Hemoglobin 11.3 GM/DL (14.0-18.0); Immature Granulocytes % 0.4 %; Immature Granulocytes Absolute 0.03 #; Lymphocytes # 2.2 10*3/uL (1.4-4.0); Lymphocytes % 26.7 % (21.2-54.2); Monocytes % 11.7 % (1.7-12.7); Neutrophils % 55.7 % (38.7-73.9); Platelet Count 252 T/CUMM (130-400); Red Blood Count 3.76 MC/CUMM (3.8-5.5); Red Cell Distribution Width 13.5 % (9.3-17.3); White Blood Count 8.4 T/CUMM (4-12)
[2020-02-04 06:33] LABS: Albumin 3.1 G/DL (3.4-5.0); Bilirubin,Total 0.7 MG/DL (0.2-1.0); Calcium 8.8 MG/DL (8.5-10.1); Osmolality,Calculated 272.8 MOS/KG (273-304); Total Protein 7.2 G/DL (6.4-8.3)
[2020-02-04] MEDS: MULTIVITAMIN (CENTRUM) TABLET PO SCH (09:25)
[2020-02-04] MEDS: DOCUSATE SODIUM 100 MG CAPSULE PO SCH ×2 (09:25→20:49)
[2020-02-04] MEDS: MEMANTINE 10 MG TABLET PO SCH ×2 (09:26→20:50)
[2020-02-04] MEDS: DONEPEZIL 10 MG TABLET PO SCH ×2 (09:26→20:50)
[2020-02-04] MEDS: MONTELUKAST 10 MG TABLET PO SCH (09:26)
[2020-02-04] MEDS: ASPIRIN EC 81 MG TABLET PO SCH (09:26)
[2020-02-04] MEDS: ACETAMINOPHEN 500 MG TABLET PO SCH ×2 (09:26→20:49)
[2020-02-04] MEDS: CYCLOBENZAPRINE 10 MG TABLET PO SCH ×2 (09:26→20:49)
[2020-02-04] MEDS: IBUPROFEN 400 MG TABLET PO SCH ×2 (09:26→20:50)
[2020-02-04] MEDS: DICLOFENAC SODIUM 75 MG TABLET PO SCH ×2 (09:26→20:49)
[2020-02-04] MEDS: TICAGRELOR 90 MG TABLET PO SCH ×2 (09:26→20:50)
[2020-02-04] MEDS: NON-FORMULARY MEDICATION (Dextromethorphan-Quinidine [Nuedexta] 1 CAPSULE) PO SCH ×2 (09:53→20:48)
[2020-02-04] MEDS: GABAPENTIN 100 MG CAPSULE PO SCH ×2 (12:05→20:50)
[2020-02-04] MEDS: SERTRALINE 100 MG TABLET PO SCH (20:49)
[2020-02-04] MEDS: PANTOPRAZOLE 40 MG TABLET PO SCH (20:50)
[2020-02-04] MEDS: SIMVASTATIN 10 MG TABLET PO SCH (20:50)
[2020-02-05 06:17] LABS: Basophils # 0.1 10*3/uL (0.0-0.2); Basophils % 0.6 % (0.0-0.8); Eosinophils # 0.5 10*3/uL (0.0-0.87); Eosinophils % 6.6 % (0.00-10.9); Hematocrit 36.1 VOL% (42.0-52.0); Hemoglobin 11.6 GM/DL (14.0-18.0); Immature Granulocytes % 0.5 %; Immature Granulocytes Absolute 0.04 #; Lymphocytes # 2.4 10*3/uL (1.4-4.0); Lymphocytes % 29.7 % (21.2-54.2); Mean Corpuscular HGB Conc 32.1 GM/DL (32-36); Mean Corpuscular Volume 92.3 FL (87-102); Mean Platelet Volume 9.7 FL (9.6-12.0); Monocytes % 9.8 % (1.7-12.7); Neutrophils % 52.8 % (38.7-73.9); Platelet Count 286 T/CUMM (130-400); Red Blood Count 3.91 MC/CUMM (3.8-5.5); Red Cell Distribution Width 13.3 % (9.3-17.3); White Blood Count 8.2 T/CUMM (4-12)
[2020-02-05 06:50] LABS: Osmolality,Calculated 272.8 MOS/KG (273-304)
[2020-02-05] MEDS: ASPIRIN EC 81 MG TABLET PO SCH (09:53)
[2020-02-05] MEDS: CYCLOBENZAPRINE 10 MG TABLET PO SCH ×2 (09:53→21:04)
[2020-02-05] MEDS: DOCUSATE SODIUM 100 MG CAPSULE PO SCH ×2 (09:54→21:10)
[2020-02-05] MEDS: DONEPEZIL 10 MG TABLET PO SCH ×2 (09:54→21:02)
[2020-02-05] MEDS: GABAPENTIN 100 MG CAPSULE PO SCH ×2 (09:54→21:01)
[2020-02-05] MEDS: TICAGRELOR 90 MG TABLET PO SCH ×2 (09:54→21:03)
[2020-02-05] MEDS: ACETAMINOPHEN 500 MG TABLET PO SCH ×2 (09:55→21:02)
[2020-02-05] MEDS: MONTELUKAST 10 MG TABLET PO SCH (09:55)
[2020-02-05] MEDS: DICLOFENAC SODIUM 75 MG TABLET PO SCH ×2 (09:55→21:04)
[2020-02-05] MEDS: MEMANTINE 10 MG TABLET PO SCH ×2 (09:55→21:04)
[2020-02-05] MEDS: IBUPROFEN 400 MG TABLET PO SCH ×2 (09:55→21:02)
[2020-02-05] MEDS: MULTIVITAMIN (CENTRUM) TABLET PO SCH (09:56)
[2020-02-05] MEDS: NON-FORMULARY MEDICATION (Dextromethorphan-Quinidine [Nuedexta] 1 CAPSULE) PO SCH ×2 (14:23→21:09)
[2020-02-05] MEDS: SIMVASTATIN 10 MG TABLET PO SCH (21:03)
[2020-02-05] MEDS: PANTOPRAZOLE 40 MG TABLET PO SCH (21:03)
[2020-02-05] MEDS: SERTRALINE 100 MG TABLET PO SCH (21:04)
[2020-02-06 07:28] LABS: Calcium 9.2 MG/DL (8.5-10.1)
[2020-02-06] MEDS: MONTELUKAST 10 MG TABLET PO SCH (10:04)
[2020-02-06] MEDS: MULTIVITAMIN (CENTRUM) TABLET PO SCH (10:04)
[2020-02-06] MEDS: ASPIRIN EC 81 MG TABLET PO SCH (10:04)
[2020-02-06] MEDS: TICAGRELOR 90 MG TABLET PO SCH ×2 (10:04→21:54)
[2020-02-06] MEDS: MEMANTINE 10 MG TABLET PO SCH ×2 (10:04→21:54)
[2020-02-06] MEDS: ACETAMINOPHEN 500 MG TABLET PO SCH ×2 (10:05→21:55)
[2020-02-06] MEDS: DONEPEZIL 10 MG TABLET PO SCH ×2 (10:05→21:57)
[2020-02-06] MEDS: DOCUSATE SODIUM 100 MG CAPSULE PO SCH ×2 (10:05→21:51)
[2020-02-06] MEDS: IBUPROFEN 400 MG TABLET PO SCH ×2 (10:05→21:54)
[2020-02-06] MEDS: DICLOFENAC SODIUM 75 MG TABLET PO SCH ×2 (10:05→21:56)
[2020-02-06] MEDS: CYCLOBENZAPRINE 10 MG TABLET PO SCH ×2 (10:05→21:54)
[2020-02-06] MEDS: NON-FORMULARY MEDICATION (Dextromethorphan-Quinidine [Nuedexta] 1 CAPSULE) PO SCH ×2 (10:06→21:51)
[2020-02-06] MEDS: GABAPENTIN 100 MG CAPSULE PO SCH ×2 (10:20→21:55)
[2020-02-06] MEDS: PANTOPRAZOLE 40 MG TABLET PO SCH (21:55)
[2020-02-06] MEDS: SIMVASTATIN 10 MG TABLET PO SCH (21:56)
[2020-02-06] MEDS: SERTRALINE 100 MG TABLET PO SCH (21:56)
[2020-02-07] MEDS: CYCLOBENZAPRINE 10 MG TABLET PO SCH (08:57)
[2020-02-07] MEDS: DICLOFENAC SODIUM 75 MG TABLET PO SCH (08:57)
[2020-02-07] MEDS: MONTELUKAST 10 MG TABLET PO SCH (08:57)
[2020-02-07] MEDS: MULTIVITAMIN (CENTRUM) TABLET PO SCH (08:57)
[2020-02-07] MEDS: IBUPROFEN 400 MG TABLET PO SCH (08:57)
[2020-02-07] MEDS: DOCUSATE SODIUM 100 MG CAPSULE PO SCH (08:57)
[2020-02-07] MEDS: ACETAMINOPHEN 500 MG TABLET PO SCH (08:58)
[2020-02-07] MEDS: DONEPEZIL 10 MG TABLET PO SCH (08:58)
[2020-02-07] MEDS: TICAGRELOR 90 MG TABLET PO SCH (08:59)
[2020-02-07] MEDS: MEMANTINE 10 MG TABLET PO SCH (08:59)
[2020-02-07] MEDS: ASPIRIN EC 81 MG TABLET PO SCH (08:59)
[2020-02-07] MEDS ORDERED: GABAPENTIN 600 MG TABLET PO SCH (09:00)
[2020-02-07] MEDS: NON-FORMULARY MEDICATION (Dextromethorphan-Quinidine [Nuedexta] 1 CAPSULE) PO SCH (10:58)
[2020-02-07 15:38] VITALS: BP 114/85
== END 2020-02-07 18:14 | disposition swing bed (61) | DRG 468 ==
LOC: N.SDSINP 05:39 → N.OR 05:39 → N.SDSINP 07:11 → N.3E 09:53
PROVIDERS: ADMIT Orthopaedic Surgery; ATTEND Orthopaedic Surgery

== ENCOUNTER 2020-03-21 16:25 | Inpatient (IN) ==
[2020-03-21] MEDS ORDERED: SIMETHICONE CHEW 125 MG TABLET PO PRN (16:56)
[2020-03-21] MEDS ORDERED: hydrALAZINE 20 MG/1 ML VIAL IV PRN (16:56)
[2020-03-21] MEDS ORDERED: ZALEPLON 5 MG CAPSULE PO PRN (16:56)
[2020-03-21] MEDS ORDERED: MORPHINE 4 MG/1 ML VIAL IV PRN (16:56)
[2020-03-21] MEDS ORDERED: MAGNESIUM SULF RIDER 4 GM in PREMIX 1 EACH IV PRN (16:56)
[2020-03-21] MEDS ORDERED: ALUMINUM/MAGNES/SIMETH MAX STR 30 ML UDCUP PO PRN (16:56)
[2020-03-21] MEDS ORDERED: DOCUSATE SODIUM 100 MG CAPSULE PO PRN (16:56)
[2020-03-21] MEDS ORDERED: POTASSIUM CHLORIDE 20 MEQ TABLET PO PRN (16:56)
[2020-03-21] MEDS ORDERED: ACETAMINOPHEN 325 MG TABLET PO PRN (16:56)
[2020-03-21] MEDS ORDERED: ONDANSETRON 4 MG/2 ML VIAL IV PRN (16:56)
[2020-03-21] MEDS ORDERED: MAGNESIUM SULF RIDER 2 GM in PREMIX 1 EACH IV PRN (16:56)
[2020-03-21] MEDS ORDERED: KETOROLAC 30 MG/1 ML VIAL IV ONE (17:02)
[2020-03-21 17:55] LABS: Basophils % 0.3 % (0.0-0.8); Eosinophils # 0.2 10*3/uL (0.0-0.87); Eosinophils % 3.8 % (0.00-10.9); Hematocrit 38.7 VOL% (42.0-52.0); Hemoglobin 12.3 GM/DL (14.0-18.0); Immature Granulocytes % 0.2 %; Immature Granulocytes Absolute 0.01 #; Lymphocytes # 2.5 10*3/uL (1.4-4.0); Lymphocytes % 40.8 % (21.2-54.2); Mean Corpuscular HGB Conc 31.8 GM/DL (32-36); Mean Corpuscular Volume 91.3 FL (87-102); Mean Platelet Volume 9.9 FL (9.6-12.0); Monocytes % 9.9 % (1.7-12.7); Platelet Count 322 T/CUMM (130-400); Red Blood Count 4.24 MC/CUMM (3.8-5.5); Red Cell Distribution Width 13.8 % (9.3-17.3); White Blood Count 6.1 T/CUMM (4-12)
[2020-03-21 18:08] LABS: Troponin I < 0.015 NG/ML (0.00-0.045)
[2020-03-21 18:16] LABS: Albumin 3.8 G/DL (3.4-5.0); Bilirubin,Total 0.4 MG/DL (0.2-1.0); Osmolality,Calculated 270.8 MOS/KG (273-304); Thyroid Stimulating Hormone 2.4 uIU/ml (0.358-3.74); Total Protein 7.9 G/DL (6.4-8.3)
[2020-03-21] MEDS: PANTOPRAZOLE 40 MG TABLET PO SCH (18:34)
[2020-03-21] MEDS ORDERED: NITROGLYCERIN SL 0.4 MG TABLET SL PRN (21:05)
[2020-03-21] MEDS: CYCLOBENZAPRINE 10 MG TABLET PO SCH (22:10)
[2020-03-21] MEDS: GABAPENTIN 600 MG TABLET PO SCH (22:11)
[2020-03-21] MEDS: TICAGRELOR 90 MG TABLET PO SCH (22:11)
[2020-03-21] MEDS: ENOXAPARIN 40 MG/0.4 ML SYRINGE SUBCUT SCH (22:12)
[2020-03-21] MEDS: SIMVASTATIN 20 MG TABLET PO SCH (22:18)
[2020-03-22 02:30] LABS: Basophils % 0.5 % (0.0-0.8); Eosinophils # 0.3 10*3/uL (0.0-0.87); Eosinophils % 4.3 % (0.00-10.9); Hematocrit 37.4 VOL% (42.0-52.0); Hemoglobin 11.8 GM/DL (14.0-18.0); Immature Granulocytes % 0.3 %; Immature Granulocytes Absolute 0.02 #; Lymphocytes # 2.8 10*3/uL (1.4-4.0); Lymphocytes % 43.1 % (21.2-54.2); Mean Corpuscular HGB Conc 31.6 GM/DL (32-36); Mean Corpuscular Volume 92.8 FL (87-102); Mean Platelet Volume 9.7 FL (9.6-12.0); Neutrophils % 42.8 % (38.7-73.9); Platelet Count 310 T/CUMM (130-400); Red Blood Count 4.03 MC/CUMM (3.8-5.5); Red Cell Distribution Width 13.7 % (9.3-17.3); White Blood Count 6.5 T/CUMM (4-12)
[2020-03-22 02:49] LABS: Troponin I < 0.015 NG/ML (0.00-0.045)
[2020-03-22 03:10] LABS: Calcium 9.1 MG/DL (8.5-10.1); Osmolality,Calculated 271.8 MOS/KG (273-304); Risk Ratio 4.34; VLDL CHOLESTEROL 83.6 MG/DL
[2020-03-22] MEDS: DONEPEZIL 10 MG TABLET PO SCH ×2 (09:47→21:04)
[2020-03-22] MEDS: MULTIVITAMIN (CENTRUM) TABLET PO SCH (09:47)
[2020-03-22] MEDS: OMEGA 3 ACID ETHYL ESTERS 1 GM CAPSULE PO SCH (09:47)
[2020-03-22] MEDS: GABAPENTIN 600 MG TABLET PO SCH ×2 (09:47→21:04)
[2020-03-22] MEDS: MONTELUKAST 10 MG TABLET PO SCH (09:47)
[2020-03-22] MEDS: MEMANTINE 10 MG TABLET PO SCH ×2 (09:47→21:04)
[2020-03-22] MEDS: TICAGRELOR 90 MG TABLET PO SCH ×2 (09:47→21:04)
[2020-03-22] MEDS: PANTOPRAZOLE 40 MG TABLET PO SCH (09:48)
[2020-03-22] MEDS: CYCLOBENZAPRINE 10 MG TABLET PO SCH ×3 (09:48→21:05)
[2020-03-22] MEDS: ASPIRIN EC 81 MG TABLET PO SCH (09:48)
[2020-03-22 10:13] LABS: Troponin I < 0.015 NG/ML (0.00-0.045)
[2020-03-22] MEDS: DEXTROMETHORPHAN QUINIDINE PO SCH ×2 (13:56→21:12)
[2020-03-22] MEDS: SIMVASTATIN 20 MG TABLET PO SCH (21:04)
[2020-03-22] MEDS: SERTRALINE 100 MG TABLET PO SCH (21:04)
[2020-03-22] MEDS: ENOXAPARIN 40 MG/0.4 ML SYRINGE SUBCUT SCH (21:05)
[2020-03-22] MEDS: KETOROLAC 30 MG/1 ML VIAL IV PRN (21:10)
[2020-03-23 07:02] LABS: Basophils % 0.3 % (0.0-0.8); Eosinophils # 0.3 10*3/uL (0.0-0.87); Eosinophils % 4.2 % (0.00-10.9); Hematocrit 38.2 VOL% (42.0-52.0); Hemoglobin 11.9 GM/DL (14.0-18.0); Immature Granulocytes % 0.2 %; Immature Granulocytes Absolute 0.01 #; Lymphocytes # 2.6 10*3/uL (1.4-4.0); Lymphocytes % 40.4 % (21.2-54.2); Mean Corpuscular HGB Conc 31.2 GM/DL (32-36); Mean Corpuscular Volume 93.6 FL (87-102); Mean Platelet Volume 9.9 FL (9.6-12.0); Monocytes % 9.1 % (1.7-12.7); Neutrophils % 45.8 % (38.7-73.9); Platelet Count 295 T/CUMM (130-400); Red Blood Count 4.08 MC/CUMM (3.8-5.5); Red Cell Distribution Width 13.4 % (9.3-17.3); White Blood Count 6.5 T/CUMM (4-12)
[2020-03-23 07:18] LABS: Calcium 9.1 MG/DL (8.5-10.1); Osmolality,Calculated 272.8 MOS/KG (273-304)
[2020-03-23] MEDS: GABAPENTIN 600 MG TABLET PO SCH ×2 (09:24→20:20)
[2020-03-23] MEDS: CYCLOBENZAPRINE 10 MG TABLET PO SCH ×3 (09:24→20:21)
[2020-03-23] MEDS: MEMANTINE 10 MG TABLET PO SCH ×2 (09:24→20:21)
[2020-03-23] MEDS: OMEGA 3 ACID ETHYL ESTERS 1 GM CAPSULE PO SCH (09:25)
[2020-03-23] MEDS: MULTIVITAMIN (CENTRUM) TABLET PO SCH (09:25)
[2020-03-23] MEDS: DONEPEZIL 10 MG TABLET PO SCH ×2 (09:25→20:20)
[2020-03-23] MEDS: PANTOPRAZOLE 40 MG TABLET PO SCH (09:25)
[2020-03-23] MEDS: TICAGRELOR 90 MG TABLET PO SCH ×2 (09:25→20:21)
[2020-03-23] MEDS: ASPIRIN EC 81 MG TABLET PO SCH (09:25)
[2020-03-23] MEDS: MONTELUKAST 10 MG TABLET PO SCH (09:25)
[2020-03-23] MEDS: DEXTROMETHORPHAN QUINIDINE PO SCH ×2 (09:26→20:22)
[2020-03-23] MEDS: KETOROLAC 30 MG/1 ML VIAL IV PRN (09:28)
[2020-03-23] MEDS: methylPREDNISolone SOD SUC 40 MG/1 ML VIAL IV SCH ×2 (09:31→15:28)
[2020-03-23] MEDS: ACETAMINOPHEN 1300 MG PO SCH (09:33)
[2020-03-23] MEDS: SERTRALINE 100 MG TABLET PO SCH (20:20)
[2020-03-23] MEDS: SIMVASTATIN 20 MG TABLET PO SCH (20:20)
[2020-03-23] MEDS: ENOXAPARIN 40 MG/0.4 ML SYRINGE SUBCUT SCH ×2 (20:21→20:28)
[2020-03-24 05:36] LABS: Basophils % 0.1 % (0.0-0.8); Hematocrit 38.6 VOL% (42.0-52.0); Hemoglobin 12.3 GM/DL (14.0-18.0); Immature Granulocytes % 0.4 %; Immature Granulocytes Absolute 0.06 #; Lymphocytes # 1.5 10*3/uL (1.4-4.0); Lymphocytes % 10.3 % (21.2-54.2); Mean Corpuscular HGB Conc 31.9 GM/DL (32-36); Mean Corpuscular Volume 90.4 FL (87-102); Mean Platelet Volume 9.9 FL (9.6-12.0); Monocytes % 5.5 % (1.7-12.7); Neutrophils % 83.7 % (38.7-73.9); Platelet Count 347 T/CUMM (130-400); Red Blood Count 4.27 MC/CUMM (3.8-5.5); Red Cell Distribution Width 13.3 % (9.3-17.3); White Blood Count 14.5 T/CUMM (4-12)
[2020-03-24 05:55] LABS: Calcium 9.3 MG/DL (8.5-10.1); Osmolality,Calculated 272.1 MOS/KG (273-304)
[2020-03-24] MEDS ORDERED: POTASSIUM CHLORIDE RIDER 10 MEQ in PREMIX 1 EACH IV PRN (09:16)
[2020-03-24] MEDS ORDERED: DIAZEPAM 5 MG TABLET PO ONE (09:16)
[2020-03-24] MEDS ORDERED: MAGNESIUM SULF RIDER 2 GM in PREMIX 1 EACH IV PRN (09:16)
[2020-03-24] MEDS ORDERED: diphenhydrAMINE CAP 25 MG CAPSULE PO ONE (09:16)
[2020-03-24] MEDS: GABAPENTIN 600 MG TABLET PO SCH ×2 (09:43→20:22)
[2020-03-24] MEDS: MULTIVITAMIN (CENTRUM) TABLET PO SCH (09:43)
[2020-03-24] MEDS: DEXTROMETHORPHAN QUINIDINE PO SCH ×2 (09:43→20:21)
[2020-03-24] MEDS: OMEGA 3 ACID ETHYL ESTERS 1 GM CAPSULE PO SCH (09:44)
[2020-03-24] MEDS: MEMANTINE 10 MG TABLET PO SCH ×2 (09:44→20:21)
[2020-03-24] MEDS: MONTELUKAST 10 MG TABLET PO SCH (09:44)
[2020-03-24] MEDS: DONEPEZIL 10 MG TABLET PO SCH ×2 (09:44→20:21)
[2020-03-24] MEDS: CYCLOBENZAPRINE 10 MG TABLET PO SCH ×3 (09:44→20:21)
[2020-03-24] MEDS: PANTOPRAZOLE 40 MG TABLET PO SCH (09:44)
[2020-03-24] MEDS: TICAGRELOR 90 MG TABLET PO SCH ×2 (09:44→21:48)
[2020-03-24] MEDS: ASPIRIN EC 81 MG TABLET PO SCH (09:44)
[2020-03-24] MEDS ORDERED: LIDOCAINE 1% 20 ML VIAL ONE (13:12)
[2020-03-24] MEDS ORDERED: HEPARIN/NACL 0.9% 2 UNITS/ML 1,000 ML IV ONE (13:12)
[2020-03-24] MEDS ORDERED: fentaNYL 100 MCG/2 ML VIAL ONE ×2 (13:19→13:36)
[2020-03-24] MEDS ORDERED: MIDAZOLAM 2 MG/2 ML VIAL ONE ×3 (13:19→13:36)
[2020-03-24] MEDS ORDERED: SODIUM CHLORIDE 0.9% 1,000 ML IV SCH (14:30)
[2020-03-24] MEDS: SERTRALINE 100 MG TABLET PO SCH (20:21)
[2020-03-24] MEDS: SIMVASTATIN 20 MG TABLET PO SCH (20:21)
[2020-03-24] MEDS: ENOXAPARIN 40 MG/0.4 ML SYRINGE SUBCUT SCH (20:22)
[2020-03-25 06:20] LABS: Basophils % 0.3 % (0.0-0.8); Eosinophils # 0.1 10*3/uL (0.0-0.87); Eosinophils % 1.2 % (0.00-10.9); Hemoglobin 11.7 GM/DL (14.0-18.0); Immature Granulocytes % 0.3 %; Immature Granulocytes Absolute 0.03 #; Lymphocytes # 3.7 10*3/uL (1.4-4.0); Lymphocytes % 36.7 % (21.2-54.2); Mean Corpuscular HGB Conc 30.8 GM/DL (32-36); Mean Platelet Volume 9.8 FL (9.6-12.0); Neutrophils % 52.5 % (38.7-73.9); Platelet Count 300 T/CUMM (130-400); Red Cell Distribution Width 13.7 % (9.3-17.3)
[2020-03-25 07:06] LABS: Albumin 3.4 G/DL (3.4-5.0); Bilirubin,Total 0.9 MG/DL (0.2-1.0); Calcium 8.3 MG/DL (8.5-10.1); Osmolality,Calculated 275.7 MOS/KG (273-304)
[2020-03-25 08:00] VITALS: BP 108/67
[2020-03-25] MEDS: ASPIRIN EC 81 MG TABLET PO SCH (08:52)
[2020-03-25] MEDS: GABAPENTIN 600 MG TABLET PO SCH (08:52)
[2020-03-25] MEDS: OMEGA 3 ACID ETHYL ESTERS 1 GM CAPSULE PO SCH (08:52)
[2020-03-25] MEDS: MEMANTINE 10 MG TABLET PO SCH (08:52)
[2020-03-25] MEDS: DONEPEZIL 10 MG TABLET PO SCH (08:52)
[2020-03-25] MEDS: MONTELUKAST 10 MG TABLET PO SCH (08:52)
[2020-03-25] MEDS: MULTIVITAMIN (CENTRUM) TABLET PO SCH (08:52)
[2020-03-25] MEDS: CYCLOBENZAPRINE 10 MG TABLET PO SCH (08:53)
[2020-03-25] MEDS: TICAGRELOR 90 MG TABLET PO SCH (08:53)
[2020-03-25] MEDS: DEXTROMETHORPHAN QUINIDINE PO SCH (08:53)
[2020-03-25] MEDS: PANTOPRAZOLE 40 MG TABLET PO SCH (09:39)
== END 2020-03-25 12:02 | disposition home or self-care (01) | DRG 552 ==
LOC: N.TELEN → N.TELES → OBSVTOIN 16:46
PROVIDERS: ADMIT Internal Medicine Cardiovascular Disease; ATTEND Internal Medicine Cardiovascular Disease
PROC: CLCCHCL (ICD-10-PCS; 2020-03-24 13:45)

== ENCOUNTER 2020-09-26 05:52 | Inpatient (IN) ==
[2020-09-26 06:42] LABS: INR 0.9; Partial Thromboplastin Time 27.7 SECS (23.9-33.8)
[2020-09-26] MEDS ORDERED: GABAPENTIN 400 MG CAPSULE PO ONE (06:59)
[2020-09-26] MEDS ORDERED: FAMOTIDINE 20 MG TABLET PO ONE (06:59)
[2020-09-26] MEDS ORDERED: ACETAMINOPHEN 500 MG TABLET PO ONE (06:59)
[2020-09-26] MEDS ORDERED: LACTATED RINGERS 1,000 ML IV SCH (07:00)
[2020-09-26] MEDS ORDERED: VANCOMYCIN 1,000 MG VIAL ONE (07:15)
[2020-09-26] MEDS ORDERED: ceFAZolin 1,000 MG VIAL ONE (07:16)
[2020-09-26] MEDS ORDERED: BUPIVACAINE SPINAL 0.75% 2 ML AMP SPINAL ONE (09:10)
[2020-09-26] MEDS ORDERED: BUPIVACAINE MPF 0.25% 30 ML VIAL ONE (09:11)
[2020-09-26] MEDS ORDERED: MIDAZOLAM 2 MG/2 ML VIAL ONE ×2 (09:11→11:44)
[2020-09-26] MEDS ORDERED: TEMAZEPAM 7.5 MG CAPSULE PO PRN (10:08)
[2020-09-26] MEDS ORDERED: LACTULOSE 20 GM/30 ML UDCUP PO PRN (10:08)
[2020-09-26] MEDS ORDERED: ONDANSETRON 4 MG/2 ML VIAL IV PRN (10:08)
[2020-09-26] MEDS ORDERED: MAGNESIUM HYDROXIDE SUSP 30 ML UDCUP PO PRN (10:08)
[2020-09-26] MEDS ORDERED: diphenhydrAMINE CAP 25 MG CAPSULE PO PRN (10:08)
[2020-09-26] MEDS ORDERED: PROMETHAZINE 25 MG/1 ML VIAL IM PRN (10:08)
[2020-09-26] MEDS ORDERED: BISACODYL 10 MG SUPP RECTAL PRN (10:08)
[2020-09-26] MEDS ORDERED: NITROGLYCERIN SL 0.4 MG TABLET SL PRN (10:12)
[2020-09-26] MEDS ORDERED: TRANEXAMIC ACID 1,000 MG/10 ML VIAL ONE (10:43)
[2020-09-26] MEDS ORDERED: DEXAMETHASONE 4 MG/1 ML VIAL ONE (11:44)
[2020-09-26] MEDS ORDERED: LACTATED RINGERS 1,000 ML IV ONE (11:44)
[2020-09-26] MEDS ORDERED: MORPHINE 4 MG/1 ML VIAL IV PRN (14:51)
[2020-09-26] MEDS: DEXTROMETHORPHAN QUINIDINE PO SCH ×2 (15:10→22:24)
[2020-09-26] MEDS: ceFAZolin 2,000 MG in PREMIX 1 EACH IV SCH ×2 (15:30→23:32)
[2020-09-26] MEDS: MORPHINE 4 MG/1 ML VIAL IV PRN ×2 (18:15→21:50)
[2020-09-26] MEDS ORDERED: GABAPENTIN 100 MG CAPSULE PO SCH (21:00)
[2020-09-26] MEDS ORDERED: DONEPEZIL 10 MG TABLET PO SCH (21:00)
[2020-09-26] MEDS ORDERED: CYCLOBENZAPRINE 10 MG TABLET PO SCH (21:00)
[2020-09-26] MEDS ORDERED: MEMANTINE 10 MG TABLET PO SCH (21:00)
[2020-09-26] MEDS ORDERED: TICAGRELOR 90 MG TABLET PO SCH (21:00)
[2020-09-26] MEDS ORDERED: DICLOFENAC SODIUM 75 MG TABLET PO SCH (21:00)
[2020-09-26] MEDS ORDERED: SERTRALINE 100 MG TABLET PO SCH (21:00)
[2020-09-26] MEDS: FONDAPARINUX 2.5 MG/0.5 ML SYRINGE SUBCUT SCH ×2 (21:44→22:12)
[2020-09-26] MEDS: DOCUSATE SODIUM 100 MG CAPSULE PO SCH (21:44)
[2020-09-26] MEDS: ACETAMINOPHEN 500 MG TABLET PO SCH (21:45)
[2020-09-26] MEDS ORDERED: HALOPERIDOL 5 MG/ML AMP IM PRN (22:10)
[2020-09-27] MEDS: MORPHINE 4 MG/1 ML VIAL IV PRN ×2 (03:48→07:18)
[2020-09-27 06:01] LABS: Basophils % 0.1 % (0.0-0.8); Eosinophils # 0.1 10*3/uL (0.0-0.87); Eosinophils % 0.4 % (0.00-10.9); Hematocrit 35.2 VOL% (42.0-52.0); Hemoglobin 11.7 GM/DL (14.0-18.0); Immature Granulocytes % 0.3 %; Immature Granulocytes Absolute 0.04 #; Lymphocytes # 2.6 10*3/uL (1.4-4.0); Lymphocytes % 22.5 % (21.2-54.2); Mean Corpuscular HGB Conc 33.2 GM/DL (32-36); Mean Corpuscular Volume 88.7 FL (87-102); Monocytes % 9.2 % (1.7-12.7); Neutrophils % 67.5 % (38.7-73.9); Platelet Count 280 T/CUMM (130-400); Red Blood Count 3.97 MC/CUMM (3.8-5.5); Red Cell Distribution Width 14.4 % (9.3-17.3); White Blood Count 11.6 T/CUMM (4-12)
[2020-09-27 06:44] LABS: Osmolality,Calculated 269.1 MOS/KG (273-304)
[2020-09-27] MEDS: DOCUSATE SODIUM 100 MG CAPSULE PO SCH ×2 (09:00→21:05)
[2020-09-27] MEDS: MULTIVITAMIN (CENTRUM) TABLET PO SCH (09:00)
[2020-09-27] MEDS: SERTRALINE 50 MG TABLET PO SCH (09:00)
[2020-09-27] MEDS: GABAPENTIN 100 MG CAPSULE PO SCH ×2 (09:00→17:50)
[2020-09-27] MEDS: EZETIMIBE 10 MG TABLET PO SCH (09:00)
[2020-09-27] MEDS: CYCLOBENZAPRINE 10 MG TABLET PO SCH ×2 (09:00→17:50)
[2020-09-27] MEDS: TICAGRELOR 90 MG TABLET PO SCH ×2 (09:00→17:49)
[2020-09-27] MEDS: PANTOPRAZOLE 40 MG TABLET PO SCH (09:00)
[2020-09-27] MEDS: DONEPEZIL 10 MG TABLET PO SCH ×2 (09:00→17:49)
[2020-09-27] MEDS: ASPIRIN EC 81 MG TABLET PO SCH (09:00)
[2020-09-27] MEDS: MEMANTINE 10 MG TABLET PO SCH ×2 (09:00→17:50)
[2020-09-27] MEDS: DICLOFENAC SODIUM 75 MG TABLET PO SCH ×2 (09:00→17:50)
[2020-09-27] MEDS: DEXTROMETHORPHAN QUINIDINE PO SCH ×2 (09:00→17:50)
[2020-09-27] MEDS: ACETAMINOPHEN 500 MG TABLET PO SCH ×2 (09:39→21:05)
[2020-09-27] MEDS: SERTRALINE 100 MG TABLET PO SCH (17:50)
[2020-09-27] MEDS: FONDAPARINUX 2.5 MG/0.5 ML SYRINGE SUBCUT SCH (21:05)
[2020-09-28 04:37] LABS: Basophils % 0.3 % (0.0-0.8); Eosinophils # 0.4 10*3/uL (0.0-0.87); Eosinophils % 4.4 % (0.00-10.9); Hematocrit 33.9 VOL% (42.0-52.0); Hemoglobin 11.2 GM/DL (14.0-18.0); Immature Granulocytes % 0.3 %; Immature Granulocytes Absolute 0.03 #; Lymphocytes # 2.8 10*3/uL (1.4-4.0); Lymphocytes % 30.1 % (21.2-54.2); Mean Corpuscular Volume 90.4 FL (87-102); Mean Platelet Volume 9.9 FL (9.6-12.0); Monocytes % 11.1 % (1.7-12.7); Neutrophils % 53.8 % (38.7-73.9); Platelet Count 231 T/CUMM (130-400); Red Blood Count 3.75 MC/CUMM (3.8-5.5); Red Cell Distribution Width 14.6 % (9.3-17.3); White Blood Count 9.1 T/CUMM (4-12)
[2020-09-28 05:01] LABS: Calcium 8.9 MG/DL (8.5-10.1); Osmolality,Calculated 274.7 MOS/KG (273-304)
[2020-09-28] MEDS: MULTIVITAMIN (CENTRUM) TABLET PO SCH (08:42)
[2020-09-28] MEDS: DICLOFENAC SODIUM 75 MG TABLET PO SCH ×2 (08:42→17:20)
[2020-09-28] MEDS: PANTOPRAZOLE 40 MG TABLET PO SCH (08:42)
[2020-09-28] MEDS: TICAGRELOR 90 MG TABLET PO SCH ×2 (08:42→17:19)
[2020-09-28] MEDS: SERTRALINE 50 MG TABLET PO SCH (08:42)
[2020-09-28] MEDS: DONEPEZIL 10 MG TABLET PO SCH ×2 (08:42→17:19)
[2020-09-28] MEDS: CYCLOBENZAPRINE 10 MG TABLET PO SCH ×2 (08:42→17:20)
[2020-09-28] MEDS: ASPIRIN EC 81 MG TABLET PO SCH (08:42)
[2020-09-28] MEDS: EZETIMIBE 10 MG TABLET PO SCH (08:42)
[2020-09-28] MEDS: DOCUSATE SODIUM 100 MG CAPSULE PO SCH ×2 (08:42→20:50)
[2020-09-28] MEDS: DEXTROMETHORPHAN QUINIDINE PO SCH ×2 (08:43→17:20)
[2020-09-28] MEDS: ACETAMINOPHEN 500 MG TABLET PO SCH ×2 (08:50→20:51)
[2020-09-28] MEDS: GABAPENTIN 100 MG CAPSULE PO SCH ×2 (08:50→17:19)
[2020-09-28] MEDS: MEMANTINE 10 MG TABLET PO SCH ×2 (08:50→17:19)
[2020-09-28] MEDS: SERTRALINE 100 MG TABLET PO SCH (17:19)
[2020-09-28] MEDS: FONDAPARINUX 2.5 MG/0.5 ML SYRINGE SUBCUT SCH (20:51)
[2020-09-29 05:11] LABS: Basophils % 0.3 % (0.0-0.8); Eosinophils # 0.4 10*3/uL (0.0-0.87); Eosinophils % 4.6 % (0.00-10.9); Hematocrit 33.6 VOL% (42.0-52.0); Hemoglobin 11.2 GM/DL (14.0-18.0); Immature Granulocytes % 0.5 %; Immature Granulocytes Absolute 0.05 #; Lymphocytes # 2.7 10*3/uL (1.4-4.0); Lymphocytes % 29.3 % (21.2-54.2); Mean Corpuscular HGB Conc 33.3 GM/DL (32-36); Mean Corpuscular Volume 90.1 FL (87-102); Mean Platelet Volume 9.7 FL (9.6-12.0); Monocytes % 9.5 % (1.7-12.7); Neutrophils % 55.8 % (38.7-73.9); Platelet Count 260 T/CUMM (130-400); Red Blood Count 3.73 MC/CUMM (3.8-5.5); Red Cell Distribution Width 14.2 % (9.3-17.3); White Blood Count 9.3 T/CUMM (4-12)
[2020-09-29] MEDS: DICLOFENAC SODIUM 75 MG TABLET PO SCH ×2 (10:34→18:12)
[2020-09-29] MEDS: GABAPENTIN 100 MG CAPSULE PO SCH ×2 (10:35→18:14)
[2020-09-29] MEDS: SERTRALINE 50 MG TABLET PO SCH (10:36)
[2020-09-29] MEDS: CYCLOBENZAPRINE 10 MG TABLET PO SCH ×2 (10:36→18:12)
[2020-09-29] MEDS: ASPIRIN EC 81 MG TABLET PO SCH (10:36)
[2020-09-29] MEDS: DOCUSATE SODIUM 100 MG CAPSULE PO SCH (10:36)
[2020-09-29] MEDS: MULTIVITAMIN (CENTRUM) TABLET PO SCH (10:36)
[2020-09-29] MEDS: ACETAMINOPHEN 500 MG TABLET PO SCH (10:36)
[2020-09-29] MEDS: PANTOPRAZOLE 40 MG TABLET PO SCH (10:36)
[2020-09-29] MEDS: EZETIMIBE 10 MG TABLET PO SCH (10:37)
[2020-09-29] MEDS: MEMANTINE 10 MG TABLET PO SCH ×2 (10:37→18:13)
[2020-09-29] MEDS: DONEPEZIL 10 MG TABLET PO SCH ×2 (10:37→18:13)
[2020-09-29] MEDS: TICAGRELOR 90 MG TABLET PO SCH ×2 (10:42→18:14)
[2020-09-29] MEDS: DEXTROMETHORPHAN QUINIDINE PO SCH ×2 (10:45→18:18)
[2020-09-29 11:28] VITALS: BP 130/64
[2020-09-29] MEDS: SERTRALINE 100 MG TABLET PO SCH (18:13)
== END 2020-09-29 18:17 | disposition home health service (06) | DRG 470 ==
LOC: N.OR 05:52 → N.SDSINP 05:55 → N.3E 14:02
PROVIDERS: ADMIT Orthopaedic Surgery; ATTEND Orthopaedic Surgery

== ENCOUNTER 2021-07-12 21:52 | Observation (INO) ==
[2021-07-12 22:33] LABS: Basophils % 0.3 % (0.0-0.8); Eosinophils # 0.3 10*3/uL (0.0-0.87); Eosinophils % 3.6 % (0.00-10.9); Hematocrit 42.2 VOL% (42.0-52.0); Hemoglobin 13.5 GM/DL (14.0-18.0); Immature Granulocytes % 0.4 %; Immature Granulocytes Absolute 0.03 #; Lymphocytes # 2.1 10*3/uL (1.4-4.0); Lymphocytes % 29.3 % (21.2-54.2); Mean Corpuscular Volume 92.7 FL (87-102); Mean Platelet Volume 9.9 FL (9.6-12.0); Neutrophils % 58.4 % (38.7-73.9); Platelet Count 289 T/CUMM (130-400); Red Blood Count 4.55 MC/CUMM (3.8-5.5); Red Cell Distribution Width 13.2 % (9.3-17.3); White Blood Count 7.3 T/CUMM (4-12)
[2021-07-12 22:45] LABS: INR 0.9; PT Patient Result 10.6 SECS (10.5-12.0); Partial Thromboplastin Time 26.1 SECS (23.9-33.8)
[2021-07-12 23:04] LABS: Alanine Aminotransferase 52 U/L (16-61); Albumin 4.3 G/DL (3.4-5.0); Alkaline Phosphatase 98 U/L (45-117); Aspartate Amino Transferase 23 U/L (0-37); Bilirubin,Total < 0.39 MG/DL (0.20-1.00); Blood Urea Nitrogen 14 MG/DL (7-18); Calcium 9.5 MG/DL (8.5-10.1); Carbon Dioxide 25 MMOL/L (21-32); Estimated Glom Filtration Rate 96 ML/MIN; Glucose 100 MG/DL (74-106); Osmolality,Calculated 275.7 MOS/KG (273-304); Potassium 4.1 MMOL/L (3.5-5.1); Sodium 138 MMOL/L (136-145); Total Protein 7.5 G/DL (6.4-8.2)
[2021-07-12] MEDS ORDERED: ACETAMINOPHEN 325 MG TABLET PO PRN (23:50)
[2021-07-12] MEDS ORDERED: ONDANSETRON 4 MG/2 ML VIAL IV PRN (23:50)
[2021-07-13] MEDS: ASPIRIN CHEW 81 MG TABLET PO SCH ×2 (01:45→23:03)
[2021-07-13 06:03] LABS: Basophils % 0.4 % (0.0-0.8); Eosinophils # 0.3 10*3/uL (0.0-0.87); Eosinophils % 4.3 % (0.00-10.9); Hematocrit 39.2 VOL% (42.0-52.0); Hemoglobin 12.8 GM/DL (14.0-18.0); Immature Granulocytes % 0.3 %; Immature Granulocytes Absolute 0.02 #; Lymphocytes # 2.6 10*3/uL (1.4-4.0); Lymphocytes % 38.6 % (21.2-54.2); Mean Corpuscular HGB Conc 32.7 GM/DL (32-36); Mean Corpuscular Volume 91.6 FL (87-102); Mean Platelet Volume 10.3 FL (9.6-12.0); Neutrophils % 47.4 % (38.7-73.9); Platelet Count 248 T/CUMM (130-400); Red Blood Count 4.28 MC/CUMM (3.8-5.5); Red Cell Distribution Width 13.3 % (9.3-17.3); White Blood Count 6.7 T/CUMM (4-12)
[2021-07-13 06:54] LABS: Alanine Aminotransferase 43 U/L (16-61); Albumin 3.6 G/DL (3.4-5.0); Alkaline Phosphatase 83 U/L (45-117); Aspartate Amino Transferase 20 U/L (0-37); Bilirubin,Total < 0.39 MG/DL (0.20-1.00); Blood Urea Nitrogen 17 MG/DL (7-18); Calcium 8.9 MG/DL (8.5-10.1); Carbon Dioxide 23 MMOL/L (21-32); Estimated Glom Filtration Rate 133 ML/MIN; Glucose 97 MG/DL (74-106); Osmolality,Calculated 276.7 MOS/KG (273-304); Potassium 3.8 MMOL/L (3.5-5.1); Sodium 138 MMOL/L (136-145); Total Protein 6.9 G/DL (6.4-8.2)
[2021-07-13] MEDS ORDERED: NITROGLYCERIN SL 0.4 MG TABLET SL PRN (07:38)
[2021-07-13] MEDS ORDERED: ZALEPLON 5 MG CAPSULE PO PRN (08:21)
[2021-07-13] MEDS: DONEPEZIL 10 MG TABLET PO SCH ×2 (09:33→20:59)
[2021-07-13] MEDS: QUEtiapine 25 MG TABLET PO SCH (09:33)
[2021-07-13] MEDS: ARIPiprazole 2 MG TABLET PO SCH (09:33)
[2021-07-13] MEDS: GABAPENTIN 300 MG CAPSULE PO SCH ×2 (09:33→20:59)
[2021-07-13] MEDS: PANTOPRAZOLE 40 MG TABLET PO SCH (09:33)
[2021-07-13] MEDS: EZETIMIBE 10 MG TABLET PO SCH (09:33)
[2021-07-13] MEDS: MEMANTINE 10 MG TABLET PO SCH ×2 (09:33→20:59)
[2021-07-13] MEDS: SERTRALINE 100 MG TABLET PO SCH ×2 (09:34→20:59)
[2021-07-13] MEDS ORDERED: FUROSEMIDE 40 MG/4 ML VIAL IV ONE (09:40)
[2021-07-13] MEDS ORDERED: POTASSIUM CHLORIDE RIDER 10 MEQ/100 ML PREMIX IV PRN (10:36)
[2021-07-13] MEDS ORDERED: MAGNESIUM SULF RIDER 2 GM/50 ML PREMIX IV PRN (10:36)
[2021-07-13] MEDS ORDERED: DIAZEPAM 5 MG TABLET ONE (12:21)
[2021-07-13] MEDS ORDERED: diphenhydrAMINE CAP 25 MG CAPSULE ONE (12:21)
[2021-07-13] MEDS: carvediloL 6.25 MG TABLET PO SCH ×2 (12:27→20:59)
[2021-07-13] MEDS ORDERED: diphenhydrAMINE CAP 50 MG CAPSULE PO ONE ×2 (12:43→14:00)
[2021-07-13] MEDS ORDERED: DIAZEPAM 5 MG TABLET PO ONE ×2 (12:43→14:00)
[2021-07-13] MEDS ORDERED: NITROGLYCERIN DRIP 50 MG/250 ML BOTTLE IV ONE (12:58)
[2021-07-13] MEDS ORDERED: LIDOCAINE 1% 20 ML VIAL ONE (12:58)
[2021-07-13] MEDS ORDERED: VERAPAMIL 5 MG/2 ML VIAL ONE (12:58)
[2021-07-13] MEDS ORDERED: HEPARIN/NACL 0.9% 2 UNITS/ML 2,000 UNIT/1,000 ML BAG IV ONE (12:58)
[2021-07-13] MEDS ORDERED: fentaNYL 100 MCG/2 ML VIAL ONE (13:06)
[2021-07-13] MEDS ORDERED: MIDAZOLAM 2 MG/2 ML VIAL ONE (13:06)
[2021-07-13] MEDS ORDERED: HEPARIN 5,000 UNIT/1 ML VIAL ONE ×2 (13:11→13:22)
[2021-07-13] MEDS ORDERED: CLOPIDOGREL 300 MG TABLET ONE (13:36)
[2021-07-13] MEDS ORDERED: SODIUM CHLORIDE 0.9% 1,000 ML IV SCH (14:00)
[2021-07-13] MEDS: ACETAMINOPHEN 325 MG TABLET PO SCH (20:59)
[2021-07-13] MEDS: DICLOFENAC SODIUM 75 MG TABLET PO SCH (21:00)
[2021-07-13] MEDS: CYCLOBENZAPRINE 10 MG TABLET PO SCH (21:00)
[2021-07-14 05:57] LABS: Basophils % 0.5 % (0.0-0.8); Eosinophils # 0.3 10*3/uL (0.0-0.87); Eosinophils % 4.9 % (0.00-10.9); Hematocrit 42.3 VOL% (42.0-52.0); Hemoglobin 13.8 GM/DL (14.0-18.0); Immature Granulocytes % 0.3 %; Immature Granulocytes Absolute 0.02 #; Lymphocytes # 2.4 10*3/uL (1.4-4.0); Lymphocytes % 36.5 % (21.2-54.2); Mean Corpuscular HGB Conc 32.6 GM/DL (32-36); Mean Corpuscular Volume 90.6 FL (87-102); Mean Platelet Volume 10.4 FL (9.6-12.0); Monocytes % 8.7 % (1.7-12.7); Neutrophils % 49.1 % (38.7-73.9); Platelet Count 276 T/CUMM (130-400); Red Blood Count 4.67 MC/CUMM (3.8-5.5); Red Cell Distribution Width 13.2 % (9.3-17.3); White Blood Count 6.6 T/CUMM (4-12)
[2021-07-14 06:31] LABS: Bilirubin,Total 0.5 MG/DL (0.20-1.00); Calcium 9.2 MG/DL (8.5-10.1); Osmolality,Calculated 270.1 MOS/KG (273-304); Potassium 3.7 MMOL/L (3.5-5.1); Total Protein 7.6 G/DL (6.4-8.2)
[2021-07-14] MEDS ORDERED: CLOPIDOGREL 75 MG TABLET PO SCH (09:00)
[2021-07-14] MEDS ORDERED: FUROSEMIDE 40 MG TABLET PO SCH (09:00)
[2021-07-14] MEDS ORDERED: ASPIRIN EC 81 MG TABLET PO SCH (09:00)
[2021-07-14] MEDS: EZETIMIBE 10 MG TABLET PO SCH (09:15)
[2021-07-14] MEDS: SERTRALINE 100 MG TABLET PO SCH (09:15)
[2021-07-14] MEDS: ARIPiprazole 2 MG TABLET PO SCH (09:15)
[2021-07-14] MEDS: PANTOPRAZOLE 40 MG TABLET PO SCH (09:15)
[2021-07-14] MEDS: CYCLOBENZAPRINE 10 MG TABLET PO SCH (09:15)
[2021-07-14] MEDS: ACETAMINOPHEN 325 MG TABLET PO SCH (09:15)
[2021-07-14] MEDS: GABAPENTIN 300 MG CAPSULE PO SCH (09:15)
[2021-07-14] MEDS: MEMANTINE 10 MG TABLET PO SCH (09:16)
[2021-07-14] MEDS: DONEPEZIL 10 MG TABLET PO SCH (09:16)
[2021-07-14] MEDS: DICLOFENAC SODIUM 75 MG TABLET PO SCH (09:16)
[2021-07-14] MEDS: QUEtiapine 25 MG TABLET PO SCH (09:16)
[2021-07-14] MEDS: carvediloL 6.25 MG TABLET PO SCH (09:16)
[2021-07-14 10:31] VITALS: BP 135/82
== END 2021-07-14 15:59 | disposition home or self-care (01) ==
LOC: N.ED 21:52 → N.EDINP 21:52 → N.TELES 07-13 02:01
PROVIDERS: ADMIT Family Medicine; ATTEND Family Medicine
PROC: CLCCHCL (ICD-10-PCS; 2021-07-13 14:45)